=== PATIENT | female | born 1940 | race Caucasian/White ===

== ENCOUNTER 2024-09-12 12:44 | Outpatient (CLI) | payer MEDICARE, SELFPAY ==
--- NOTE | ~2024-09-12 | MR_ITS ---
MRI of the lumbar spine Clinical History: Spinal stenosis Technique: Axial T2-weighted images, and sagittal T1-weighted, T2-weighted, and T2 fat-sat images wer e acquired. Findings: There is posterior and interbody fusion from L5 to S1, bilaterally and transpedicular screw s present. There is L5 laminectomy. No acute fracture seen. There are probable minimal grade 1 retrol istheses, of L2 over L3 and L4 over L5. No suspicious bone marrow signal abnormality seen. At L1-L2, there is mild degenerative disc narrowing with minimal disc bulge and moderate facet arthro jim. No central canal stenosis. There is moderate to advanced bilateral neural foraminal narrowing, right worse than left. At L2-L3, there is severe degenerative disc narrowing. There is disc bulge and severe facet arthropat hy, which result in severe spinal canal stenosis/thecal sac compression. There is severe right neural foraminal narrowing, and moderate left neural foraminal narrowing. At L3-L4, there is moderate degenerative disc narrowing. Diffuse disc bulge and severe facet arthropa thy result in severe spinal canal stenosis/thecal sac compression. There is superimposed 8 mm right s ynovial cyst, which also contributes to spinal canal stenosis at this level. There is severe bilatera l neural foraminal compromise. At L4-L5, there is severe degenerative disc narrowing. There is diffuse disc bulge with advanced face t arthropathy. No claudia central canal stenosis. There is severe bilateral neural foraminal narrowing, left worse than right. At L5-S1, there is no significant disc bulge or herniation. No spinal canal stenosis, likely related to prior posterior decompression. There is probable moderate bilateral neural foraminal compromise. Paravertebral soft tissues are unremarkable. Impression: Severe degenerative spondylosis, especially at L2-L3 and L3-L4, as detailed above. Moderate degenerative spondylosis to the remaining lumbar levels. Postoperative change at L5-S1, as above. Reviewed, dictated and finalized at location M. NE CONTENT COORDINATOR Impression: Severe degenerative spondylosis, especially at L2-L3 and L3-L4, as detailed abo ve. Moderate degenerative spondylosis to the remaining lumbar levels. Postoperative change at L5-S1, as above.
== END 2024-09-12 12:45 | disposition home or self-care (01) ==
LOC: GOSHIMG 12:45
PROVIDERS: PCP Orthopaedic Surgery; Visit Provider Orthopaedic Surgery
DX: M47.816 Spondylosis without myelopathy or radiculopathy, lumbar region (principal); Z98.890 Other specified postprocedural states
CPT/HCPCS: 72148

== ENCOUNTER 2025-04-12 21:19 | Emergency (ER) | payer MEDICARE, SELFPAY ==
--- NOTE | ~2025-04-12 | XR_ITS ---
XR chest 1V portable Ordering provider: Ulises Mcmahon MD History: 85 years Female with . chest pain . Comparison: None. FINDINGS: MEDIASTINUM: The cardiac silhouette is not enlarged. Calcified azygos lymph node. LUNGS: No effusions or pneumothorax. Prominent bronchovascular markings with infiltrate seen in the right lower lobe OTHER: No free air under the diaphragm. IMPRESSION: Right basilar atelectasis versus pneumonia. Follow-up and clinical correlation advised. Reviewed, dictated and finalized at location A.
[2025-04-12 21:27] VITALS: PULSE 77
--- NOTE | 2025-04-12 21:27 | ECG_ITS ---
Test Date: 2025-04-12 21:41:03 Measurements Intervals Wilson Rate: 75 P: 39 MS: 199 QRS: -17 QRSD: 90 T: 113 QT: 397 QTc: 445 Interpretive Statements SINUS RHYTHM LEFT VENTRICULAR HYPERTROPHY AND ST-T CHANGE [VOLTAGE CRITERIA PLUS ST/T ABNORMALITY] No previous ECG available for comparison Electronically Signed On 04-13-2025 11:48:48 CDT by Edward Anthony M.D.
[2025-04-12 21:28] VITALS: BP 147/90; PULSE 76; RESP 19; TEMP 36.4; O2SAT 95
[2025-04-12 21:35] VITALS: O2SAT 95
[2025-04-12 21:43] LABS: Hematocrit 42.2 % (37.0-47.0); Hemoglobin 14.2 g/dL (12.0-15.0); Immature Granulocyte Percent A 0.1 % (0-0.5); Lymphocytes Absolute Auto 2.78 K/mm3 (0.9-3.2); Mean Corpuscular HGB Conc 33.6 g/dl (32-36); Mean Corpuscular Hemoglobin 31.4 pg (26-34); Mean Corpuscular Volume 93.4 fl (80-100); Nucleated Red Blood Cells Absolute Auto 0.000 K/mm3 (0.0-0.012); Nucleated Red Blood Cells Perc 0.0 % (0.0-0.2); Platelet Count Result 227 k/mm3 (150-375); Red Blood Count 4.52 M/mm3 (4.2-5.4); White Blood Count 7.7 K/mm3 (4.5-10.0)
--- NOTE | 2025-04-12 21:47 | ED_ITS ---
HPI - Chest Pain General Chief Complaint: Chest Pain Stated Complaint: chest pain History of Present Illness HPI narrative: Patient is an 85-year-old female who presents emergency department this evening complaining of chest pain. States that are round 8:00 p.m. she started to feel some pressure on her chest. Denies any sharp stabbing chest pain. States that she felt a little short of breath during this episode. Denies any history of cardiovascular disease. States the chest pain does radiate into her neck. EMS did report that the patient upon arrival was found to be in AFib, however, she is currently in sinus rhythm while on the monitor. She was administered sublingual nitroglycerin prior to arrival. EMS reports that her heart rate was ranging between 80-140 but did normalize to 70s after the nitroglycerin. Patient is alert and oriented to person, place, time and situation. Denies any recent illness, fevers or chills. Denies any nausea vomiting or abdominal pain. No additional symptoms or concerns at this time. Related Data Home Medications ?Medication ?Instructions ?Recorded ?Confirmed ?Last Taken ?Type amitriptyline 25 mg tablet 25 mg PO QHS 10/10/21 12/19/24 Unknown History aspirin 81 mg tablet,delayed 81 mg PO DAILY 10/10/21 12/19/24 Unknown History release (Adult Low Dose Aspirin) atenolol 100 mg tablet 100 mg PO DAILY 10/10/21 12/19/24 Unknown History rosuvastatin 20 mg tablet 20 mg PO DAILY 10/10/21 12/19/24 Unknown History sumatriptan succinate 50 mg tablet 50 mg PO ONCE 10/10/21 12/19/24 Unknown History celecoxib 200 mg capsule 200 mg PO DAILY 10/24/24 12/19/24 Unknown History Allergies Allergy/AdvReac Type Severity Reaction Status Date / Time adhesive Allergy Unknown unknown Verified 12/19/24 10:58 doxycycline Allergy Unknown unknown Verified 12/19/24 10:58 levofloxacin (From Levaquin) Allergy Unknown unknown Verified 12/19/24 10:58 Review of Systems 2 Review of Systems: All systems are reviewed and are negative unless stated otherwise in the HPI. PMFSH Past Medical History Medical History High triglycerides Hypertension Surgical History Surgical History History of partial thyroidectomy History of back surgery x2 History of hysterectomy History of neck surgery History of right hip replacement 04/2018 Family History Family History Mother Hypertension Cerebrovascular accident Father ALS (amyotrophic lateral sclerosis) Social History Social History Smoking status: Former smoker Alcohol intake: never Substance use: never Substance use type: does not use Do You Feel Safe in your Home?: Yes Lack of Transportation: No Lack of Food: Never True Current Housing: I Have Housing Concerned About Future Housing: No Difficulty Paying Gas/Electric Bills: No Difficulty Paying for Meds: No Currently Unemployed: No Education: High School Diploma/GED Difficulty w/ Childcare or Family Care: No Living arrangements: with family Occupation/Education: retired Exam 2 Narrative: General: Alert, awake, afebrile, in no acute distress. HEENT: PERRL, no rhinorrhea, no post nasal drip, oropharynx clear. Neck: Trachea midline, no JVD, no lymphadenopathy. Cardiovascular: Regular rate and rhythm, no murmurs, rubs or gallops, no peripheral edema. Respiratory: Clear to auscultation bilaterally, no tachypnea, no wheezing, no rhonchi, no rubs, no respiratory distress. Abdomen: Soft, nontender, nondistended, no rebound, no guarding, no peritoneal signs. Musculoskeletal: No joint swelling or deformity, normal muscle tone. Skin: No rashes or petechia, no signs of infection. Psychiatric: Alert and oriented, normal behavior and judgment for situation. Neurological: Alert and oriented to person, place, and time. Follows all commands. No focal deficits, speech is clear and fluent. Course Vital Signs Vital signs: Vital Signs Pulse Rate 77 04/12/25 21:27 Temperature 97.6 F 04/12/25 21:28 Pulse Rate 74 04/12/25 22:55 Respiratory Rate 18 04/12/25 22:55 Blood Pressure 136/75 04/12/25 22:55 Pulse Oximetry 94 04/12/25 22:55 Oxygen Delivery Room Air 04/12/25 21:35 MDM - Chest Pain MDM Narrative Medical decision making narrative: The patient was evaluated by myself in the emergency department. History is obtained from patient who is an independent historian and physical exam was performed. External medical records were reviewed at this time. IV was established and pertinent tests were ordered. EKG was obtained which revealed sinus rhythm rate 75 beats per minute, no evidence of arrhythmia or acute ischemia. EKG was independently interpreted by me and is currently pending official cardiology read. Laboratory results obtained revealing no acute process. Two sets of troponins were obtained and both noted to be negative. I did recommend obtaining a 6 hour troponin giving the patient's chest pain started less than 6 hours ago, however, patient refused stating that she feels better and would like to be discharged. Imaging studies obtained included CXR which was independently interpreted by me revealing no acute cardiopulmonary process, which is pending final radiology interpretation. Differential diagnosis considerations include acute coronary syndrome, infectious process such as pneumonia, acute viral syndrome. Comorbidities impacting this visit include history of hypertension. I have evaluated and discussed social determinants of health with the patient that could potentially impact subsequent diagnosis and treatment plans. On repeat assessment of the patient, reevaluation revealed that the patient is doing well and is in no acute distress. Patient symptoms have improved since she arrived to our emergency department. Repeat vital signs were all reviewed and noted to be stable. Differential diagnosis and treatment plan were discussed with the patient at bedside. Patient agrees with discussion and after shared medical decision making agrees with discharge. All questions were answered to the patient's satisfaction. Patient will follow up with cardiology in 3-5 days. Patient was provided with strict return precautions and instructed to return to the emergency department if any new or worsening symptoms develop. The patient was discharged in stable condition. Lab Data 04/12/25 21:38 04/12/25 21:38 Labs: Lab Results 04/12/25 04/12/25 04/13/25 Range/Units 21:38 21:38 01:21 WBC 7.7 (4.5-10.0) K/mm3 RBC 4.52 (4.2-5.4) M/mm3 Hgb 14.2 (12.0-15.0) g/dL Hct 42.2 (37.0-47.0) % MCV 93.4 (80-100) fl MCH 31.4 (26-34) pg MCHC 33.6 (32-36) g/dl RDW 12.8 (11.5-14.5) % Plt Count 227 (150-375) k/mm3 MPV 9.6 (7.4-10.4) fl Immature Gran % (Auto) 0.1 (0-0.5) % Neut % (Auto) 46.6 (45.5-73.1) % Lymph % (Auto) 36.2 (18.3-44.2) % [place] % (Auto) 11.6 H (2.6-8.5) % Eos % (Auto) 4.7 H (0-4.4) % Baso % (Auto) 0.8 (0.2-1.2) % Lymph # (Auto) 2.78 (0.9-3.2) K/mm3 [place] # (Auto) 0.9 H (0.1-0.6) K/mm3 Eos # (Auto) 0.4 H (0-0.3) K/mm3 Baso # (Auto) 0.1 (0.0-0.1) K/mm3 Abs Immat Gran (auto) 0.01 (0.00-0.031) K/mm3 Absolute Neuts (auto) 3.6 (1.3-6.7) K/mm3 Absolute Nucleated RBC 0.000 (0.0-0.012) K/mm3 Nucleated RBC % 0.0 (0.0-0.2) % PT 13.7 (11.1-14.7) Seconds INR 1.1 APTT Cancelled 28.5 Sodium 137 (137-145) mmol/L Potassium 3.5 (3.4-5.0) mmol/L Chloride 105 (98-107) mmol/L Carbon Dioxide 20 L (22-30) mmol/L Anion Gap 12 (4-12) mmol/L BUN 17 (7-17) mg/dL Creatinine 0.72 (0.7-1.0) mg/dL Estim Creat Clear Calc 44 ml/min Estimated GFR > 60 (59 - ) Glucose 149 H (65-110) mg/dL Calcium 8.8 (8.4-10.2) mg/dL Magnesium 1.9 (1.6-2.3) mg/dL Total Bilirubin 0.3 (0.2-1.3) mg/dL AST 46 H (14-36) U/L ALT 44 H (6-35) U/L Alkaline Phosphatase 42 (38-126) U/L Troponin I < 0.012 < 0.012 (0.000-0.034) ng/mL Total Protein 7.3 (6.3-8.2) g/dL Albumin 4.1 (3.5-5.1) g/dL Lipase 89 (23-300) U/L Discharge Plan Discharge Clinical Impression: Chest pain Patient Disposition: Left Against Medical Advice Condition: Stable Instructions: Chest Pain (ED) Additional Instructions: Please follow-up with the family doctor within the next 3-5 days. Return to the emergency department if any new or worsening symptoms develop. You also provided with a Cardiology referral and a 2nd fall set up a follow-up appointment. Patient Language: Maldivian Prescriptions: No Action rosuvastatin 20 mg tablet 20 mg PO DAILY aspirin [Adult Low Dose Aspirin] 81 mg tablet,delayed release (DR/EC) 81 mg PO DAILY amitriptyline 25 mg tablet 25 mg PO QHS atenolol 100 mg tablet 100 mg PO DAILY sumatriptan succinate 50 mg tablet 50 mg PO ONCE celecoxib 200 mg capsule 200 mg PO DAILY Follow-up/Referrals: Xochitl Chapa DO [Physician] - 3 Days Monika Michael APRN [Primary Care Provider] - Time of Disposition: 03:36
--- OUTSIDE RECORDS SUMMARY | 2025-04-12 21:52 | XMS_ITS | Clinical Summary ---
Author Organization [facility] Address [address] [place] [address] Care Team Providers Care Volunteer Recruiter Name Role Phone Jose Maria Delgado MD Primary Care Provider Source Comments [facility],non-owned Affiliates and Associated Physician Practices is amultiple site organization consisting of ambulatory clinics and hospital sitesin [place], [place], [place] and [place]. This disclosure is being madepursuant to the Care Everywhere program and may not contain all information available regarding this patient. Last updated 18.[facility] Allergies Active Allergy Reactions Criticality Noted Date Comments Adhesive Sensitivity Rash Low 06/13/2010 Red rash Levofloxacin Nausea and/or Vomiting 10/17/2015 Medications * Be aware that medications may not be up to date on this document. Alwaysverify current medications with the patient. simvastatin (ZOCOR) 80 MG tablet Take 80 mg by mouth at bedtime. Active sumatriptan (IMITREX) 50 MG tablet Take 50 mg by mouth as needed. 0 Active Specialty Vitamins Products (ICAPS LUTEIN-ZEAXANTH IN PO) Take 1 Tab by mouth daily. 0 Active calcium-vitamin D (CALTRATE PLUS D) 600-200 MG-UNIT tablet Take 1 Tab by mouth 2 times daily. 0 Active vitamin E (TOCOPHERYL) 400 UNIT capsule Take 400 Units by mouth 2 times daily. 0 Active methocarbamol (ROBAXIN) 750 MG tablet Take 1 Tab by mouth every 8 hours. 30 Tab 1 0 Active Additional Information Patient not taking.Reported on 10/17/2015 methylPREDNISol one (MEDROL DOSEPAK) 4 MG tablet Take by mouth as directed. 1 Packet 0 0 Active Additional Information Patient not taking.Reported on 10/17/2015 hydrocodone-arlyn taminophen (NORCO) 5-325 MG tablet Take 1-2 Tabs by mouth every 4 hours as needed for Pain. 40 Tab 1 0 Active Additional Information Patient not taking.Reported on 10/17/2015 aspirin (ASPIRIN) 81 MG tablet Take 81 mg by mouth once daily Active atenolol (TENORMIN) 100 MG tablet Take 100 mg by mouth once daily Active piroxicam (FELDENE) 10 MG capsule Take 1 Cap by mouth once daily 30 Cap 5 6 Active amitriptyline (ELAVIL) 25 MG tablet Take 1 Tab by mouth at bedtime 30 Tab 5 6 Active Active Problems Problem Noted Date Diagnosed Date Status post lumbar spine operation 08/14/2010 Open wound of back 07/01/2010 Overview (07/05/2015): Spondylolisthesis 06/20/2010 Resolved Problems Problem Noted Date Diagnosed Date Resolved Date 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 06/20/2010 Family History Medical History Relation Name Comments Other Father als Stroke Mother Relation Name Status Comments Father Mother Social History Tobacco Use Types Packs/Day Years Used Date Smoking Tobacco: Never Smokeless Tobacco: Never Alcohol Use Standard Drinks/Week Comments No 0 (1 standard drink = 0.6 oz pur e alcohol) Comments Unknown Sex and Gender Information Value Date Recorded Sex Assigned at Not on file Legal Sex Female 9:14 AM STONE ENGRAVER Gender Identity Not on file Sexual Orientation Not on file Occupation Industry Job Start Date Job End Date RETIRED Not on file Not on file Not on file Last Filed Vital Signs Vital Sign Reading Time Taken Comments Blood Pressure 99/59 06/21/2010 9:12 AM CDT Pulse 88 06/21/2010 9:12 AM CDT Temperature 36.6 C (97.9 F) 06/21/2010 9:12 AM CDT Respiratory Rate 18 06/21/2010 9:12 AM CDT Oxygen Saturation 96% 06/21/2010 9:12 AM CDT Inhaled Oxygen Concentration - - Weight 68 kg (150 lb) 10/17/2015 9:57 AM STONE ENGRAVER Height 162.6 cm (5' 4) 10/17/2015 9:57 AM STONE ENGRAVER Body Mass Index 25.75 10/17/2015 9:57 AM STONE ENGRAVER Plan of Treatment Health Maintenance Due Date Last Done Comments BONE DENSITY TESTING 1940 DTAP/TDAP/TD VACCINES (1 - Tdap) 1961 PNEUMOCOCCAL VACCINE 50+ (1 of 1 - PCV) 01/25/1992 ZOSTER VACCINE (1 of 2) 01/25/1992 Respiratory Syncytial Virus (RSV) Vaccine Pt: or over 60 yrs (1 - 1-dose 75+ series) 2017 COVID-19 VACCINE ( - 2023-2 5 season) 2024 DEPRESSION SCREENING 10/05/2024 INFLUENZA VACCINE (Season Ended) 2025 HEPATITIS B VACCINE Aged Out No longe r eligible based on patient's age to complete this topic HIB VACCINE Aged Out No longer eligi ble based on patient's age to complete this topic HPV VACCINE Aged Out No longer eligi ble based on patient's age to complete this topic MENINGOCOCCAL (Group B) VACC INE SHARED DECISION-MAKING Aged Out No longer eligibl e based on patient's age to complete this topic MENINGOCOCCAL GROUPS A/C/Y/W VACCINE Aged Out No longer eligible b ased on patient's age to complete this topic Insurance MEDICARE [facility] Advance Directives * Full Code (Latest Code Status on File) Date Activated Date Inactivated Comments 06/20/2010 5:55 PM 06/22/2010 12:41 AM Care Teams Volunteer Recruiter Relationship Specialty Start Date End Date Jose Maria Delgado MD PCP - General Internal Medicine 08/15/15
--- OUTSIDE RECORDS SUMMARY | 2025-04-12 21:52 | XMS_ITS | Clinical Summary ---
Author Organization [facility] Address [address] [place] [id number] Care Team Providers Care Chip Machine Operator Name Role Phone Jose Maria Delgado MD Primary Care Provider [phone] Ashley Day NP Unavailable Allergies Active Allergy Reactions Criticality Noted Date Comments Adhesive Rash Medium 10/15/2020 Doxycycline Nausea only Low 10/15/2020 Levofloxacin Nausea And Vomiting,Vomiting Low 10/17 Medications amitriptyline (ELAVIL) 25 mg tablet Take 25 mg by mouth daily 0 Active atenoloL (TENORMIN) 100 mg tablet TK 1 T PO BID 0 Active SUMAtriptan (IMITREX) 50 mg tablet sumatriptan 50 mg tablet TK 1 T PO AOS OF HEADACHE. MAY REPEAT IN 2 H PRN 0 Active rosuvastatin (CRESTOR) 20 mg tablet rosuvastatin 20 mg tablet TAKE 1 TABLET BY MOUTH EVERY DAY Active meclizine (ANTIVERT) 25 mg tablet meclizine 25 mg tablet TAKE 1 TABLET BY MOUTH THREE TIMES DAILY FOR 10 DAYS Active lidocaine (LIDODERM) 5 % lidocaine 5 % topical patch Active ergocalciferol (VITAMIN D) 50,000 unit capsule TAKE 1 CAPSULE BY MOUTH WEEKLY 1 Active aspirin 81 mg enteric coated tablet aspirin 81 mg tablet,delayed release Take 1 tablet every day by oral route. 0 Active losartan (COZAAR) 25 mg tablet losartan 25 mg tablet TAKE 1 TABLET BY MOUTH EVERY DAY Active Active Problems Problem Noted Date Diagnosed Date Hypertension 10/17/2020 GERD (gastroesophageal reflux disease) Migraine 10/17/2020 Vertigo 10/17/2020 Hearing loss of left ear 10/17/2020 Impaired glucose tolerance 10/17/2020 Vitamin D deficiency 10/17/2020 Cervical spondylosis with myelopathy 10/16/2020 Overview (10/16/2020): Added automatically from request for surgery [id number] Immunizations Immunization Administration Dates Next Due Influenza, Quadrivalent, Hig h Dose, Preservative Free, Intrr 07/10/2020 Influenza, Trivalent, High D ose, Split, Preservative Free, Intramuscular 07/01/2018,06/23/2017,07/22/2016 Influenza, Trivalent, IM (MDV) 07/19/2019 Influenza, Unspecified 07/10/2020 [employer] (J&J) SARS-CoV-2 Vaccination 12/13/2020 Pneumococcal Conjugate PCV 13 09/25/2016 Pneumococcal Polysaccharide PPV23 10/05/2011 ZOSTER LIVE 10/05/2003 Surgical History Surgery Date Site/Laterality Comments HYSTERECTOMY BACK SURGERY SPINAL FUSION CARPAL TUNNEL RELEASE THYROIDECTOMY 10/05/2006 - 10/04/2007 CATARACT EXTRACTION, BILATERAL 1999 AND 2008 HIP SURGERY 04/04/2018 - 05/04/2018 Medical History Medical History Date Comments Arthritis Migraines Peripheral neuropathy Neuropathy in diabetes (HCC) Delayed emergence from general anesthesia Family History Medical History Relation Name Comments Arthritis Mother Hypertension Mother Stroke Mother Arthritis Sister Cancer Sister Anesthesia problems Neg Hx Relation Name Status Comments Mother Sister Social History Tobacco Use Types Packs/Day Years Used Date Smoking Tobacco: Former Smokeless Tobacco: Never Alcohol Use Standard Drinks/Week Comments Yes 0 (1 standard drink = 0.6 oz pur e alcohol) Comments No Sex and Gender Information Value Date Recorded Sex Assigned at Not on file Legal Sex Female 7:54 AM HOME COMPANION Gender Identity Not on file Sexual Orientation Not on file Obstetrics History Last Filed Vital Signs Vital Sign Reading Time Taken Comments Blood Pressure 111/85 10/18/2020 9:47 AM HOME COMPANION Pulse 73 10/18/2020 9:47 AM HOME COMPANION Temperature 36.6 C (97.9 F) 10/18/2020 3:27 AM HOME COMPANION Respiratory Rate 18 10/18/2020 3:27 AM HOME COMPANION Oxygen Saturation 92% 10/18/2020 9:47 AM HOME COMPANION Inhaled Oxygen Concentration - - Weight 67.6 kg (149 lb) 04/16/2021 10:59 AM CDT Height 162.6 cm (5' 4) 04/16/2021 10:59 AM CDT Body Mass Index 25.58 04/16/2021 10:59 AM CDT Plan of Treatment Health Maintenance Due Date Last Done Comments Depression Screening 1940 Osteoporosis Screening-Bone Density Scan 1942 DTaP/Tdap/Td Vaccine (1 - Tdap) 1953 Hepatitis B Screening 01/25/1960 Zoster Vaccine (2 of 3) 11/30/2003 10/05/2003 Well Visit 65+ 2007 Fall Risk Assessment 10/18/2021 10/18/2020 Covid-19 Vaccine (2 2023-2 5 season) 2024 12/13/2020 Influenza Vaccine (Season Ended) 2025 07/10/2020, 07/10/2020, 07/19/2019, Additional history exists Pneumococcal vaccine 65+ Completed 09/25/2016, 10/2011 Medical Devices Implanted Type Area Oliving Machine Operator Device Identifier Shelf Expiration Date Model / Serial / Lot Spinal Graft Tech [id number] [place] 1.5x1.5cm Flex Graft Bone Demineralized Bone Matrix - [id number] - [id number] Implanted:Qty: 1 on 10/17/2020 by Jose Maria Vines MD at [facility] N/A: Spine Cervical [employer] 04/30/2023 [id number] / [id number] / Musculoskeletal Transplant [id number] Frozen Spine 7d Lordotic Trapezoid Spacer Allograft - [id number] - [id number] Implanted:Qty: 1 on 10/17/2020 by Jose Maria Vines MD at [facility] N/A: Spine Cervical Musculoskeletal Transplant 04/05/2025 [id number] / [id number] / [employer] [id number] Maxan 9mm Cervical Spine Plate Bone - [id number] Implanted:Qty: 1 on 10/17/2020 by Jose Maria Vines MD at [facility] N/A: Spine Cervical [employer] [id number] / / [employer] [id number] 4mm 16mm Fix Screw Bone - [id number] Implanted:Qty: 2 on 10/17/2020 by Jose Maria Vines MD at [facility] N/A: Spine Cervical [employer] [id number] / / [employer] [id number] Maxan 4.5mm 14mm Fix Angle Spine Screw Bone - [id number] Implanted:Qty: 2 on 10/17/2020 by Jose Maria Vines MD at [facility] N/A: Spine Cervical [employer] [id number] / / Insurance MEDICARE [facility] MEDICARE [place] [address] MEDICARE CIG MEDICARE SUPPLEMENT INSURANCE MEDICARE MEDICARE Advance Directives For more information, please contact: [phone] * Full Code (Latest Code Status on File) Date Activated Date Inactivated Comments 10/17/2020 10:46 AM 10/18/2020 6:15 PM * Full Code Date Activated Date Inactivated Comments 10/16/2020 1:21 PM 10/17/2020 10:46 AM Care Teams Chip Machine Operator Relationship Specialty Start Date End Date Jose Maria Delgado MD PCP - General Internal Medicine 10/11/20 Ashley Day NP Nurse Practitioner Orthopedic Surgery 10/18/20
--- OUTSIDE RECORDS SUMMARY | 2025-04-12 21:52 | XMS_ITS | Data Portability ---
Author Organization [facility] [employer], Main Office Address [address] [place] [address] Care Team Providers Care Sneller Hand Name Role Phone LUIS ANGEL DELGADO Primary Care Provider [phone] LUIS ANGEL DELGADO Referring Provider Assessment Encounter Date Assessment Date Assessment LastModified by Organization Details LastModified Time 02/13/2023 02/13/2023 EKG shows sinus arrhythmia nonspecific ST changes ENT Complete echo 2 week culture blood work Chest x-ray Wellness completed [email or web address] Not available 03/01/2023 14:26:31 07/02/2023 07/02/2023 Will continue current therapy follow-up with me in 4 months her breathing has been stable for at least 6 months she says if he gets worse she will let us know [email or web address] Not available 07/12/2023 21:06:25 08/06/2023 08/06/2023 Impression: Patient has impingement tendinitis rotator cuff right shoulder. She may have partial-thickn ess or small full-thickness rotator cuff tear but does not exhibit weakness on exam today. She has been trying ibuprofen 600 mg 3 times a day but that did not seem to help. She would like another cortisone shot today is the last 1 gave her great relief for about 10 months. I reviewed with her that multiple cortisone shots can have a softening affect on the tendon and can predispose to tearing. She accepts this and would like to proceed with cortisone shot. Risk of infection discussed. After ChloraPrep prep, 20 mg of Kenalog and 4 cc of 0.5% ropivacaine injected into the subacromial space of the right shoulder from a posterior approach she tolerated this well. I will see her back as needed. [email or web address] Not available 08/30/2023 15:25:09 10/28/2023 10/28/2023 Tizanidine to use p.r.n. we will give her about 30 of those she will use them sparingly will continue current therapy she will follow-up with me in 4 months [email or web address] Not available 11/03/2023 21:35:54 Plan of Treatment Reminders Order Date Submit Date Provider Last Modified By Organization Details Last Modified Time Details Appointments None recorded. Lab CBC w/ auto diff 2022 023 [facility] (Lab), [address] [place], [address], 3 19:41:47 CMP, serum or plasma 2022 023 [facility] (Lab), [address] [place], [address], 3 20:03:23 TSH, serum or plasma 2022 023 [facility] (Lab), [address] [place], [address], 3 20:41:52 T4, free, serum 2022 023 [facility] (Lab), [address] [place], [address], 3 20:29:09 T3, free, serum or plasma 2022 023 [facility] (Lab), [address] [place], [address], 3 20:29:12 lipid panel, serum 2022 023 [facility] (Lab), [address] [place], [address], 3 20:03:17 Referral ENT surgery referral 2022 023 jose Gary MD, [address], [place], [address], 3 15:55:52 Procedures magaly maneuver (PROC) 2022 023 [facility], [address], [place], [address], 3 10:30:50 Surgeries None recorded. Imaging XR, shoulder 2022 023 [email or web address] [facility], [address], [place], [address], 3 10:47:02 US, echocardiog brijesh 2022 023 [facility] ([facility] Sched[facility]), [address], [place], [address], 3 14:58:26 cardiac telemetry - 2wk telemetry 2022 023 [facility], [address], [address], [place], [address], 3 10:33:51 electrocard iogram 2022 023 [email or web address] [facility] [address], [address], [place], [address], 3 16:11:12 XR, chest 2022 023 [email or web address] Not available 3 09:07:55 Medication Orders None recorded. Patient TargetsNo targets recorded. Patient Instructions Encounter Date Encounter Id Patient Instructions Last Modified By Organization Details Last Modified Time 02/13/2023 [id number] dementia rating scale-2* [email or web address] Not available 02/13/2023 16:11:12 depression screening* [email or web address] Not available 02/13/2023 16:11:12 alcohol misuse* Not available 02/13/2023 16:11:12 multi-dimensiona l health assessment questionnaire* [email or web address] Not available 02/13/2023 16:11:12 Personalized [facility] Plan and Screening Recommendations Advance Directives - Do you have one? No Patient declined information. Advance Directives - Do we have your advance directive on file in your health record? Primary Prevention/Interven tion (prevents or decreases the chance of common diseases from occurring) Smoking Risk: Non Smoker I have no recommendations. Alcohol Misuse Screening: Negative I have no recommendations. Weight: Appropriate Physical activity: Appropriate physical activity Nutrition: Average Refer to attached handout Heart-Healthy Diet: After Your Visit Fall Risk (screened today): High Refer to attached handout Preventing Falls: After your Visit Vaccines Pneumococcal: No further needed Influenza: Your next one in the fall of this year Chronic Disease Risks Stroke: Intermediate Risk Continue current treatment plan Heart Attack: Intermediate Risk Continue current treatment plan Clogging of the Arteries: Intermediate Risk Continue current treatment plan Diabetes: Low Risk I have no recommendations Secondary Prevention/Interven tion (detects treatable diseases before they may cause symptoms, disability, or ) Breast Cancer Screening with mammogram: No screening necessary Cervical/Uterine/Ov shaan Cancer Screening: No screening necessary Osteoporosis Screening: No screening necessary Date Screening Last Performed: 12/16/21 Colon Cancer Screening: Cologuard (DNA stool test) No screening necessary Date Screening Last Performed: Cologuard negative 12/17/21 Eye Disease Screening: Yearly visits Dementia Risk: Low I have no recommendations Depression Screening: Negative I have no recommendations. Not available 02/13/2023 12:08:20 Reason for Referral ENT Surgery Referral for Abhilash figueroa Referring Physician: Luis Angel Delgado, Internal Medicine, Encounter Date: 02/13/2023 Results Created Date Observation Date Name Description Value Unit Range Abnormal Flag Note LastModifiedBy Organization Detail LastModifiedTime 02/14/20 23 02/13/2023 CBC/C OMPLE TE BLD COUNT W/DIF F white blood cells 7.4 x10'3 /uL 4.2-10 .8 Not Available [facility] (Lab) [address] [place], [address], 02/13/2023 19:41:47 02/14/20 23 02/13/2023 CBC/C OMPLE TE BLD COUNT W/DIF F red blood cells 4.52 x10'6 /uL 3.80-5 .20 Not Available [facility] (Lab) [address] [place], [address], 02/13/2023 19:41:47 02/14/20 23 02/13/2023 CBC/C OMPLE TE BLD COUNT W/DIF F hemoglobin 14.4 g/dL 12.0-1 5.6 Not Available [facility] (Lab) [address] [place], [address], 02/13/2023 19:41:47 02/14/20 23 02/13/2023 CBC/C OMPLE TE BLD COUNT W/DIF F hematocrit 43.1 % 35.7-4 5.7 Not Available [facility] (Lab) [address] [place], [address], 02/13/2023 19:41:47 02/14/20 23 02/13/2023 CBC/C OMPLE TE BLD COUNT W/DIF F mean red cell volume 95.4 fL 82.0-9 9.0 Not Available [facility] (Lab) [address] [place], [address], 02/13/2023 19:41:47 02/14/20 23 02/13/2023 CBC/C OMPLE TE BLD COUNT W/DIF F mean red cell hemoglobin 31.9 pg 27.0-3 3.0 Not Available [facility] (Lab) [address] [place], [address], 02/13/2023 19:41:47 02/14/20 23 02/13/2023 CBC/C OMPLE TE BLD COUNT W/DIF F mean RBC HGB concentratio n 33.4 g/dL 31.0-3 6.0 Not Available [facility] (Lab) [address] [place], [address], 02/13/2023 19:41:47 02/14/20 23 02/13/2023 CBC/C OMPLE TE BLD COUNT W/DIF F red cell distribution width 13.0 % 11.8-1 5.5 Not Available [facility] (Lab) [address] [place], [address], 02/13/2023 19:41:47 02/14/20 23 02/13/2023 CBC/C OMPLE TE BLD COUNT W/DIF F platelets 261 x10'3 /uL 150-40 0 Not Available [facility] (Lab) [address] [place], [address], 02/13/2023 19:41:47 02/14/20 23 02/13/2023 CBC/C OMPLE TE BLD COUNT W/DIF F mean platelet volume 10.3 fL 9.0-12 .4 Not Available [facility] (Lab) [address] [place], [address], 02/13/2023 19:41:47 02/14/20 23 02/13/2023 CBC/C OMPLE TE BLD COUNT W/DIF F neutrophils 46.0 % 39.0-7 2.0 Not Available [facility] (Lab) [address] [place], [address], 02/13/2023 19:41:47 02/14/2002/13/2023 CBC/C OMPLE TE BLD COUNT W/DIF F lymphocytes 36.2 % 16.0-4 7.0 Not Available [facility] (Lab) [address] [place], [address], 02/13/2023 19:41:47 02/14/20 23 02/13/2023 CBC/C OMPLE TE BLD COUNT W/DIF F monocytes 12.8 % 5.0-12 .0 high Not Available [facility] (Lab) [address] [place], [address], 02/13/2023 19:41:47 02/14/20 23 02/13/2023 CBC/C OMPLE TE BLD COUNT W/DIF F eosinophils 4.0 % 1.0-7. 0 Not Available [facility] (Lab) [address] [place], [address], 02/13/2023 19:41:47 02/14/20 23 02/13/2023 CBC/C OMPLE TE BLD COUNT W/DIF F basophils 0.7 % 0.0-2. 0 Not Available [facility] (Lab) [address] [place], [address], 02/13/2023 19:41:47 02/14/2002/13/2023 CBC/C OMPLE TE BLD COUNT W/DIF F immature granulocytes 0.3 % 0.00-0 .50 Not Available [facility] (Lab) [address] [place], [address], 02/13/2023 19:41:47 02/14/20 23 02/13/2023 CBC/C OMPLE TE BLD COUNT W/DIF F neutrophils, absolute count 3.43 x10'3 /uL 1.5-8. 0 Not Available [facility] (Lab) [address] [place], [address], 02/13/2023 19:41:47 02/14/20 23 02/13/2023 CBC/C OMPLE TE BLD COUNT W/DIF F lymphocytes, absolute count 2.69 x10'3 /uL 1.07-3 .43 Not Available [facility] (Lab) [address] [place], [address], 02/13/2023 19:41:47 02/14/20 23 02/13/2023 CBC/C OMPLE TE BLD COUNT W/DIF F monocytes, absolute count 0.95 x10'3 /uL 0.29-0 .99 Not Available [facility] (Lab) [address] [place], [address], 02/13/2023 19:41:47 02/14/20 23 02/13/2023 CBC/C OMPLE TE BLD COUNT W/DIF F eosinophils, absolute count 0.30 x10'3 /uL 0.02-0 .53 Not Available [facility] (Lab) [address] [place], [address], 02/13/2023 19:41:47 02/14/20 23 02/13/2023 CBC/C OMPLE TE BLD COUNT W/DIF F basophils, absolute count 0.05 x10'3 /uL 0.01-0 .08 Not Available [facility] (Lab) [address] [place], [address], 02/13/2023 19:41:47 02/14/20 23 02/13/2023 CBC/C OMPLE TE BLD COUNT W/DIF F immature granulocytes ,absolute 0.02 x10'3 /uL 0.00-0 .05 Not Available [facility] (Lab) [address] [place], [address], 02/13/2023 19:41:47 02/14/20 23 02/13/2023 CBC/C OMPLE TE BLD COUNT W/DIF F nucleated red blood cells 0.0 % -0 Not Available [facility] (Lab) [address] [place], [address], 02/13/2023 19:41:47 02/14/20 23 02/13/2023 CBC/C OMPLE TE BLD COUNT W/DIF F NRBC# 0.00 x10'3 /uL Not Available [facility] (Lab) [address] [place], [address], 02/13/2023 19:41:47 02/14/20 23 02/13/2023 LIPID PANEL cholesterol 165 mg/dL 140-19 9 NIH JUAN CARLOS NSUS RECOM MENDA TION FOR YENI STERO L: ADULT CHILD LOW RISK: <200 <170 BORDE RLINE : <200- 239 ----- HIGH RISK: >240 >200 Not Available [facility] (Lab) [address] [place], [address], 02/13/2023 20:16:17 02/14/2002/13/2023 LIPID PANEL triglyceride s 292 mg/dL 0-150 high NIH JUAN CARLOS NSUS REPOR T RECOM MENDA TION FOR TRIGL YCERI ELISA: ADULT CHILD LOW RISK: <150 ----- BODER LINE: 150-1 99 ----- HIGH RISK: >200 ----- Not Available [facility] (Lab) [address] [place], [address], 02/13/2023 20:16:17 02/14/2002/13/2023 LIPID PANEL HDL cholesterol 50 mg/dL 40- Not Available [facility] (Lab) [address] [place], [address], 02/13/2023 20:16:17 02/14/2002/13/2023 LIPID PANEL LDL cholesterol, calculated 57 mg/dL 0-130 NIH JUAN CARLOS NSUS REPOR T RECOM MENDA TIONS FOR LDL: ADULT CHILD LOW RISK <130 <110 (OPTI MAL LDL) <100 ----- BORDE RLINE : 130-1 59 ----- HIGH RISK: >160 >130 A TRIGL YCERI DE RESUL T >400 INVAL IDATE S THE CALCU LATIO N FOR LDL FRACT IONAT ION - THE LDL RESUL T WILL NOT BE REPOR SMITH. Not Available [facility] (Lab) [address] [place], [address], 02/13/2023 20:16:17 02/14/2002/13/2023 COMPR EHENS YAZMIN METAB OLIC PANEL sodium 141 mmol/ L 137-14 5 Not Available [facility] (Lab) [address] [place], [address], 02/13/2023 20:03:23 02/14/2002/13/2023 COMPR EHENS YAZMIN METAB OLIC PANEL potassium 4.4 mmol/ L 3.5-5. 1 Not Available [facility] (Lab) [address] [place], [address], 02/13/2023 20:03:23 02/14/20 23 02/13/2023 COMPR EHENS YAZMIN METAB OLIC PANEL chloride 104 mmol/ L 98-107 Not Available [facility] (Lab) [address] [place], [address], 02/13/2023 20:03:23 02/14/20 23 02/13/2023 COMPR EHENS YAZMIN METAB OLIC PANEL carbon dioxide 30 mmol/ L 22-30 Not Available [facility] (Lab) [address] [place], [address], 02/13/2023 20:03:23 02/14/20 23 02/13/2023 COMPR EHENS YAZMIN METAB OLIC PANEL anion gap 11.4 mmol/ L 14-22 low Not Available [facility] (Lab) [address] [place], [address], 02/13/2023 20:03:23 02/14/20 23 02/13/2023 COMPR EHENS YAZMIN METAB OLIC PANEL glucose 78 mg/dL 70-99 Not Available [facility] (Lab) [address] [place], [address], 02/13/2023 20:03:23 02/14/20 23 02/13/2023 COMPR EHENS YAZMIN METAB OLIC PANEL BUN 22 mg/dL 8-19 high Not Available [facility] (Lab) [address] [place], [address], 02/13/2023 20:03:23 02/14/20 23 02/13/2023 COMPR EHENS YAZMIN METAB OLIC PANEL creatinine 0.96 mg/dL 0.66-1 .25 Not Available [facility] (Lab) [address] [place], [address], 02/13/2023 20:03:23 02/14/20 23 02/13/2023 COMPR EHENS YAZMIN METAB OLIC PANEL GFR 56 Refer ence Range : [place] ge GFR Healt hy Adult : >60 mL/mi n/1.7 3 m2 Chron ic Kidne y Disea se: 15-60 mL/mi n/1.7 3 m2 Kidne y Failu re: <15/m L/min /1.73 m2 www.n iddk. [facility].g ov The MDRD study equat ion has not been valid ated in child brijesh <18 years of age; pregn ant women ; the elder ly >85 years of age; or in some racia l or ethni c subgr oups, such as Hislizabeth nics. Outsi de the valid ated joe eters , estim ated GFR is less accur ate, requi ring clini lo judgm ent on a case- by-ca se basis . Clini lo inter preta tion for other races and ages must be made by the clini bella. The MDRD study equat ion has not been valid ated for the evalu ation of serum creat inine relat ed to nutri lois l statu s or medic ation usage . For perso ns <18 years of age, a pedia tric GFR calcu lator is avail able on the [facility] websi te: https ://alice horton.tamie saab.o rg/pr ofess ional s/kdo qi/gf r_cal culat or Not Available [facility] (Lab) [address] [place], [address], 02/13/2023 20:03:23 02/14/20 23 02/13/2023 COMPR EHENS YAZMIN METAB OLIC PANEL alkaline phosphatase 41 U/L 38-126 Not Available [facility] (Lab) [address] [place], [address], 02/13/2023 20:03:23 02/14/20 23 02/13/2023 COMPR EHENS YAZMIN METAB OLIC PANEL alanine aminotransfe rase 33 U/L 0-35 Not Available [facility] (Lab) [address] [place], [address], 02/13/2023 20:03:23 02/14/20 23 02/13/2023 COMPR EHENS YAZMIN METAB OLIC PANEL aspartate aminotransfe rase 38 U/L 15-37 high Not Available [facility] (Lab) [address] [place], [address], 02/13/2023 20:03:23 02/14/20 23 02/13/2023 COMPR EHENS YAZMIN METAB OLIC PANEL bilirubin, total 0.50 mg/dL 0.20-1 .30 Not Available [facility] (Lab) [address] [place], [address], 02/13/2023 20:03:23 02/14/20 23 02/13/2023 COMPR EHENS YAZMIN METAB OLIC PANEL calcium 10.3 mg/dL 8.4-10 .2 high Not Available [facility] (Lab) [address] [place], [address], 02/13/2023 20:03:23 02/14/20 23 02/13/2023 COMPR EHENS YAZMIN METAB OLIC PANEL total protein 7.4 g/dL 6.3-8. 2 Not Available [facility] (Lab) [address] [place], [address], 02/13/2023 20:03:23 02/14/20 23 02/13/2023 COMPR EHENS YAZMIN METAB OLIC PANEL albumin 4.2 g/dL 3.0-4. 4 Not Available [facility] (Lab) [address] [place], [address], 02/13/2023 20:03:23 02/14/20 23 02/13/2023 COMPR EHENS YAZMIN METAB OLIC PANEL globulin 3.2 g/dL 2.6-4. 2 Not Available [facility] (Lab) [address] [place], [address], 02/13/2023 20:03:23 02/14/20 23 02/13/2023 COMPR EHENS YAZMIN METAB OLIC PANEL A/G ratio 1.3 ratio 1.0-2. 0 Not Available [facility] (Lab) [address] [place], [address], 02/13/2023 20:03:23 02/14/20 23 02/13/2023 T4 FREE free T4 1.08 NG/dL 0.78-2 .19 Not Available [facility] (Lab) [address] [place], [address], 02/13/2023 20:29:09 02/14/20 23 02/13/2023 T3 FREE free T3 3.1 pg/mL 2.77-5 .27 Not Available [facility] (Lab) [address] [place], [address], 02/13/2023 20:29:12 02/14/20 23 02/13/2023 TSH thyroid-stim ulating hormone 3.770 uIU/m L 0.465- 4.680 Not Available [facility] (Lab) [address] [place], [address], 02/13/2023 20:41:52 02/14/20 23 elect rocar diogr am No observ ation record ed. [email or web address] [facility] [address] [facility] [address], [place], [address], 02/13/2023 12:37:29 02/14/20 23 XR, chest [facility] [address] [place] [address] [phone] Patien t Name: MACO ACOSTA Access ion #: [id number] Sex: F : 1939 7 Locati on: MO2 Attend ing Physic lb: LISHA DELGADO Orderi ng Physic lb: LISHA DELGADO Exam Date: 12:51 PM Exam Name: XR CHEST 2V Admitt ing Diagno sis(es ): RADIOL OGY REPORT - FINAL EXAM: XR CHEST 2V HISTOR Y: dyspne a 83-yea r-old female with shortn ess of breath . COMPAR SHELBI: None availa ble. TECHNI QUE: 2 views of the chest were perfor med. FINDIN GS: No pneumo thorax , pulmon lizett edema, pleura l effusi ons, or consol idativ e infilt rates. There are large calcif ied lymph nodes in the right suprah ilar region . The heart is not enlarg ed. No fractu res are identi fied about the bony thorax . There is modera te thorac ic degene rative disc diseas e. There are postop erativ e change s of the cervic al spine and right anteri or neck, not fully imaged here. Page 1 of 2 [facility] t Name: MACO ACOSTA Access ion #: [id number] Sex: F : 1939 7 Exam Date: 12:51 PM Exam Name: XR CHEST 2V Admitt ing Diagno sis(es ): IMPRES GABRIEL: No acute intrat horaci c proces s. Create d and electr onical ly signed by: Pérez hernandez MD Signed Date: 1:00 PM (CT) Dictat ed by: Pérez hernandez MD DD: 1:00 PM (CT) DT: 1:00 PM (CT) Page 2 of 2 [facility] (Imaging) [address] [place], [address], 08/12/2023 09:07:55 02/17/20 23 02/13/2023 elect rocar diogr am No observ ation record ed. BARCODE [facility] [address], [place], [address], 02/16/2023 10:25:11 02/26/20 23 02/25/2023 , echo ardio gram No observ ation record ed. [email or web address] [facility] [address] [place], [address], 03/16/2023 12:35:47 03/09/20 23 02/25/2023 cardi ac telem etry No observ ation record ed. [email or web address] [facility] [address], [place], [address], 07/03/2023 09:21:10 04/16/20 23 02/13/2023 elect joanna sternaicha am No observ ation record ed. BARCODE [facility] [address], [place], [address], 04/16/2023 13:15:16 04/17/20 23 magaly maneu abhilash (PROC ) No observ ation record ed. [email or web address] [facility] [address], [place], [address], 04/17/2023 14:51:36 08/06/20 23 XR, shoul carolyn No observ ation record ed. [email or web address] [facility] [address] [facility], [place], [address], 08/30/2023 15:23:38 Result Notes Documentation Provider Name and Address Organization Details Recorded Time Xr, Chest : [facility] [address] [place] [address] Patient Name: MACO ACOSTA Sparkle Sex: F : 1940 Location: OR2 Attending Physician: LUIS ANGEL DELGADO Ordering Physician: LUIS ANGEL DELGADO Exam Date: 02/13/2023 12:51 PM Exam Name: XR CHEST 2V Admitting Diagnosis(es): RADIOLOGY REPORT - FINAL EXAM: XR CHEST 2V HISTORY: dyspnea 83-year-old female with shortness of breath. COMPARISON: None available. TECHNIQUE: 2 views of the chest were performed. FINDINGS: No pneumothorax, pulmonary edema, pleural effusions, or consolidative infiltrates. There are large calcified lymph nodes in the right suprahilar region. The heart is not enlarged. No fractures are identified about the bony thorax. There is moderate thoracic degenerative disc disease. There are postoperative changes of the cervical spine and right anterior neck, not fully imaged here. Page 1 of 2 [facility] Patient Name: MACO ACOSTA Sex: F : 1940 Exam Date: 02/13/2023 12:51 PM Exam Name: XR CHEST 2V Admitting Diagnosis(es): IMPRESSION: No acute intrathoracic process. Created and electronically signed by: Pérez Shields MD Signed Date: 02/13/2023 1:00 PM (CT) Dictated by: Pérez Shields MD (CT) (CT) Page 2 of 2 EMRE Seay [facility] [employer] [facility] 08/12/2023 09:07:55 Problems Name Problem SNOMED Code Status Onset Date Resolution Date Notes Provider Name and Address Organization Details Recorded Time Dysfunctio n of bilateral eustachian tubes 1706416338407 100 Active 2022 Not Available [facility] 3 00:11:43 Hyperchole sterolemia 44139230 Active Not Available [facility] 3 00:11:43 Acquired trigger finger 6755379 Active Not Available [employer] 3 00:11:43 Pain of left shoulder joint 2455797314790 9109 Active 2021 Not Available [employer] 3 00:11:43 Pain of right shoulder joint 1879523197510 9100 Active 2021 Not Available [facility] 3 00:11:43 Backache 265499981 Active Not Available [facility] 3 00:11:43 Radiothera py follow-up 904749013 Active Not Available [facility] 3 00:11:43 Localized, primary osteoarthr itis of the hand 158704131 Active Not Available [facility] 3 00:11:43 Localized, primary osteoarthr itis of the pelvic region and thigh 053557821 Active Not Available [facility] 3 00:11:43 Abdominal pain 71599085 Active Not Available [facility] 3 00:11:43 Radial styloid tenosynovi tis 98480529 Active Not Available [facility] 3 00:11:43 Gastroesop hageal reflux disease without esophagiti s 267293475 Active 2021 Not Available [facility] 3 00:11:43 Pure hyperchole sterolemia 805954491 Active Not Available [facility] 3 00:11:43 Adult health examinatio n Active 2021 Not Available [facility] 3 00:11:43 Vaginal discharge 689603851 Active Not Available [facility] 3 00:11:43 Screening for malignant neoplasm of colon Active 2021 Not Available [facility] 3 00:11:43 Low back pain 130435943 Active Not Available [facility] 3 00:11:43 Finding of fluid behind tympanic membrane 762739367 Active 2022 Not Available [facility] 3 00:11:43 Enthesopat hy of hip region 40685403 Active Not Available [facility] 3 00:11:43 Screening for disorder Active 2021 Not Available [facility] 3 00:11:43 Osteopenia 028542760 Active Not Available [facility] 3 00:11:43 Migraine 70609032 Active Not Available [facility] 3 00:11:43 Neuropathy 527392135 Active 2019 Not Available [facility] 3 00:11:43 Osteoarthr itis 684277061 Active Not Available [facility] 3 00:11:43 Dizziness 304017468 Active Not Available [facility] 3 00:11:43 Pain of shoulder region 39285937 Active 2021 Not Available [facility] 3 00:11:43 Foot pain 31825640 Active 2019 Not Available [facility] 3 00:11:43 Anxiety 64611337 Active 2017 Not Available [facility] 3 00:11:43 Pain of hip region 61376405 Active Not Available [facility] 3 00:11:43 Carpal tunnel syndrome 91471005 Active Not Available [facility] 3 00:11:43 Allergic rhinitis 19939943 Active 2022 Not Available [facility] 3 00:11:43 Derangemen t of knee 91134632 Active Not Available [facility] 3 00:11:43 Rhinitis 67222228 Active Not Available [facility] 3 00:11:43 Postmenopa usal state 12725249 Active 2021 Not Available [facility] 3 00:11:43 Degenerati on of interverte bral disc 39919116 Active Not Available [facility] 3 00:11:43 Fatigue 68291086 Active Not Available [facility] 3 00:11:43 Dyspnea 186188423 Active 2022 Not Available [facility] 3 00:11:43 Palpitatio ns 33850508 Active 2022 Not Available [facility] 3 00:11:43 Vertigo 799146121 Active 2022 Not Available [facility] 3 00:11:43 Benign paroxysmal positional vertigo 182942951 Active 2022 Not Available [facility] 3 00:11:43 Benign paroxysmal positional vertigo 378202755 Active 2022 Not Available [facility] 3 00:11:43 Dyspnea on exertion 52601615 Active 2022 Luis Angel Delgado MD [address] [place] [address] [place], [address] , [facility] [employer] [facility] 3 21:06:12 Acute urinary tract infection 776259279 Active 2022 Sheela Hurd vu, [facility] [employer] [facility] 3 14:48:53 Neck pain 37718367 Active 2023 Luis Angel Delgado MD [address] [place] [address] [address], [place], [address] , [facility] [employer] [facility] 4 12:30:43 Notes:02-12-2018--last eye ex am Jun 2017 Some problems listed in Document: #[id number] could not be added to this patient's chart. Please review this document and add these problems to the patient's chart manually as needed. Problem Notes None recorded. Procedures Surgical History Date Name Laterality Status Provider Name and Address Organization Details Recorded Time 02/14/20 23 Medicare Wellness CPT Code, subsequent completed Suki Cole RN [facility] [employer] [facility] 02/13/2023 11:58:59 10/16/19 21 osteotomy and discectomy of cervical spine by anterior approach completed Not Available [facility] 12/03/2022 02:43:11 05/25/20 18 Total hip arthroplasty completed Not Available [facility] 12/03/2022 02:43:11 02/24/20 18 Most Recent Bone Density completed Not Available [facility] 12/03/2022 02:43:02 02/23/20 18 Date of Last Colonoscopy completed Not Available [facility] 12/03/2022 02:43:02 10/31/19 17 Orthopedic Surgery completed Not Available [facility] 12/03/2022 02:43:11 11/01/19 16 Carpal tunnel surgery completed Not Available [facility] 12/03/2022 02:43:11 Orthopedic Surgery completed Not Available [facility] 12/03/2022 02:43:11 Thyroid Surgery completed Not Available [facility] 12/03/2022 02:43:11 Cataract Surgery completed Not Available [facility] 12/03/2022 02:43:11 Breast Biopsy completed Not Available [facility] 12/03/2022 02:43:11 Hysterectomy completed Not Available [facility] 12/03/2022 02:43:11 Imaging Results None recorded. Procedure Notes None recorded. Medical Equipment None Reported. Allergies Allergen ID Allergen Name Allergen Category Reaction Reaction Severity Criticality Documentation Date Start Date Code Code System Note Provider Name and Address Organization Details Recorded Time 5035 Levaquin medicatio n vomiting Not available Not available 12/03/2022 42242 2 RxNorm n/v Not Available [facility] 3 03:06:18 5036 doxycycli ne Not available nausea mild Not available 12/03/2022 3640 RxNorm Not Available [facility] 3 03:06:18 5037 adhesive tape environme nt,medica tion Not available Not available Not available 12/03/2022 33340 UNK Not Available [facility] 3 03:06:18 5038 adhesive environme nt,medica tion rash Not available Not available 12/03/2022 97671 UNK Not Available [facility] 3 03:06:18 Medications Name Sig Start Date Stop Date Status Note LastModified by Organization Details LastModified Time penicilli n V potassium 250 mg tablet TAKE 1 TABLET BY MOUTH FOUR TIMES DAILY UNTIL ALL TAKEN 07/19 completed Not Available Not Available Not Available amoxicill in 500 mg capsule 4 po 30 minutes before procedur e active Not Available Not Available No t Available buspirone 5 mg tablet Take 1 tablet twice a day by oral route. 10/28 completed Not Available Not Available Not Available atorvasta tin 80 mg tablet 08/08 completed Not Available Not Available Not Available prednison e 10 mg tablet 09/25 completed Not Available Not Available Not Available doxycycli ne hyclate 100 mg capsule 12/11 completed Not Available Not Available Not Available cefuroxim e axetil 250 mg tablet 02/12 completed Not Available Not Available Not Available clindamyc in HCl 300 mg capsule TAKE 1 CAPSULE BY MOUTH EVERY 8 HOURS 12/06 completed Not Available Not Available Not Available Pneumovax -23 25 mcg/0.5 mL injection solution active Not Available Not Available Not Available azithromy kasie 250 mg tablet 12/11 completed Not Available Not Available Not Available aspirin 325 mg tablet Take 1 tablet every day by oral route. 10/26 completed Not Available Not Available Not Available tizanidin e 4 mg tablet TAKE 1 TABLET BY MOUTH TWICE DAILY NEEDED active Not Available Not Available No t Available atenolol 100 mg tablet TAKE 1 TABLET BY MOUTH TWICE DAILY active Not Available Not Available No t Available tolterodi ne ER 4 mg capsule,e xtended release 24 hr TAKE 1 CAPSULE BY MOUTH EVERY DAY 02/13 completed Not Available Not Available Not Available hydrocodo ne 5 mg-acetam inophen 325 mg tablet TAKE ONE TABLET BY MOUTH TWICE DAILY 10/16 completed Not Available Not Available Not Available prednison e 20 mg tablet Take 2 tablets every day by oral route for 5 days. active Not Available Not Available No t Available clobetaso l 0.05 % topical cream APPLY TO HAND AND FOOT RASH TWICE DAILY 04/11 completed Not Available Not Available Not Available sumatript an 50 mg tablet active Not Available Not Available Not Available penicilli n V potassium 500 mg tablet TAKE 1 TABLET BY MOUTH FOUR TIMES DAILY UNTIL ALL TAKEN 12/06 completed Not Available Not Available Not Available meclizine 12.5 mg tablet Take 1 tablet 3 times a day by oral route as needed. active Not Available Not Available No t Available sulfameth oxazole 800 mg-trimet hoprim 160 mg tablet Take 1 tablet every 12 hours by oral route for 7 days. 02/06 completed Not Available Not Available Not Available hydrocodo ne 10 mg-acetam inophen 325 mg tablet 09/25 completed Not Available Not Available Not Available aspirin 81 mg tablet,de layed release Take 1 tablet every day by oral route. 2019 active Not Available Not Available Not Avai lable tramadol 50 mg tablet TAKE ONE TABLET BY MOUTH TWICE DAILY NEEDED 10/28 completed pharm only dispense d #14 07/27 Not Available Not Available Not Available amitripty line 50 mg tablet TAKE ONE TABLET BY MOUTH TWICE DAILY active Not Available Not Available No t Available Celebrex 200 mg capsule Take 1 capsule every day by oral route. 08/15 completed Not Available Not Available Not Available amitripty line 25 mg tablet TAKE 1 TABLET BY MOUTH EVERY DAY active Not Available Not Available No t Available Kenalog 10 mg/mL suspensio n for injection In office injectio n administ ered by the provider 07/02 completed [facility]: [phone] 4-20 Not Available Not Available Not Available meclizine 25 mg tablet TAKE 1 TABLET BY MOUTH THREE TIMES DAILY FOR 10 DAYS active Not Available Not Available No t Available pantopraz ole 40 mg tablet,de layed release TAKE 1 TABLET BY MOUTH EVERY DAY 02/13 completed Not Available Not Available Not Available halobetas ol propionat e 0.05 % topical ointment 02/12 completed Not Available Not Available Not Available lidocaine 5 % topical patch APPLY 1 PATCH BY TOPICAL ROUTE ONCE DAILY (MAY WEAR UP TO 12HOURS. ) 04/12 completed Not Available Not Available Not Available losartan 25 mg tablet TAKE 1 TABLET BY MOUTH EVERY DAY 02/13 completed Not Available Not Available Not Available metoprolo l tartrate 50 mg tablet Take 1 tablet twice a day by oral route. 10/16 completed Not Available Not Available Not Available ibuprofen 200 mg tablet Take 1 tablet every 6 hours by oral route. 12/14 completed Not Available Not Available Not Available diclofena c sodium 75 mg tablet,de layed release Take 1 tablet twice a day by oral route. active Not Available Not Available No t Available monteluka st 10 mg tablet Take 1 tablet every day by oral route. active Not Available Not Available No t Available piroxicam 10 mg capsule 02/06 completed Not Available Not Available Not Available halobetas ol propionat e 0.05 % topical cream 10/26 completed Not Available Not Available Not Available gabapenti n 100 mg capsule Take 1 capsule every day by oral route at bedtime. active Not Available Not Available No t Available ergocalci ferol (vitamin D2) 1,250 mcg (50,000 unit) capsule TAKE 1 CAPSULE BY MOUTH WEEKLY active Not Available Not Available No t Available azelastin e 137 mcg (0.1 %) nasal spray USE 1 SPRAY IN EACH NOSTRIL EVERY 12 HOURS 07/09 completed Not Available Not Available Not Available oxycodone -acetamin ophen 7.5 mg-325 mg tablet 02/06 completed Not Available Not Available Not Available methylpre dnisolone 4 mg tablets in a dose pack FOLLOW PACKAGE DIRECTIO NS 02/13 completed Not Available Not Available Not Available celecoxib 100 mg capsule 07/01 completed Not Available Not Available Not Available cefdinir 300 mg capsule Take 1 capsule every 12 hours by oral route. 02/13 completed Not Available Not Available Not Available fluticaso ne propionat e 50 mcg/actua tion nasal spray,destiny pension Inhale 2 sprays every day by intranas al route in the evening. 02/13 completed Not Available Not Available Not Available amoxicill in 875 mg-potass ium clavulana te 125 mg tablet 05/29 completed Not Available Not Available Not Available oxycodone 5 mg tablet active Not Available Not Available Not Available enoxapari n 40 mg/0.4 mL subcutane ous syringe 07/01 completed Not Available Not Available Not Available clobetaso l-emollie nt 0.05 % topical cream 02/06 completed Not Available Not Available Not Available rosuvasta tin 10 mg tablet TAKE 1 TABLET BY MOUTH EVERY DAY 02/16 completed Not Available Not Available Not Available rosuvasta tin 20 mg tablet TAKE 1 TABLET BY MOUTH EVERY DAY active Not Available Not Available No t Available rosuvasta tin 40 mg tablet TK 1 T PO QD active Not Available Not Available No t Available Prilosec OTC 20 mg tablet,de layed release Take by oral route. 07/08 completed Not Available Not Available Not Available nitrofura ntoin monohydra te/macroc rystals 100 mg capsule TAKE 1 CAPSULE BY MOUTH TWICE DAILY active Not Available Not Available No t Available Vytorin 10 mg-20 mg tablet TAKE ONE TABLET BY MOUTH ONCE DAILY 09/25 completed Not Available Not Available Not Available solifenac in 5 mg tablet TAKE 1 TABLET BY MOUTH EVERY DAY 07/09 completed Not Available Not Available Not Available Fish Oil 10/26 completed Not Available Not Available Not Available Triglycer reinaldo 11/02 completed Not Available Not Available Not Available Levaquin 11/02 completed Not Available Not Available Not Available Centrum 10/26 completed Not Available Not Available Not Available Calcium 500 10/26 completed Not Available Not Available Not Available lidocaine (PF) 10 mg/mL (1 %) injection solution In office injectio n administ ered by the provider 04/27 completed [facility]: [phone] 03-21 Not Available Not Available Not Available lidocaine (PF) 5 mg/mL (0.5 %) injection solution In office injectio n administ ered by the provider 07/09 completed Not Available Not Available Not Available ropivacai ne (PF) 5 mg/mL (0.5 %) injection solution In office injectio n administ ered by the provider 07/02 completed Not Available Not Available Not Available Myrbetriq 25 mg tablet,ex tended release Take 1 tablet every day by oral route. 2021 active Not Available Not Available Not Avai lable Fluvirin 7847-7394 45 mcg (15 mcg x 3)/0.5 mL intramusc ular suspensio n active Not Available Not Available Not Available Fluvirin 1519-8825 45 mcg (15 mcg x 3)/0.5 mL intramusc ular suspensio n active Not Available Not Available Not Available Fluzone High-Dose 2014- (PF) 180 mcg/0.5 mL intramusc ular syringe active Not Available Not Available Not Available Vascepa 0.5 gram capsule Take 2 capsules twice a day by oral route for 30 days. 02/16 completed Not Available Not Available Not Available Aspercrem e (lidocain e) 4 % topical patch 2020 active Not Available Not Available Not Avai lable Fluzone High-Dose 9887-4587 (PF) 180 mcg/0.5 mL intramusc ular syringe 10/16 completed Not Available Not Available Not Available Fluzone High-Dose (PF) 180 mcg/0.5 mL intramusc ular syringe Inject intramus cularly by the pharmaci st active Not Available Not Available No t Available Paxlovid 300 mg (150 mg x 2)-100 mg tablets in a dose pack TAKE 3 TABLETS BY MOUTH TWICE DAILY FOR 5 DAYS 07/02 completed Not Available Not Available Not Available Vitals Date Recorded Body height Body mass index (BMI) Body weight Body temperature Heart rate Oxygen saturation Oxygen saturation in Arterial blood by Pulse oximetry Systolic And Diastolic Provider Name and Address Organization Details Last Updated DateTime 4 157.48 cm 26.5 kg/m2 40956.8 9 g 97.4 [degF] 65 /min 95 % 95 % 128/72 mm[Hg] Raina barajas CMA [facility] [employer] [facility] 4 12:17:51 Date Recorded Body height Body mass index (BMI) Body weight Body temperature Heart rate Systolic And Diastolic Provider Name and Address Organization Details Last Updated DateTime 3 162.56 cm 25.4 kg/m2 18997.6 7 g 99.1 [degF] 64 /min 140/72 mm[Hg] Amrita Wang [facility] 3 11:45:16 Date Recorded Body height Body mass index (BMI) Body weight Body temperature Provider Name and Address Organization Details Last Updated DateTime 03/26/2023 162.56 cm 25.6 kg/m2 25531.7 g 97.8 [degF] Cassandra Lechuga RN [facility] [employer] [facility] 03/26/2023 12:34:19 Date Recorded Body height Body mass index (BMI) Body weight Body temperature Heart rate Systolic And Diastolic Provider Name and Address Organization Details Last Updated DateTime 3 162.56 cm 25.1 kg/m2 30575.4 9 g 97.4 [degF] 69 /min 140/80 mm[Hg] Amrita Wang Kari [facility] [employer] [facility] 3 12:01:52 Date Recorded Body height Body mass index (BMI) Body weight Provider Name and Address Organization Details Last Updated DateTime 08/06/2023 157.48 cm 26.5 kg/m2 20613.89 g Cheyanne Peralta [facility] 08/06/2023 15:01:11 Social History Question Answer Notes LastModified by Organization Details LastModified Time Tobacco Smoking Status Former Smoker quit age 45 Not Available [facility] 12/03/2022 02:29:04 Do You Have An Advance Directive? No [id number] Information not available 12/03/2022 Are You Blind Or Do You Have Difficulty Seeing? No [id number] Information not available 12/03/2022 What Is Your Level Of Caffeine Consumption? Moderate [id number] Information not available 12/03/2022 How Much Tobacco Do You Chew? None [id number] Information not available 12/03/2022 In The 14 Days Before Symptom Onset, Have You Had Close Contact With A Laboratory-conf irmed COVID-19 While That Case Was Ill? No MIGRATION.030 [id number] Information not available 12/03/2022 In The 14 Days Before Symptom Onset, Have You Had Close Contact With A Person Who Is Under Investigation For COVID-19 While That Person Was Ill? No MIGRATION.030 [id number] Information not available 12/03/2022 Are You Deaf Or Do You Have Serious Difficulty Hearing? Yes Hearing Aid Bi Laterial MIGRATION.030 [id number] Information not available 12/03/2022 What Type Of Diet Are You Following? REGULAR MIGRATION.030 [id number] Information not available 12/03/2022 Which Illicit Or Recreational Drugs Have You Used? None MIGRATION.030 [id number] Information not available 12/03/2022 What Is The Highest Grade Or Level Of School You Have Completed Or The Highest Degree You Have Received? [id number] MIGRATION.030 [id number] Information not available 12/03/2022 Have There Been Any Changes To Your Family Or Social Situation? No MIGRATION.030 [id number] Information not available 12/03/2022 What Is The Fluoride Status Of Your Home? Unknown MIGRATION.030 110763 Information not available 12/03/2022 When Did You Quit Smoking? 18+yearssincelastc igarette MIGRATION.030 [id number] Information not available 12/03/2022 Are There Any Guns Present In Your Home? No MIGRATION.030 [id number] Information not available 12/03/2022 Do You Use Insect Repellent Routinely? No MIGRATION.030 [id number] Information not available 12/03/2022 Where Do You Live? SingleLevelHouse With Basement Information not available 02/13/2023 Presence Of Domestic Violence No Information not available 02/13/2023 Guns Present In The Home? No Information not available 02/13/2023 Are You Able To Care For Yourself? Yes Information not available 02/13/2023 Are You Blind Or Do Yo Have Difficulty Seeing? No Information not available 02/13/2023 Are You Deaf Or Do You Have Serious Difficulty Hearing? Yes Information not available 02/13/2023 General Stress Level? Moderate Information not available 02/13/2023 Live Alone Of With Others? With Others Information not available 02/13/2023 Do You Have A Medical Power Of Stripper Latex? No MIGRATION.0301 [id number] Information not available 12/03/2022 What Was The Date Of Your Most Recent Tobacco Screening? 07/02/2023 [email or web address] Information not available 07/02/2023 Do You Have Any Pets? No MIGRATION.0301 [id number] Information not available 12/03/2022 What Is Your Relationship Status? MIGRATION.0301 [id number] Information not available 12/03/2022 Do You Use Your Seat Belt Or Car Seat Routinely? Yes MIGRATION.0301 [id number] Information not available 12/03/2022 Do You Have Smoke And Carbon Monoxide Detectors In Your Home? Yes MIGRATION.0301 [id number] Information not available 12/03/2022 Are You Passively Exposed To Smoke? No MIGRATION.0301 [id number] Information not available 12/03/2022 Are There Any Smokers In Your House? No MIGRATION.0301 [id number] Information not available 12/03/2022 How Much Tobacco Do You Smoke? No MIGRATION.0301 [id number] Information not available 12/03/2022 Do You Use Sunscreen Routinely? No MIGRATION.0301 191205 Information not available 12/03/2022 Has Tobacco Cessation Counseling Been Provided? No MIGRATION.0301 [id number] Information not available 12/03/2022 How Many Years Have You Smoked Tobacco? 20 MIGRATION.0301 200391 Information not available 12/03/2022 Have You Recently Traveled Abroad? No MIGRATION.0301 [id number] Information not available 12/03/2022 Do You Have Difficulty Walking Or Climbing Stairs? Yes MIGRATION.0301 [id number] Information not available 12/03/2022 Do You Have Any Dietary Restrictions? No Information not available 02/13/2023 Sex: Female Functional Status Question Answer Note LastModified by Organizat ion Details LastModified Time Do you use any illicit or recreational drugs? No MIGRATION.[id number] Information not available 12/03/2022 Do you or have you ever used any other forms of tobacco or nicotine? No MIGRATION.975821 0097 Information not available 12/03/2022 What is your level of alcohol consumption? None MIGRATION.102677 5746 Information not available 12/03/2022 Do you or have you ever used smokeless tobacco? Never used smokeless tobacco MIGRATION.254573 9394 Information not available 12/03/2022 Do you have transportation difficulties? No MIGRATION.364161 6536 Information not available 12/03/2022 Are you able to walk? YESWOREST Information not available 02/13/2023 Do you have difficulty doing errands alone? No Information not available 02/13/2023 Are you able to care for yourself? Yes MIGRATION.305246 7875 Information not available 12/03/2022 What is your occupation? retired MIGRATION.518270 1918 Information not available 12/03/2022 Do you have difficulty dressing or bathing? No MIGRATION.827395 7789 Information not available 12/03/2022 Do you or have you ever used e-cigarettes or vape? Never used electronic cigarettes MIGRATION.562561 7586 Information not available 12/03/2022 What is your exercise level? Occasional Information not available 02/13/2023 Mental Status Question Answer Note LastModified by Organizat ion Details LastModified Time Do you feel stressed (tense, restless, nervous, or anxious, or unable to sleep at night)? [id number] MIGRATION.[id number] 26 Information not available 12/03/2022 Do you have difficulty concentrating, remembering or making decisions? No MIGRATION.[id number] 26 Information not available 12/03/2022 Family History Relationship Description Onset Age of this Age Resolved Age Notes LastModified by Organization Details LastModified Time Mother Hypertensive disorder MIGRATION.256 [id number] Not available 12/03/2022 02:43:13 Mother Family history of stroke MIGRATION.189 [id number] Not available 12/03/2022 02:43:13 Father Amyotrophic lateral sclerosis MIGRATION.194 [id number] Not available 12/03/2022 02:43:13 Sister Malignant lymphoma 78 MIGRATION.820 [id number] Not available 12/03/2022 02:43:14 Notes:NO ENT Medical History Condition Response NERVE DISEASE Y BLINDNESS N RHEUMATIC FEVER N KIDNEY STONES N BLADDER PROBLEMS N MRSA N CARPAL TUNNEL SYNDROME N OTHER # 1 Y POLIO N LUNG DISEASE/DISORDER N HISTORY OF DRUG ABUSE N COPD N RADIATION / CHEMOTHERAPY N Other # 2 N SPORTS INJURY N ANKLE PAIN N BLOOD DISEASES N EAR OR HEARING PROBLEMS N MUMPS N SCHIZOPHRENIA N SHINGLES N SHOULDER PAIN N DEPRESSION (INCLUDING POST ) N BOWEL PROBLEMS N STROKE/TIA N KNEE PAIN N ULCERS N BENIGN PROSTATIC HYPERPLASIA N MEASLES N MYOCARDIAL INFARCTION N OBESITY N GERD/NAUSEA N ANEURYSM N URINARY/BLADDER/KIDNEY PROBLEMS N CORONARY ARTERY DISEASE (CAD) N ADDICTION CONCERNS N ENDOMETRIOSIS N Impotence N USE OF BLOOD THINNERS N SKIN PROBLEMS N EMPHYSEMA N GASTROINTESTINAL DISORDER N PERIPHERAL VASCULAR DISEASE N MUSCLE,JOINT OR BONE PROBLEMS N DVT N STOMACH ULCERS N GASTROINTESTINAL BLEEDING N BLOOD CLOTS N ASTHMA N CATARACTS N USE OF NSAIDS N CONCUSSION OR SPINAL TRAUMA N ERECTILE DYSFUNCTION N VARICOSITIES N GI PROBLEMS N Low Testosterone N NEUROPATHY N INFERTILITY N AIDS/HIV N FRACTURES N CHEMOTHERAPY / RADIATION N LIVER DISEASE N MALE HYPOGONADISM N ELBOW PAIN N HYPERTENSION Y Deficiency N TOURETTE'S N ANXIETY DISORDER N Metal allergy N BLOOD TRANSFUSION N ANEMIA/BLOOD DISORDER N CHRONIC EAR INFECTIONS N BIPOLAR DISORDER N BRONCHITIS N OSTEOARTHRITIS N TUBERCULOSIS N GLAUCOMA N FOOT PROBLEM N HEART VALVE DISORDERS N DIVERTICULITIS N CHICKENPOX N SLEEP APNEA N SOFT TISSUE INJURY N ALLERGIES/HAYFEVER N INFECTIOUS DISEASE N PROSTATE N HEART ARRHYTHMIA N INSOMNIA N RHEUMATOID ARTHRITIS N HIGH CHOLESTEROL / HYPERLIPIDEMIA N EYE PROBLEMS N HYPERTHYROIDISM N EDEMA N CHRONIC PAIN SYNDROME N HYPOTHYROIDISM N CAROTID BLOCKAGE N CONSTIPATION N BACK / NECK PROBLEMS Y HAVE YOU BEEN HOSPITALIZED OR SEEN IN [facility] IN THE PAST YEAR ? Y ATHEROSCLEROSIS N BURSITIS N BREAST PROBLEMS N HERNIATED DISC N DIALYSIS N ECZEMA N FIBROMYALGIA N OSTEOPOROSIS N ARTHRITIS Y NO SIGNIFICANT PAST MEDICAL HISTORY N PERIPHERAL NEUROPATHY N APPENDICITIS N DIABETES, TYPE N BAD TEETH N ENT N HEARTBURN / REFLUX N AUTISM SPECTRUM DISORDER (ASD) N HEPATITIS / LIVER DISEASE N GOUT N SLEEP DISORDER N ALZHEIMER'S DISEASE N Brain Problems N HERPES N DEMENTIA N HEADACHES/MIGRAINES N SEIZURES/EPILEPSY N VASCULAR DISEASE N PACEMAKER N Blood Disorder N HIP PAIN N DIZZINESS N HEAD TRAUMA OR INJURY N HEART DISEASE/HEART PROBLEMS N KIDNEY DISEASE N MULTIPLE SCLEROSIS N CARDIAC ARRHYTHMIA N CANCER: SPECIFY N ANESTHESIA COMPLICATIONS N ATRIAL FIBRILLATION N Gall Stones N PULMONARY EMBOLISM N AUTOIMMUNE DISEASE N Gynecological History Statement/Question Response Menses Monthly N Date of Last Pap Date of Last Mammogram 02/23/2018 Current Control Method Hysterectom y Date of Last Colonoscopy 02/22/2018 Most Recent Bone Density 02/23/2018 Obstetrics History GPAL:G 2 P 2 0 0 0 Type Value Full Term 2 Total 2 Immunizations Vaccine Type Date Status Note Provider Nam e and Address Organization Details Recorded Time influenza, unspecified formulation 2 completed Not Available [facility] 06/16/2023 04:21:25 COVID-19, mRNA, LNP-S, PF, 30 mcg/0.3 mL dose 2 completed Not Available [facility] 06/16/2023 04:21:25 COVID-19, mRNA, LNP-S, PF, 30 mcg/0.3 mL dose 2 completed Not Available [facility] 06/16/2023 04:21:25 COVID-19 vaccine, vector-nr, rS-Ad26, PF, 0.5 mL 1 completed Not Available [facility] 06/16/2023 04:21:25 Influenza, split virus, trivalent, preservative 9 completed Not Available [facility] 06/16/2023 04:21:26 Influenza, high-dose, trivalent, PF 8 completed Not Available [facility] 06/16/2023 04:21:25 Influenza, high-dose, trivalent, PF 7 completed Not Available [facility] 06/16/2023 04:21:25 Influenza, high-dose, trivalent, PF 6 completed Not Available [facility] 06/16/2023 04:21:26 COVID-19 vaccine, vector-nr, rS-ChAdOx1, PF, 0.5 mL 1 completed Not Available [facility] 06/16/2023 04:21:25 pneumococcal polysaccharide PPV23 2 completed Not Available [facility] 06/16/2023 04:21:25 zoster live 4 completed Not Available [facility] 06/16/2023 04:21:25 Influenza, high-dose, quadrivalent, PF 1 completed Not Available [facility] 06/16/2023 04:21:25 Influenza, high-dose, quadrivalent, PF 0 completed Not Available [facility] 06/16/2023 04:21:25 Pneumococcal conjugate PCV 13 6 completed Not Available [facility] 06/16/2023 04:21:25 Past Encounters Encounter ID Performer Location Encounter Start Date Encounter Closed Date Diagnosis/Indication Diagnosis SNOMED-CT Code Diagnosis ICD10 Code Diagnosis Note [id number] Luis Angel Delgado MD [facility] Internal Med [facility] [address] [place] [address] [address] 12/14/2020 00:00:00 12/14/2020 21:49:10 [id number] Luis Angel Delgado MD [facility] Internal Med [facility] [address] [place] [address] [address] 04/12/2021 00:00:00 04/13/2021 21:25:52 [id number] Daniel Mo MD [facility] [place] [address] [facility] [address] [place] [address] 07/19/2021 00:00:00 07/19/2021 13:00:41 [id number] Luis Angel Delgado MD [facility] Internal Med [facility] [address] [place], [place] [address] [address] 08/09/2021 00:00:00 08/18/2021 22:20:38 [id number] Luis Angel Delgado MD [facility] Internal Med [facility] [address] [place] [address] 12/06/2021 00:00:00 12/29/2021 16:56:16 [id number] Luis Angel Delgado MD [facility] Internal Med [facility] [address] [place] [address] 03/11/2022 00:00:00 03/11/2022 18:36:46 [id number] Daniel Mo MD [facility] [place] [address] [facility] [address] [place] [address] 03/26/2022 00:00:00 03/26/2022 15:28:00 [id number] Luis Angel Delgado MD [facility] Internal Med [facility] [address] [place] [address] 04/11/2022 00:00:00 05/05/2022 22:41:13 [id number] Daniel Mo MD [facility] [place] [address] [place] [address] 07/09/2022 00:00:00 07/10/2022 09:45:36 [id number] Luis Angel Delgado MD [facility] Internal Med [facility] [address] [address] 08/15/2022 00:00:00 08/16/2022 17:54:56 [id number] Daniel Mo MD [facility] [place] [address] [place] [address] 08/20/2022 00:00:00 08/20/2022 11:52:25 [id number] Jose Gary MD [facility] [place] [address] [place] [address] 11/18/2022 00:00:00 11/18/2022 12:42:03 [id number] Luis Angel Delgado MD [facility] Internal Med [facility] [address] [address] 02/13/2023 11:14:36 02/13/2023 12:32:05 Anxiety 89886242 F41.9 Adult [facility] th examination 159244778 Z00.00 Screening for disorder 256502167 Z13.9 Dyspnea 162484571 R06.00 Hypercholesterolemia 136 21871 E78.00 Palpitations 49750664 R0 0.2 Vertigo 409477915 R42 [id number] Jose Gary MD [facility] [place] [address] [place] [address] 03/26/2023 12:25:43 03/26/2023 12:46:16 Benign paroxysmal positional vertigo 997486917 H81.10 [id number] Luis Angel Delgado MD [facility] Internal Med [facility] [address] [address] 07/02/2023 11:29:29 07/02/2023 12:55:10 Gastroesophageal reflux disease without esophagitis 194081324 K21.9 Anxiety 17531200 F41.9 Benign par oxysmal positional vertigo 733825389 H81.10 Hypercholesterolemia 136 56110 E78.00 Migraine 54514376 G43.90 9 Dyspnea on exertion 6084 5006 R06.09 [id number] Daniel Mo MD [facility] [place] [address] [place] [address] 08/06/2023 14:15:56 08/31/2023 10:47:01 Pain of right shoulder joint [id number] 7202146 M25.216 [id number] Luis Angel Delgado MD [facility] [address] [facility] [place] [address] 10/28/2023 10:57:22 10/28/2023 12:23:41 Gastroesophageal reflux disease without esophagitis 482916393 K21.9 Anxiety 97616182 F41.9 Pure hypercholesterolemia 785576140 E78.00 Neuropathy 951791510 G62 .9 Migraine 62790364 G43.90 9 Neck pain 35628560 M54.2 Health Concerns Section Related Observation LastModified by Organization Detai ls LastModified Time None Recorded Concern Status LastModified by Organization Details LastModified Time None Recorded Advance Directives Directive N: Payers Insurance Date Sequence Insurance Name Policy Number Policy Lee Covered Member ID Lee Member ID Guarantor Name 03/07/2025 1 [place] Maco Villagran Dave [id number] Maco Villagran Dave 03/07/2025 2 [employer] SUPPLEMENTAL - [employer]URANCE (MEDICARE SUPPLEMENT) Maco Villagran Dave [id number] Maco Sparkle Dave Notes Date Note Type Note Provider Name and Address Organization Details Recorded Time 02/13/2023 text/html Some persistent vertigoOccasional dyspnea some arrest some notDyslipidemia trying to follow low-fat dietOccasional palpitation but no syncope or presyncopeAnxiety stableMigraine stable Luis Angel Delgado MD [address] [facility], [place], [address], [place] [facility] 03/01/2023 14:26:52 03/26/2023 text/html this patient has had positional vertigo for 8 years. She reports having had an MRI which was normal and a carotid Doppler which was also normal. She has not had any balance test Jose Gary MD [address], [place], [address], [employer] 03/26/2023 12:45:07 07/02/2023 text/html Some persistent vertigoOccasional dyspnea no chest pain saw cardiology who she said ordered a bunch of tests test none of which she wants to pursueDyslipidemia trying to follow low-fat dietOccasional palpitation but no syncope or presyncopeAnxiety stableMigraine stable Luis Angel Delgado MD [address], [place], [address], [employer] 07/12/2023 21:06:41 08/06/2023 text/html Patient returns. She has had recurrence of right shoulder symptoms. She was last seen August 2022 i. she had a cortisone shot for suspected chronic rotator cuff tear symptoms the right shoulder at that time. Just prior to that she had only gone to 3 visits of physical therapy for shoulder and she felt the therapy was making things worse. She had a cortisone shot in March, Earlier in 2021 as well. She did very well following the last injection until about 2 months ago and since then she has had recurrence of posterolateral right shoulder pain. She would like another cortisone shot today. She also had symptoms in her neck forearm at times primarily the pain is in the posterolateral shoulder with use. Daniel Mo MD [address], [place], [address], [employer] 08/30/2023 15:25:25 10/28/2023 text/html Some persistent vertigoOccasional dyspnea no chest pain saw cardiology who she said ordered a bunch of tests test none of which she wants to pursueDyslipidemia trying to follow low-fat dietOccasional palpitation but no syncope or presyncopeAnxiety stableMigraine Campbell has some back spasm from time to time with her neck Luis Angel Delgado MD [address], [place], [address], [employer] 11/03/2023 22:01:15 OBGyn Episode No OBEpisode recorded.
--- OUTSIDE RECORDS SUMMARY | 2025-04-12 21:52 | XMS_ITS | Referral Summary ---
Author Organization [facility] Address [address] [place] [address] Care Team Providers Care Cookie Padder Name Role Phone Jose Maria Delgado MD Primary Care Provider [phone] Ashley Dya NP Unavailable Allergies Active Allergy Reactions Criticality [...] (10/16/2020): Added automatically from request for surgery [id number] Immunizations Immunization Administration Dates Next Due Influenza, Quadrivalent, Hig h Dose, Preservative Free, Intrr 07/10/2020 Influenza, Trivalent, High D ose, Split, Preservative Free, Intramuscular 07/01/2018,06/23/2017,07/22/2016 Influenza, Trivalent, IM (MDV) 07/19/2019 Influenza, Unspecified 07/10/2020 [employer]romb[employer] (J&J) SARS-CoV-2 Vaccination 12/13/2020 Pneumococcal Conjugate PCV 13 09/25/2016 Pneumococcal Polysaccharide PPV23 10/05/2011 ZOSTER LIVE 10/05/2003 Social History Tobacco Use Types Packs/Day Years Used Date Smoking Tobacco: Former Smokeless Tobacco: Never Alcohol Use Standard Drinks/Week Comments Yes 0 (1 standard drink = 0.6 oz pur e alcohol) Comments No Sex and Gender Information Value Date Recorded Sex Assigned at Not on file 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 Gender Identity Not on file Sexual Orientation Not on file Last Filed Vital Signs Vital Sign Reading Time Taken Comments Blood Pressure 111/85 10/18/2020 9:47 AM JUNIOR ACCOUNTING CLERK Pulse 73 10/18/2020 9:47 AM JUNIOR ACCOUNTING CLERK Temperature 36.6 C (97.9 F) 10/18/2020 3:27 AM JUNIOR ACCOUNTING CLERK Respiratory Rate 18 10/18/2020 3:27 AM JUNIOR ACCOUNTING CLERK Oxygen Saturation 92% 10/18/2020 9:47 AM JUNIOR ACCOUNTING CLERK Inhaled Oxygen Concentration - - Weight 67.6 kg (149 lb) 04/16/2021 10:59 AM CDT Height 162.6 cm (5' 4) 04/16/2021 10:59 AM CDT Body Mass Index 25.58 04/16/2021 10:59 AM CDT Plan of Treatment Not on file Medical Devices Implanted Type Area Awake Overnight Counselor Device Identifier Shelf Expiration Date Model / Serial / Lot Spinal Graft Tech [id number] Gay 1.5x1.5cm Flex Graft Bone Demineralized Bone Matrix - [id number] - [id number] Implanted:Qty: 1 on 10/17/2020 by Jose Maria Vines MD at [facility] N/A: Spine Cervical [employer] 04/30/2023 [id number] / [id number] / Musculoskeletal Transplant [id number] Frozen Spine 7d Lordotic Trapezoid Spacer Allograft - [id number] - [id number] Implanted:Qty: 1 on 10/17/2020 by Jose Maria Vines MD at [facility] N/A: Spine Cervical Musculoskeletal Transplant 04/05/2025 [id number] / [id number] / [employer] [id number] Maxan 9mm Cervical Spine Plate Bone - [id number] Implanted:Qty: 1 on 10/17/2020 by Jose Maria Vines MD at [facility] N/A: Spine Cervical [employer] [id number] / / [employer] [id number] 4mm 16mm Fix Screw Bone - [id number] Implanted:Qty: 2 on 10/17/2020 by Jose Maria Vines MD at [facility] N/A: Spine Cervical [employer] [id number] / / [employer] [id number] Maxan 4.5mm 14mm Fix Angle Spine Screw Bone - [id number] Implanted:Qty: 2 on 10/17/2020 by Jose Maria Vines MD at [facility] N/A: Spine Cervical [employer] [id number] 4 / / Insurance MEDICARE [facility] MEDICARE SUPPLEMENT INSURANCE MEDICARE [facility] MEDICARE SUPPLE[place] [address] MEDICARE Advance Directives For more information, please contact: [phone] * Full Code (Latest Code Status on File) Date Activated Date Inactivated Comments 10/17/2020 10:46 AM 10/18/2020 6:15 PM * Full Code Date Activated Date Inactivated Comments 10/16/2020 1:21 PM 10/17/2020 10:46 AM Care Teams Cookie Padder Relationship Specialty Start Date End Date Jose Maria Delgado MD PCP - General Internal Medicine 10/11/20 Ashley Day NP Nurse Practitioner Orthopedic Surgery 10/18/20
--- OUTSIDE RECORDS SUMMARY | 2025-04-12 21:53 | XMS_ITS | Continuity of Care Document ---
Author Organization [facility] Address [address] [place] [address] Phone Care Team Providers Care Solar Pool Heating Installer Name Role Phone Pete Bridges Unavailable Unavailable [...] Providers Copied on Encounter Office/outpat ient Visit, [facility], [address] [place] [address] [address], [place], [place], [id number], [place] tel:[phone] [facility] No Information 9-201 0 Yuliana Pete. [address] [facility] [address], [place], [address], [place]. tel:[phone] Office/outpat ient Visit, [facility], [address], [place], [place], [id number], [place] tel:[phone] [facility] No Information Brayden-2 0-200 9 Krishnasamy Pete. [address] [facility] [address], [place], [address], [place]. tel:[phone] Office/outpat ient Visit, [facility], [address], [place], [place], [id number], [place] tel:[phone] [facility] No Information Dec-1 6-200 8 Krishnasamy Pete. [address], [place], [address], [place]. tel:[phone] [facility], [address], [place], [place], [id number], [place] tel:[phone] [facility] No Information Sep-2 3-200 8 Krishnasamy Pete. [address] [facility] [address], [place], [place], [facility], [place]. tel:[phone] [facility], [address], [place], [place], [id number], [place] tel:[phone] [facility] No Information Sep-0 2-200 8 Krishnasamy Pete. [address] [facility] [address], [address], [place]. tel:[phone] [facility], [address], [place], [place], [id number], [place] tel:[phone] [facility] No Information Aug-1 1-200 8 Krishnasamy Pete. [address] [facility] [address], [address], [place]. tel:[phone] [facility], [address], [place], [place], [id number], [place] tel:[phone] [facility] No Information Aug-0 1-200 8 Krishnasamy Pete. [address], [place], [address], [place]. tel:[phone] [facility], [address], [place], [place], [id number], [place] tel:[phone] [facility] No Information 1200 8 Krishnasamy Pete. [address] [place] [address] [address], [place], [facility], [place]. tel:[phone] [facility], [address], [place], [place], [id number], [place] tel:[phone] [facility] No Information 200 8 Krishnasamy Pete. [address] [place] [address], [facility], [place]. tel:[phone] Referring Provider: Pete gooden, [address] [place] [address], [facility]. tel:[phone] [facility], [address] [facility] [address], [place], [place], [id number], [place] tel:[phone] [facility] No Information 7 Chaymandie Moncada. [address] [facility], [address], [place], [place], [id number], [place]. tel:[phone] Family History Family Member Type Diagnosis Age At Onset No Information Payers Payer name Insurance type Covered alliance party ID Authoriza tion(s) [place] [id number] [place] [id number] Social History Type Description Quantity Date Captured [...]
--- OUTSIDE RECORDS SUMMARY | 2025-04-12 21:53 | XMS_ITS | Data Portability ---
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 Phone LUIS ANGEL DELGADO Primary Care Provider Unavailabl e Assessment Encounter Date Assessment Date Assessment LastModified by Organization Details LastModified Time 01/06/2024 01/06/2024 EKG machine nonfunction cardiology referral for palpitations blood work for hyperlipidemia continue medications for medical problems all questions have been answered management of her problems lipid discussed as well follow-up with me in 4 months obtain old records [email or web address] Not available 02/04/2024 08:41:06 05/03/2024 05/03/2024 discussed problems and assessment and plan they have been stable we will continue current medical management all questions answered she will see me back in 4 months [email or web address] Not available 05/05/2024 22:55:04 08/30/2024 08/30/2024 We will continue current therapy high healthy lifestyle care instructions blood work order diagnosis discussed all questions answered follow up 4 months [email or web address] Not available 09/03/2024 21:10:22 01/18/2025 01/18/2025 Continue current therapy healthy lifestyle care instructions. Also vestibular therapy overall doing fine her back seems to be in a stable place follow up with me in 4 months Not available 01/22/2025 13:27:24 02/02/2025 02/02/2025 Keflex for her cellulitis for her periorbital contusion that should resolve as well as the abrasion should as well she will keep her regular appointment with me if she gets worse she will let me know if other issues arise she will let me know by phone next week with an update if she gets worse and has concerning symptoms over the weekend she can go back to the ER. Records from hospital reviewed [email or web address] Not available 02/03/2025 22:05:32 Plan of Treatment Reminders Order Date Submit Date Provider Last Modified By Organization Details Last Modified Time Details Appointments ANY 15 2024 10:30A M Luis Angel Delgado MD Not available Not available Not available Lab CBC w/ auto diff 2024 025 [facility], [address], [place], [address], 01/19/2025 09:10:16 CMP, serum or plasma 2024 025 [facility], [address], [place], [address], 01/19/2025 09:10:14 lipid panel, serum 2024 025 [facility], [address], [place], [address], 01/19/2025 09:10:13 lipid panel, serum 2023 024 [facility], [address], [place], [address], 08/31/2024 08:31:10 CBC w/ auto diff 2023 024 [facility], [address], [place], [address], 08/31/2024 08:31:13 CMP, serum or plasma 2023 024 [facility], [address], [place], [address], 08/31/2024 08:31:11 CBC w/ auto diff 2023 024 [facility], [address], [place], [address], 01/28/2024 08:29:40 TSH, ultra-sen sitive, serum 2023 024 [facility], [address], [place], [address], 01/28/2024 08:29:39 unlisted lab - T4, free 2023 024 [facility], [address], [place], [address], 01/28/2024 08:29:38 T3, free, serum or plasma 2023 024 [facility], [address], [place], [address], 01/28/2024 08:29:41 lipid panel, serum 2023 024 [facility], [address], [place], [address], 01/28/2024 08:29:37 CMP, serum or plasma 2023 024 [facility], [address], [place], [address], 01/28/2024 08:29:39 Referral vestibula r therapy referral 2024 025 [facility], [address], [place], [address], 02/13/2025 22:10:17 cardiolog ist referral 2023 024 [facility], [address], [address], [place], [address], 02/28/2025 14:03:53 Procedures None recorded. Surgeries None recorded. Imaging None recorded. Medication Orders cephalexi n 500 mg tablet 2024 025 [email or web address] [id number], [address], [place], [place], [id number], 02/02/2025 13:49:22 halobetas ol propionat e 0.05 % topical cream 2024 025 [email or web address] [facility] #[id number], [address], [place], [place], [id number], 01/18/2025 16:10:41 Patient TargetsNo targets recorded. 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 Referring Physician: Luis Angel Delgado, Internal Medicine, Encounter Date: 01/06/2024 Vestibular Therapy Referral for Vertigo Referring Physician: Luis Angel Delgado, Internal Medicine, Encounter Date: 01/18/2025 Results Created Date Observation Date Name Description Value Unit Range Abnormal Flag Note LastModifiedBy Organization Detail LastModifiedTime 01/27/2001/28/2024 LIPID PANEL cholesterol, total 156 mg/dL 100-19 9 Not Available [facility] ([facility]) [address] [facility], [place], [address], 01/28/2024 08:29:37 01/27/20 24 01/28/2024 LIPID PANEL triglyceride s 380 mg/dL 0-149 above high normal Not Available [facility] ([facility]) [address] [facility], [place], [address], 01/28/2024 08:29:37 01/27/20 24 01/28/2024 LIPID PANEL HDL cholesterol 43 mg/dL >39 Not Available [facility] ([facility]) [address] [place], [address], 01/28/2024 08:29:37 01/27/20 24 01/28/2024 LIPID PANEL VLDL cholesterol lo 58 mg/dL 5-40 above high normal Not Available [facility] ([facility]) [address] [place], [address], 01/28/2024 08:29:37 01/27/20 24 01/28/2024 LIPID PANEL LDL chol calc ([facility]) 55 mg/dL 0-99 Not Available [facility] ([facility]) [address] [place], [address], 01/28/2024 08:29:37 01/27/20 24 01/28/2024 T4, FREE T4,free(dire ct) 0.98 NG/dL 0.82-1 .77 Not Available [facility] ([facility]) [address] [place], [address], 01/28/2024 08:29:38 01/27/20 24 01/28/2024 COMP. METAB OLIC PANEL (14) glucose 74 mg/dL 70-99 Not Available [facility] ([facility]) [address] [place], [address], 01/28/2024 08:29:39 01/27/20 24 01/28/2024 COMP. METAB OLIC PANEL (14) BUN 16 mg/dL 8-27 Not Available [facility] ([facility]) [address] [place], [address], 01/28/2024 08:29:39 01/27/20 24 01/28/2024 COMP. METAB OLIC PANEL (14) creatinine 0.68 mg/dL 0.57-1 .00 Not Available [facility] ([facility]) [address] [place], [address], 01/28/2024 08:29:39 01/27/20 24 01/28/2024 COMP. METAB OLIC PANEL (14) eGFR 87 mL/mi n/1.7 3 >59 Not Available [facility] ([facility]) [address], [place], [address], 01/28/2024 08:29:39 01/27/20 24 01/28/2024 COMP. METAB OLIC PANEL (14) BUN/creatini ne ratio 24 12-28 Not Available [facility] ([facility]) [address] [facility], [place], [address], 01/28/2024 08:29:39 01/27/20 24 01/28/2024 COMP. METAB OLIC PANEL (14) sodium 140 mmol/ L 134-14 4 Not Available [facility] ([facility]) [address] [facility], [place], [address], 01/28/2024 08:29:39 01/27/20 24 01/28/2024 COMP. METAB OLIC PANEL (14) potassium 4.4 mmol/ L 3.5-5. 2 Not Available [facility] ([facility]) [address] [facility], [place], [address], 01/28/2024 08:29:39 01/27/20 24 01/28/2024 COMP. METAB OLIC PANEL (14) chloride 104 mmol/ L 96-106 Not Available [facility] ([facility]) [address] [facility], [place], [address], 01/28/2024 08:29:39 01/27/20 24 01/28/2024 COMP. METAB OLIC PANEL (14) carbon dioxide, total 23 mmol/ L 20-29 Not Available [facility] ([facility]) [address] [facility], [place], [address], 01/28/2024 08:29:39 01/27/20 24 01/28/2024 COMP. METAB OLIC PANEL (14) calcium 9.1 mg/dL 8.7-10 .3 Not Available [facility] ([facility]) [address] [facility], [place], [address], 01/28/2024 08:29:39 01/27/20 24 01/28/2024 COMP. METAB OLIC PANEL (14) protein, total 6.6 g/dL 6.0-8. 5 Not Available [facility] ([facility]) [address] [facility], [place], [address], 01/28/2024 08:29:39 01/27/20 24 01/28/2024 COMP. METAB OLIC PANEL (14) albumin 4.1 g/dL 3.7-4. 7 Not Available [facility] ([facility]) [address] [facility], [place], [address], 01/28/2024 08:29:39 01/27/20 24 01/28/2024 COMP. METAB OLIC PANEL (14) globulin, total 2.5 g/dL 1.5-4. 5 Not Available [facility] ([facility]) [address] [facility], [place], [address], 01/28/2024 08:29:39 01/27/20 24 01/28/2024 COMP. METAB OLIC PANEL (14) A/G ratio 1.6 1.2-2. 2 Not Available [facility] ([facility]) [address] [facility], [place], [address], 01/28/2024 08:29:39 01/27/20 24 01/28/2024 COMP. METAB OLIC PANEL (14) bilirubin, total 0.3 mg/dL 0.0-1. 2 Not Available [facility] ([facility]) [address] [facility], [place], [address], 01/28/2024 08:29:39 01/27/20 24 01/28/2024 COMP. METAB OLIC PANEL (14) alkaline phosphatase 49 IU/L 44-121 Not Available [facility] ([facility]) [address] [place], [address], 01/28/2024 08:29:39 01/27/20 24 01/28/2024 COMP. METAB OLIC PANEL (14) AST (SGOT) 29 IU/L 0-40 Not Available [facility] ([facility]) [address] [place], [address], 01/28/2024 08:29:39 01/27/20 24 01/28/2024 COMP. METAB OLIC PANEL (14) ALT (SGPT) 31 IU/L 0-32 Not Available [facility] ([facility]) [address] [facility], [place], [address], 01/28/2024 08:29:39 01/27/20 24 01/28/2024 TSH TSH 3.310 uIU/m L 0.450- 4.500 Not Available [facility] ([facility]) [address] [place], [address], 01/28/2024 08:29:39 01/27/20 24 01/28/2024 CBC WITH DIFFE RENTI AL/PL ATELE T WBC 7.8 x10e3 /uL 3.4-10 .8 Not Available [facility] ([facility]) [address] [place], [address], 01/28/2024 08:29:40 01/27/20 24 01/28/2024 CBC WITH DIFFE RENTI AL/PL ATELE T RBC 4.41 x10e6 /uL 3.77-5 .28 Not Available [facility] ([facility]) [address] [place], [address], 01/28/2024 08:29:40 01/27/20 24 01/28/2024 CBC WITH DIFFE RENTI AL/PL ATELE T hemoglobin 13.9 g/dL 11.1-1 5.9 Not Available [facility] ([facility]) [address] [facility], [place], [address], 01/28/2024 08:29:40 01/27/20 24 01/28/2024 CBC WITH DIFFE RENTI AL/PL ATELE T hematocrit 41.9 % 34.0-4 6.6 Not Available [facility] ([facility]) [address] [facility], [place], [address], 01/28/2024 08:29:40 01/27/2001/28/2024 CBC WITH DIFFE RENTI AL/PL ATELE T MCV 95 fL 79-97 Not Available [facility] ([facility]) [address] [facility], [place], [address], 01/28/2024 08:29:40 01/27/2001/28/2024 CBC WITH DIFFE RENTI AL/PL ATELE T MCH 31.5 pg 26.6-3 3.0 Not Available [facility] ([facility]) [address] [facility], [place], [address], 01/28/2024 08:29:40 01/27/2001/28/2024 CBC WITH DIFFE RENTI AL/PL ATELE T MCHC 33.2 g/dL 31.5-3 5.7 Not Available [facility] ([facility]) [address] [facility], [place], [address], 01/28/2024 08:29:40 01/27/2001/28/2024 CBC WITH DIFFE RENTI AL/PL ATELE T RDW 13.0 % 11.7-1 5.4 Not Available [facility] ([facility]) [address] [place], [address], 01/28/2024 08:29:40 01/27/20 24 01/28/2024 CBC WITH DIFFE RENTI AL/PL ATELE T platelets 244 x10e3 /uL 150-45 0 Not Available [facility] ([facility]) [address] [facility], [place], [address], 01/28/2024 08:29:40 01/27/20 24 01/28/2024 CBC WITH DIFFE RENTI AL/PL ATELE T neutrophils 47 % notest ab. Not Available [facility] ([facility]) [address] [facility], [place], [address], 01/28/2024 08:29:40 01/27/20 24 01/28/2024 CBC WITH DIFFE RENTI AL/PL ATELE T lymphs 34 % notest ab. Not Available [facility] ([facility]) [address] [facility], [place], [address], 01/28/2024 08:29:40 01/27/20 24 01/28/2024 CBC WITH DIFFE RENTI AL/PL ATELE T monocytes 13 % notest ab. Not Available [facility] ([facility]) [address] [facility], [place], [address], 01/28/2024 08:29:40 01/27/20 24 01/28/2024 CBC WITH DIFFE RENTI AL/PL ATELE T eos 5 % notest ab. Not Available [facility] ([facility]) [address] [facility], [place], [address], 01/28/2024 08:29:40 01/27/20 24 01/28/2024 CBC WITH DIFFE RENTI AL/PL ATELE T basos 1 % notest ab. Not Available [facility] ([facility]) [address] [facility], [place], [address], 01/28/2024 08:29:40 01/27/20 24 01/28/2024 CBC WITH DIFFE RENTI AL/PL ATELE T neutrophils (absolute) 3.7 x10e3 /uL 1.4-7. 0 Not Available [facility] ([facility]) [address] [facility], [place], [address], 01/28/2024 08:29:40 01/27/20 24 01/28/2024 CBC WITH DIFFE RENTI AL/PL ATELE T lymphs (absolute) 2.7 x10e3 /uL 0.7-3. 1 Not Available [facility] ([facility]) [address] [facility], [place], [address], 01/28/2024 08:29:40 01/27/20 24 01/28/2024 CBC WITH DIFFE RENTI AL/PL ATELE T monocytes(ab solute) 1.0 x10e3 /uL 0.1-0. 9 above high normal Not Available [facility] ([facility]) [address] [facility], [place], [address], 01/28/2024 08:29:40 01/27/20 24 01/28/2024 CBC WITH DIFFE RENTI AL/PL ATELE T eos (absolute) 0.4 x10e3 /uL 0.0-0. 4 Not Available [facility] ([facility]) [address] [facility], [place], [address], 01/28/2024 08:29:40 01/27/20 24 01/28/2024 CBC WITH DIFFE RENTI AL/PL ATELE T baso (absolute) 0.1 x10e3 /uL 0.0-0. 2 Not Available [facility] ([facility]) [address] [facility], [place], [address], 01/28/2024 08:29:40 01/27/20 24 01/28/2024 CBC WITH DIFFE RENTI AL/PL ATELE T immature granulocytes 0 % notest ab. Not Available [facility] ([facility]) [address] [facility], [place], [address], 01/28/2024 08:29:40 01/27/20 24 01/28/2024 CBC WITH DIFFE RENTI AL/PL ATELE T immature grans (abs) 0.0 x10e3 /uL 0.0-0. 1 Not Available [facility] ([facility]) [address] [facility] [place], [address], 01/28/2024 08:29:40 01/27/2001/28/2024 TRIIO DOTHY CHENG E (T3), FREE triiodothyro nine (T3), free 2.6 pg/mL 2.0-4. 4 Not Available [facility] ([facility]) [address] [place], [address], 01/28/2024 08:29:41 08/30/2008/31/2024 LIPID PANEL cholesterol, total 169 mg/dL 100-19 9 Not Available [facility] ([facility]) [address] [place], [address], 08/31/2024 08:31:10 08/30/2008/31/2024 LIPID PANEL triglyceride s 317 mg/dL 0-149 above high normal Not Available [facility] ([facility]) [address] [place], [address], 08/31/2024 08:31:10 08/30/2008/31/2024 LIPID PANEL HDL cholesterol 47 mg/dL >39 Not Available [facility] ([facility]) [address] [place], [address], 08/31/2024 08:31:10 08/30/2008/31/2024 LIPID PANEL VLDL cholesterol lo 50 mg/dL 5-40 above high normal Not Available [facility] ([facility]) [address] [place], [address], 08/31/2024 08:31:10 08/30/2008/31/2024 LIPID PANEL LDL chol calc ([facility]) 72 mg/dL 0-99 Not Available [facility] ([facility]) [address] [place], [address], 08/31/2024 08:31:10 08/30/20 24 08/31/2024 COMP. METAB OLIC PANEL (14) glucose 94 mg/dL 70-99 Not Available [facility] ([facility]) [address] [place], [address], 08/31/2024 08:31:11 08/30/20 24 08/31/2024 COMP. METAB OLIC PANEL (14) BUN 17 mg/dL 8-27 Not Available [facility] ([facility]) [address] [place], [address], 08/31/2024 08:31:11 08/30/20 24 08/31/2024 COMP. METAB OLIC PANEL (14) creatinine 0.65 mg/dL 0.57-1 .00 Not Available [facility] ([facility]) [address] [place], [address], 08/31/2024 08:31:11 08/30/20 24 08/31/2024 COMP. METAB OLIC PANEL (14) eGFR 88 mL/mi n/1.7 3 >59 Not Available [facility] ([facility]) [address] [place], [address], 08/31/2024 08:31:11 08/30/20 24 08/31/2024 COMP. METAB OLIC PANEL (14) BUN/creatini ne ratio 26 12-28 Not Available [facility] ([facility]) [address] [place], [address], 08/31/2024 08:31:11 08/30/20 24 08/31/2024 COMP. METAB OLIC PANEL (14) sodium 138 mmol/ L 134-14 4 Not Available [facility] ([facility]) [address] [place], [address], 08/31/2024 08:31:11 08/30/20 24 08/31/2024 COMP. METAB OLIC PANEL (14) potassium 4.7 mmol/ L 3.5-5. 2 Not Available [facility] ([facility]) [address] [place], [address], 08/31/2024 08:31:11 08/30/20 24 08/31/2024 COMP. METAB OLIC PANEL (14) chloride 102 mmol/ L 96-106 Not Available [facility] ([facility]) [address] [place], [address], 08/31/2024 08:31:11 08/30/20 24 08/31/2024 COMP. METAB OLIC PANEL (14) carbon dioxide, total 24 mmol/ L 20-29 Not Available [facility] ([facility]) [address] [place], [address], 08/31/2024 08:31:11 08/30/20 24 08/31/2024 COMP. METAB OLIC PANEL (14) calcium 9.5 mg/dL 8.7-10 .3 Not Available [facility] ([facility]) [address] [place], [address], 08/31/2024 08:31:11 08/30/20 24 08/31/2024 COMP. METAB OLIC PANEL (14) protein, total 7.1 g/dL 6.0-8. 5 Not Available [facility] ([facility]) [address] [place], [address], 08/31/2024 08:31:11 08/30/20 24 08/31/2024 COMP. METAB OLIC PANEL (14) albumin 4.1 g/dL 3.7-4. 7 Not Available [facility] ([facility]) [address] [place], [address], 08/31/2024 08:31:11 08/30/20 24 08/31/2024 COMP. METAB OLIC PANEL (14) globulin, total 3.0 g/dL 1.5-4. 5 Not Available [facility] ([facility]) [address] [facility] [place], [address], 08/31/2024 08:31:11 08/30/20 24 08/31/2024 COMP. METAB OLIC PANEL (14) bilirubin, total <0.2 mg/dL 0.0-1. 2 Not Available [facility] ([facility]) [address] [facility], [place], [address], 08/31/2024 08:31:11 08/30/20 24 08/31/2024 COMP. METAB OLIC PANEL (14) alkaline phosphatase 54 IU/L 44-121 Not Available [facility] ([facility]) [address] [facility], [place], [address], 08/31/2024 08:31:11 08/30/20 24 08/31/2024 COMP. METAB OLIC PANEL (14) AST (SGOT) 25 IU/L 0-40 Not Available [facility] ([facility]) [address] [facility], [place], [address], 08/31/2024 08:31:11 08/30/20 24 08/31/2024 COMP. METAB OLIC PANEL (14) ALT (SGPT) 28 IU/L 0-32 Not Available [facility] ([facility]) [address] [facility], [place], [address], 08/31/2024 08:31:11 08/30/20 24 08/31/2024 CBC WITH DIFFE RENTI AL/PL ATELE T WBC 8.4 x10e3 /uL 3.4-10 .8 Eff ectiv e Decem kirby 2023 profi le [id number] 5 WBC will be made* * non-o rdera ble as a stand -ronni e order code. Not Available [facility] ([facility]) [address] [place], [address], 08/31/2024 08:31:12 08/30/20 24 08/31/2024 CBC WITH DIFFE RENTI AL/PL ATELE T RBC 4.52 x10e6 /uL 3.77-5 .28 Not Available [facility] ([facility]) [address] [facility], [place], [address], 08/31/2024 08:31:12 08/30/20 24 08/31/2024 CBC WITH DIFFE RENTI AL/PL ATELE T hemoglobin 14.7 g/dL 11.1-1 5.9 Not Available [facility] ([facility]) [address] [facility], [place], [address], 08/31/2024 08:31:12 08/30/20 24 08/31/2024 CBC WITH DIFFE RENTI AL/PL ATELE T hematocrit 43.4 % 34.0-4 6.6 Not Available [facility] ([facility]) [address] [facility], [place], [address], 08/31/2024 08:31:12 08/30/20 24 08/31/2024 CBC WITH DIFFE RENTI AL/PL ATELE T MCV 96 fL 79-97 Not Available [facility] ([facility]) [address] [place], [address], 08/31/2024 08:31:12 08/30/20 24 08/31/2024 CBC WITH DIFFE RENTI AL/PL ATELE T MCH 32.5 pg 26.6-3 3.0 Not Available [facility] ([facility]) [address] [facility], [place], [address], 08/31/2024 08:31:12 08/30/20 24 08/31/2024 CBC WITH DIFFE RENTI AL/PL ATELE T MCHC 33.9 g/dL 31.5-3 5.7 Not Available [facility] ([facility]) [address] [place], [address], 08/31/2024 08:31:12 08/30/20 24 08/31/2024 CBC WITH DIFFE RENTI AL/PL ATELE T RDW 12.7 % 11.7-1 5.4 Not Available [facility] ([facility]) [address] [facility], [place], [address], 08/31/2024 08:31:12 08/30/20 24 08/31/2024 CBC WITH DIFFE RENTI AL/PL ATELE T platelets 274 x10e3 /uL 150-45 0 Not Available [facility] ([facility]) [address] [facility], [place], [address], 08/31/2024 08:31:12 08/30/20 24 08/31/2024 CBC WITH DIFFE RENTI AL/PL ATELE T neutrophils 48 % notest ab. Not Available [facility] ([facility]) [address] [facility], [place], [address], 08/31/2024 08:31:12 08/30/20 24 08/31/2024 CBC WITH DIFFE RENTI AL/PL ATELE T lymphs 33 % notest ab. Not Available [facility] ([facility]) [address] [facility], [place], [address], 08/31/2024 08:31:12 08/30/20 24 08/31/2024 CBC WITH DIFFE RENTI AL/PL ATELE T monocytes 13 % notest ab. Not Available [facility] ([facility]) [address] [facility], [place], [address], 08/31/2024 08:31:12 08/30/20 24 08/31/2024 CBC WITH DIFFE RENTI AL/PL ATELE T eos 5 % notest ab. Not Available [facility] ([facility]) [address] [place], [address], 08/31/2024 08:31:12 08/30/20 24 08/31/2024 CBC WITH DIFFE RENTI AL/PL ATELE T basos 1 % notest ab. Not Available [facility] ([facility]) [address] [place], [address], 08/31/2024 08:31:12 08/30/20 24 08/31/2024 CBC WITH DIFFE RENTI AL/PL ATELE T neutrophils (absolute) 4.1 x10e3 /uL 1.4-7. 0 Not Available [facility] ([facility]) [address] [facility], [place], [address], 08/31/2024 08:31:12 08/30/20 24 08/31/2024 CBC WITH DIFFE RENTI AL/PL ATELE T lymphs (absolute) 2.7 x10e3 /uL 0.7-3. 1 Not Available [facility] ([facility]) [address] [facility], [place], [address], 08/31/2024 08:31:12 08/30/20 24 08/31/2024 CBC WITH DIFFE RENTI AL/PL ATELE T monocytes(ab solute) 1.1 x10e3 /uL 0.1-0. 9 above high normal Not Available [facility] ([facility]) [address] [facility], [place], [address], 08/31/2024 08:31:12 08/30/20 24 08/31/2024 CBC WITH DIFFE RENTI AL/PL ATELE T eos (absolute) 0.4 x10e3 /uL 0.0-0. 4 Not Available [facility] ([facility]) [address] [facility], [place], [address], 08/31/2024 08:31:12 08/30/20 24 08/31/2024 CBC WITH DIFFE RENTI AL/PL ATELE T baso (absolute) 0.1 x10e3 /uL 0.0-0. 2 Not Available [facility] ([facility]) [address] [facility], [place], [address], 08/31/2024 08:31:12 08/30/20 24 08/31/2024 CBC WITH DIFFE RENTI AL/PL ATELE T immature granulocytes 0 % notest ab. Not Available [facility] ([facility]) [address] [facility], [place], [address], 08/31/2024 08:31:12 08/30/20 24 08/31/2024 CBC WITH DIFFE RENTI AL/PL ATELE T immature grans (abs) 0.0 x10e3 /uL 0.0-0. 1 Not Available [facility] ([facility]) [address] [facility], [place], [address], 08/31/2024 08:31:12 01/19/20 25 01/19/2025 LIPID PANEL cholesterol, total 157 mg/dL 100-19 9 Not Available [facility] ([facility]) [address] [facility], [place], [address], 01/19/2025 09:10:13 01/19/20 25 01/19/2025 LIPID PANEL triglyceride s 295 mg/dL 0-149 above high normal Not Available [facility] ([facility]) [address] [place], [address], 01/19/2025 09:10:13 01/19/20 25 01/19/2025 LIPID PANEL HDL cholesterol 45 mg/dL >39 Not Available [facility] ([facility]) [address] [place], [address], 01/19/2025 09:10:13 01/19/20 25 01/19/2025 LIPID PANEL VLDL cholesterol lo 47 mg/dL 5-40 above high normal Not Available [facility] ([facility]) [address] [place], [address], 01/19/2025 09:10:13 01/19/20 25 01/19/2025 LIPID PANEL LDL chol calc ([facility]) 65 mg/dL 0-99 Not Available [facility] ([facility]) [address] [place], [address], 01/19/2025 09:10:13 01/19/20 25 01/19/2025 COMP. METAB OLIC PANEL (14) glucose 79 mg/dL 70-99 Not Available [facility] ([facility]) [address] [place], [address], 01/19/2025 09:10:14 01/19/20 25 01/19/2025 COMP. METAB OLIC PANEL (14) BUN 17 mg/dL 8-27 Not Available [facility] ([facility]) [address] [place], [address], 01/19/2025 09:10:14 01/19/20 25 01/19/2025 COMP. METAB OLIC PANEL (14) creatinine 0.70 mg/dL 0.57-1 .00 Not Available [facility] ([facility]) [address] [place], [address], 01/19/2025 09:10:14 01/19/20 25 01/19/2025 COMP. METAB OLIC PANEL (14) eGFR 86 mL/mi n/1.7 3 >59 Not Available [facility] ([facility]) [address] [place], [address], 01/19/2025 09:10:14 01/19/20 25 01/19/2025 COMP. METAB OLIC PANEL (14) BUN/creatini ne ratio 24 12-28 Not Available [facility] ([facility]) [address] [place], [address], 01/19/2025 09:10:14 01/19/20 25 01/19/2025 COMP. METAB OLIC PANEL (14) sodium 139 mmol/ L 134-14 4 Not Available [facility] ([facility]) [address] [place], [address], 01/19/2025 09:10:14 01/19/20 25 01/19/2025 COMP. METAB OLIC PANEL (14) potassium 4.8 mmol/ L 3.5-5. 2 Not Available [facility] ([facility]) [address] [place], [address], 01/19/2025 09:10:14 01/19/20 25 01/19/2025 COMP. METAB OLIC PANEL (14) chloride 102 mmol/ L 96-106 Not Available [facility] ([facility]) [address] [place], [address], 01/19/2025 09:10:14 01/19/20 25 01/19/2025 COMP. METAB OLIC PANEL (14) carbon dioxide, total 23 mmol/ L 20-29 Not Available [facility] ([facility]) [address] [place], [address], 01/19/2025 09:10:14 01/19/20 25 01/19/2025 COMP. METAB OLIC PANEL (14) calcium 9.8 mg/dL 8.7-10 .3 Not Available [facility] ([facility]) [address] [place], [address], 01/19/2025 09:10:14 01/19/20 25 01/19/2025 COMP. METAB OLIC PANEL (14) protein, total 7.1 g/dL 6.0-8. 5 Not Available [facility] ([facility]) [address] [place], [address], 01/19/2025 09:10:14 01/19/20 25 01/19/2025 COMP. METAB OLIC PANEL (14) albumin 4.3 g/dL 3.7-4. 7 Not Available [facility] ([facility]) [address] [facility] [place], [address], 01/19/2025 09:10:14 01/19/20 25 01/19/2025 COMP. METAB OLIC PANEL (14) globulin, total 2.8 g/dL 1.5-4. 5 Not Available [facility] ([facility]) [address] [place], [address], 01/19/2025 09:10:14 01/19/20 25 01/19/2025 COMP. METAB OLIC PANEL (14) bilirubin, total 0.3 mg/dL 0.0-1. 2 Not Available [facility] ([facility]) [address] [place], [address], 01/19/2025 09:10:14 01/19/20 25 01/19/2025 COMP. METAB OLIC PANEL (14) alkaline phosphatase 46 IU/L 44-121 Not Available [facility] ([facility]) [address] [place], [address], 01/19/2025 09:10:14 01/19/20 25 01/19/2025 COMP. METAB OLIC PANEL (14) AST (SGOT) 31 IU/L 0-40 Not Available [facility] ([facility]) [address] [facility], [place], [address], 01/19/2025 09:10:14 01/19/20 25 01/19/2025 COMP. METAB OLIC PANEL (14) ALT (SGPT) 35 IU/L 0-32 above high normal Not Available [facility] ([facility]) [address] [place], [address], 01/19/2025 09:10:14 01/19/20 25 01/19/2025 CBC WITH DIFFE RENTI AL/PL ATELE T WBC 8.0 x10e3 /uL 3.4-10 .8 Not Available [facility] ([facility]) [address] [place], [address], 01/19/2025 09:10:16 01/19/20 25 01/19/2025 CBC WITH DIFFE RENTI AL/PL ATELE T RBC 4.45 x10e6 /uL 3.77-5 .28 Not Available [facility] ([facility]) [address] [place], [address], 01/19/2025 09:10:16 01/19/2001/19/2025 CBC WITH DIFFE RENTI AL/PL ATELE T hemoglobin 14.3 g/dL 11.1-1 5.9 Not Available [facility] ([facility]) [address] [place], [address], 01/19/2025 09:10:16 01/19/2001/19/2025 CBC WITH DIFFE RENTI AL/PL ATELE T hematocrit 43.7 % 34.0-4 6.6 Not Available [facility] ([facility]) [address] [place], [address], 01/19/2025 09:10:16 01/19/20 25 01/19/2025 CBC WITH DIFFE RENTI AL/PL ATELE T MCV 98 fL 79-97 above high normal Not Available [facility] ([facility]) [address] [place], [address], 01/19/2025 09:10:16 01/19/2001/19/2025 CBC WITH DIFFE RENTI AL/PL ATELE T MCH 32.1 pg 26.6-3 3.0 Not Available [facility] ([facility]) [address] [place], [address], 01/19/2025 09:10:16 01/19/2001/19/2025 CBC WITH DIFFE RENTI AL/PL ATELE T MCHC 32.7 g/dL 31.5-3 5.7 Not Available [facility] ([facility]) [address] [place], [address], 01/19/2025 09:10:16 01/19/20 25 01/19/2025 CBC WITH DIFFE RENTI AL/PL ATELE T RDW 13.0 % 11.7-1 5.4 Not Available [facility] ([facility]) [address] [place], [address], 01/19/2025 09:10:16 01/19/20 25 01/19/2025 CBC WITH DIFFE RENTI AL/PL ATELE T platelets 265 x10e3 /uL 150-45 0 Not Available [facility] ([facility]) [address] [facility], [place], [address], 01/19/2025 09:10:16 01/19/20 25 01/19/2025 CBC WITH DIFFE RENTI AL/PL ATELE T neutrophils 46 % notest ab. Not Available [facility] ([facility]) [address] [facility], [place], [address], 01/19/2025 09:10:16 01/19/20 25 01/19/2025 CBC WITH DIFFE RENTI AL/PL ATELE T lymphs 33 % notest ab. Not Available [facility] ([facility]) [address] [facility], [place], [address], 01/19/2025 09:10:16 01/19/20 25 01/19/2025 CBC WITH DIFFE RENTI AL/PL ATELE T monocytes 15 % notest ab. Not Available [facility] ([facility]) [address] [facility], [place], [address], 01/19/2025 09:10:16 01/19/20 25 01/19/2025 CBC WITH DIFFE RENTI AL/PL ATELE T eos 5 % notest ab. Not Available [facility] ([facility]) [address] [facility], [place], [address], 01/19/2025 09:10:16 01/19/20 25 01/19/2025 CBC WITH DIFFE RENTI AL/PL ATELE T basos 1 % notest ab. Not Available [facility] ([facility]) [address] [facility], [place], [address], 01/19/2025 09:10:16 01/19/20 25 01/19/2025 CBC WITH DIFFE RENTI AL/PL ATELE T neutrophils (absolute) 3.7 x10e3 /uL 1.4-7. 0 Not Available [facility] ([facility]) [address] [place], [address], 01/19/2025 09:10:16 01/19/20 25 01/19/2025 CBC WITH DIFFE RENTI AL/PL ATELE T lymphs (absolute) 2.6 x10e3 /uL 0.7-3. 1 Not Available [facility] ([facility]) [address] [place], [address], 01/19/2025 09:10:16 01/19/20 25 01/19/2025 CBC WITH DIFFE RENTI AL/PL ATELE T monocytes(ab solute) 1.2 x10e3 /uL 0.1-0. 9 above high normal Not Available [facility] ([facility]) [address] [place], [address], 01/19/2025 09:10:16 01/19/20 25 01/19/2025 CBC WITH DIFFE RENTI AL/PL ATELE T eos (absolute) 0.4 x10e3 /uL 0.0-0. 4 Not Available [facility] ([facility]) [address] [place], [address], 01/19/2025 09:10:16 01/19/20 25 01/19/2025 CBC WITH DIFFE RENTI AL/PL ATELE T baso (absolute) 0.1 x10e3 /uL 0.0-0. 2 Not Available [facility] ([facility]) [address] [place], [address], 01/19/2025 09:10:16 01/19/20 25 01/19/2025 CBC WITH DIFFE RENTI AL/PL ATELE T immature granulocytes 0 % notest ab. Not Available [facility] ([facility]) [address] [place], [address], 01/19/2025 09:10:16 01/19/20 25 01/19/2025 CBC WITH DIFFE RENTI AL/PL ATELE T immature morgan (abs) 0.0 x10e3 /uL 0.0-0. 1 Not Available [facility] ([facility]) [address] [facility], [place], [address], 01/19/2025 09:10:16 01/29/20 25 01/28/2025 CT, head, w/o contr ast No observ ation record ed. [address] [place], [address], 02/01/2025 23:37:10 01/29/20 25 01/28/2025 XR, hand No observ ation record ed. [address] [place], [address], 02/01/2025 23:37:10 01/29/20 25 01/28/2025 XR, wrist , 2 view No observ ation record ed. [address] [place], [address], 02/01/2025 23:37:10 02/15/20 25 01/28/2025 emerg ency dept. visit * No observ ation record ed. [address] [place], [address], 02/16/2025 23:11:49 Result Notes None recorded. Problems Name Problem SNOMED Code Status Onset Date Resolution Date Notes Provider Name and Address Organization Details Recorded Time Hyperlipidemi a 02831542 Active 2023 Luis Angel Delgado MD Attn: Accounting ,[address] [facility], [place], [address] , [facility] 22:54:14 Chronic headache disorder 173272548 Active 2023 Luis Angel Delgado MD Attn: Accounting ,[address] [facility], [place], [address] , [facility] - [facility] 4 22:54:16 Chronic low back pain 211161027 Active 2023 Luis Angel Delgado MD Attn: Accounting ,[address] [facility], [place], [address] , [facility] - [facility] 4 22:54:17 Essential hypertension 82535292 Active 2024 Julia Charles RN null, [place] - [facility] 5 11:12:29 Problem Notes None recorded. Procedures Surgical History Date Name Laterality Status Provider Name and Address Organization Details Recorded Time Back Surgery completed Kenneth Abreu MA [facility] 01/06/2024 15:58:59 Eye Surgery completed Kenneth Arbeu MA [facility] 01/06/2024 15:59:07 Joint Replacement completed Kenneth Abreu MA [facility] 01/06/2024 15:59:14 Total hysterectomy completed Kenneth Abreu MA [facility] 01/06/2024 15:59:28 Imaging Results None recorded. Procedure Notes None recorded. Medical Equipment None Reported. Allergies No known drug allergies Medications Name Sig Start Date Stop Date Status Note LastModified by Organization Details LastModified Time Prescription - Prior Authorizatio n Request active Not Available Not Available No t Available celecoxib 200 mg capsule TAKE 1 CAPSULE BY MOUTH EVERY DAY 2024 active Not Available Not Available Not Avai lable tizanidine 4 mg tablet TAKE 1 TABLET BY MOUTH TWICE DAILY NEEDED FOR BACK SPASM 2024 active Not Available Not Available Not Avai lable atenolol 100 mg tablet TAKE 1 TABLET BY MOUTH TWICE DAILY 2024 active Not Available Not Available Not Avai lable hydrocodone 5 mg-acetamino phen 325 mg tablet TAKE 1 TABLET BY MOUTH TWICE DAILY NEEDED active Not Available Not Available No t Available sumatriptan 50 mg tablet TAKE 1 TABLET BY MOUTH AT ONSET OF HEADACHE . MAY REPEAT IN 2 HOURS NEEDED 2024 active Not Available Not Available Not Avai lable amlodipine 5 mg tablet TAKE 1 TABLET BY MOUTH EVERY DAY active Not Available Not Available No t Available amitriptylin e 25 mg tablet TAKE 1 TABLET BY MOUTH EVERY DAY active Not Available Not Available No t Available cephalexin 500 mg tablet TAKE 1 TABLET BY MOUTH THREE TIMES DAILY FOR 5 DAYS active Not Available Not Available No t Available halobetasol propionate 0.05 % topical cream Apply to area daily 2024 active Not Available Not Available Not Avai lable rosuvastatin 20 mg tablet TAKE 1 TABLET BY MOUTH EVERY DAY 2024 active Not Available Not Available Not Avai lable nitrofuranto in monohydrate/ macrocrystal s 100 mg capsule TAKE 1 CAPSULE BY MOUTH TWICE DAILY 01/05 completed Not Available Not Available Not Available aspirin 81 mg capsule Take 1 capsule every day by oral route. active Not Available Not Available No t Available Paxlovid 300 mg (150 mg x 2)-100 mg tablets in a dose pack TAKE 3 TABLETS BY MOUTH TWICE DAILY FOR 5 DAYS 01/05 completed Not Available Not Available Not Available Vitals Date Recorded Body weight Body mass index (BMI) Body height Oxygen saturation Oxygen saturation in Arterial blood by Pulse oximetry Heart rate Systolic And Diastolic Provider Name and Address Organization Details Last Updated DateTime 4 40155.4 9 g 25.9 kg/m2 160.02 cm 96 % 96 % 60 /min 154/92 mm[Hg] Kenneth Abreu MA [facility] 4 16:04:46 Date Recorded Body height Body mass index (BMI) Body weight Heart rate Oxygen saturation Oxygen saturation in Arterial blood by Pulse oximetry Systolic And Diastolic Provider Name and Address Organization Details Last Updated DateTime 5 160.02 cm 27.4 kg/m2 98917.6 6 g 61 /min 97 % 97 % 120/64 mm[Hg] Lynsey Burgess MA [facility] 5 12:16:48 Date Recorded Body height Body mass index (BMI) Body weight Heart rate Oxygen saturation Oxygen saturation in Arterial blood by Pulse oximetry Systolic And Diastolic Provider Name and Address Organization Details Last Updated DateTime 5 160.02 cm 26 kg/m2 42231 g 84 /min 98 % 98 % 138/70 mm[Hg] Lynsey Burgess MA [facility] 5 11:31:44 Date Recorded Body height Body mass index (BMI) Body weight Heart rate Oxygen saturation Oxygen saturation in Arterial blood by Pulse oximetry Systolic And Diastolic Provider Name and Address Organization Details Last Updated DateTime 4 160.02 cm 26 kg/m2 95679.0 8 g 62 /min 97 % 97 % 138/70 mm[Hg] Lynsey Burgess [place] - [facility] 4 15:35:02 Date Recorded Body height Body mass index (BMI) Body weight Heart rate Oxygen saturation Oxygen saturation in Arterial blood by Pulse oximetry Systolic And Diastolic Provider Name and Address Organization Details Last Updated DateTime 4 160.02 cm 26.5 kg/m2 79178.1 4 g 87 /min 96 % 96 % 128/64 mm[Hg] Lynsey Burgess [place] - [facility] 4 12:05:19 Social History Question Answer Notes LastModified by [employer] Details LastModified Time Tobacco Smoking Status Never Smoker Kenneth Abreu MA [facility] 01/06/2024 15:58:04 Do You Have An Advance Directive? No Information not available 01/06/2024 Are You Blind Or Do You Have Difficulty Seeing? No Information not available 01/06/2024 What Is Your Level Of Caffeine Consumption? Moderate Information not available 01/06/2024 Are You Deaf Or Do You Have Serious Difficulty Hearing? Yes Information not available 01/06/2024 What Type Of Diet Are You Following? REGULAR Information not available 01/06/2024 What Was The Date Of Your Most Recent Tobacco Screening? 02/02/2025 [email or web address] Information not available 02/02/2025 What Is Your Relationship Status? Information not available 01/06/2024 Do You Have Smoke And Carbon Monoxide Detectors In Your Home? Yes Information not available 01/06/2024 Do You Use Sunscreen Routinely? Yes Information not available 01/06/2024 Has Tobacco Cessation Counseling Been Provided? No Information not available 01/06/2024 Sex: Female Functional Status Question Answer Note LastModified by [employer] Details LastModified Time Do you use any illicit or recreational drugs? No Information not available 01/06/2024 Do you or have you ever used any other forms of tobacco or nicotine? No Information not available 01/06/2024 What is your level of alcohol consumption? None Information not available 01/06/2024 Are you able to care for yourself? Yes Information n ot available 01/06/2024 What is your exercise level? Occasional Information not available 01/06/2024 Mental Status None recorded. Family History Relationship Description Onset Age of this Age Resolved Age Notes LastModified by Organization Details LastModified Time Mother Cerebrovascu lar accident [email or web address] Not available 0 01/06/2024 15:57:35 Mother Hypertensive disorder [email or web address] Not available 12/2023 15:57:44 Medical History No medical history recorded. Gynecological HistoryNo gynecological history recorded. Obstetrics History GPAL:G 0 P 0 0 0 0 Immunizations Vaccine Type Date Status Note Provider Nam e and Address Organization Details Recorded Time Influenza, high-dose, quadrivalent, PF 2 completed Lynsey Burgess, [place] null, [place] - [facility] 01/18/2025 12:17:10 Influenza, high-dose, quadrivalent, PF 3 completed Lynsey Jenifer, [place] [facility] 01/18/2025 12:17:10 Influenza, high-dose, quadrivalent, PF 1 completed Lynsey Burgess, [place] [facility] 01/18/2025 12:17:10 Influenza, high-dose, quadrivalent, PF 0 completed Lynsey Burg[place] [facility] 01/18/2025 12:17:10 COVID-19, mRNA, LNP-S, PF, 30 mcg/0.3 mL dose 1 completed Lynseyelmer Burgess, [place], [place] [facility] 01/18/2025 12:17:10 COVID-19 vaccine, vector-nr, rS-Ad26, PF, 0.5 mL 1 completed Lynsey Burgess, [place] [facility] 01/18/2025 12:17:10 COVID-19, mRNA, LNP-S, PF, 30 mcg/0.3 mL dose, diana-sucrose 2 completed Lynsey Jenifer, [place] [facility] 01/18/2025 12:17:10 COVID-19, mRNA, LNP-S, bivalent, PF, 30 mcg/0.3 mL dose 2 completed Lynsey Jenifer, [place] [facility] 01/18/2025 12:17:10 COVID-19, mRNA, LNP-S, PF, diana-sucrose, 30 mcg/0.3 mL 4 completed Lynsey Jenifer, [place], [place] [facility] 01/18/2025 12:17:10 COVID-19, mRNA, LNP-S, PF, diana-sucrose, 30 mcg/0.3 mL 3 completed Lynsey Jenifer, [place] [facility] 01/18/2025 12:17:10 pneumococcal polysaccharide PPV23 2 completed Lynsey Jenifer, [place] [facility] 01/18/2025 12:17:10 influenza, unspecified formulation 2 completed Lynsey Jenifer, [place] [facility] 01/18/2025 12:17:10 Pneumococcal conjugate PCV 13 6 completed Lynsey Jenifer, [place] [facility] 01/18/2025 12:17:10 zoster live 4 completed Lynsey Jenifer, [place] [facility] 01/18/2025 12:17:11 Influenza, high-dose, trivalent, PF 7 completed Lynsey Jenifer, [place] [facility] 01/18/2025 12:17:11 Influenza, high-dose, trivalent, PF 8 completed Lynsey Jenifer, [place] [facility] 01/18/2025 12:17:11 Influenza, high-dose, trivalent, PF 6 completed Lynsey Jen[place], [place] [facility] 01/18/2025 12:17:11 Influenza, split virus, trivalent, preservative 9 completed Lynsey Jenifer, [place] [facility] 01/18/2025 12:17:11 COVID-19, mRNA, LNP-S, PF, diana-sucrose, 30 mcg/0.3 mL 4 completed Lynsey [place] [facility] 01/18/2025 12:17:23 Influenza, high-dose, trivalent, PF 4 completed Lynsey Burg[place] [facility] 01/18/2025 12:17:23 Tdap 5 completed Luis Angel Delgado MD Attn: Accounting,[address] [facility], [place], [address], [place] [facility] 01/22/2025 13:26:17 Past Encounters Encounter ID Performer Location Encounter Start Date Encounter Closed Date Diagnosis/Indication Diagnosis SNOMED-CT Code Diagnosis ICD10 Code Diagnosis Note [id number] Luis Angel Delgado MD [facility] [address] [place] [address] 01/06/2024 15:23:15 01/06/2024 16:48:01 Hyperlipidemia 73977352 E78.5 Long-term drug therapy 816913361 Z79.899 Palpitations 70732257 R0 0.2 Chronic he adache disorder 529811967 G44.89 Chronic back pain 503435 002 G89.29 [id number] [facility] [address] [place] [address] 0 05/03/2024 15:00:52 05/03/2024 16:20:38 Overweight 466033880 E66.3 Hyperlipidemia 53796440 E78.5 Chronic he adache disorder 823365494 G44.89 Chronic low back pain 27 5988730 M54.50 [id number] Luis Angel Delgado MD [facility] (Adult Med) [address] [place] [address] 08/30/2024 11:47:31 08/30/2024 12:51:48 Overweight 842397237 E66.3 Essential hypertension 16090137 I10 Hyperlipidemia 22849118 E78.5 Chronic low back pain 27 8795975 M54.50 Chronic he adache disorder 749871645 G44.89 [id number] MD [facility] (Adult Med) [address] [place] [address] 01/18/2025 11:50:45 01/18/2025 12:45:42 Body mass index 25-29 - overweight 347810839 Z68.27 Overweight 410053344 E66 .3 Administra tion of diphtheria, pertussis, and tetanus vaccine 407267575 Z23 Chronic dermatitis 88746 007 L30.9 Hyperlipidemia 50652361 E78.5 Long-term drug therapy 795208100 Z79.899 Vertigo 527707433 R42 Chronic he adache disorder 222401082 G44.89 Chronic low back pain 27 7681542 M54.50 [id number] Luis Angel Delgado MD [facility] [address] [place] [address] 02/02/2025 11:16:22 02/02/2025 12:33:53 Overweight in adulthood with body mass index of 25 or more but less than 30 301131176 E66.3 Z68.26 Overweight 970352058 E66 .3 Cellulitis of hand 06980 005 L03.119 Right johnnie ocular contusion 9101249991 0712271 S05.11XA Abrasion o f skin of left hand 4069366880 5897916 S60.512A Health Concerns Section Related Observation LastModified by Organization Detai ls LastModified Time None Recorded Concern Status LastModified by Organization Details LastModified Time None Recorded Advance Directives Directive N: Payers Insurance Date Sequence Insurance Name Policy Number Policy Lee Covered Member ID Lee Member ID Guarantor Name 02/02/2025 [place] [facility] Juanis Acosta [id number] Juanis Acosta 02/02/2025 1 [place] Juanis Acosta [id number] Juanis Acosta 02/02/2025 2 [employer] SU[employer]AL - [employer] (MEDICARE SUPPLEMENT) Juanis Acosta [id number] Juanis Acosta Notes Date Note Type Note Provider Name and Address Organization Details Recorded Time 01/06/2024 text/html 84-year-old with history of dyslipidemia chronic headaches and chronic back pain comes in for evaluation of her medical problems dyslipidemia and headaches appear to be stable no symptoms referable to the head or back pains been doing about the same and she has been having some nonspecific palpitations with no other symptoms Luis Angel Delgado MD Attn: Accounting,[address] [facility], [place], [address], [facility] 02/04/2024 08:48:34 05/03/2024 text/html 84-year-old with history of dyslipidemia chronic headaches and chronic back pain comes in for evaluation of her medical problems dyslipidemia and headaches appear to be stable no symptoms referable to the head or back pains been doing about the same. has had very rough road in and out of the hospital and that has been bothering her Luis Angel Delgado MD Attn: Accounting, [address] [facility], [place], [address], [facility] - [facility] 05/05/2024 22:55:21 08/30/2024 text/html blood pressure 128/64 asymptomatic. Headaches have been somewhat stable dyslipidemia taking her rosuvastatin try to watch her diet. Back pain maybe a little bit worse lots of stress lost her in the interval history. Luis Angel Delgado MD Attn: Accounting, [address] [facility], [place], [address], [facility] - [facility] 09/03/2024 21:10:48 01/18/2025 text/html 84-year-old with history of dyslipidemia chronic headaches and chronic back pain comes in for evaluation of her medical problems dyslipidemia and headaches appear to be stable no symptoms referable to the head or back pains been doing about the same. 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, [place], [address], [facility] 02/03/2025 22:05:52 OBGyn Episode No OBEpisode recorded.
[2025-04-12 21:55] LABS: Alanine Aminotransferase 44 U/L (6-35); Albumin Level 4.1 g/dL (3.5-5.1); Alkaline Phosphatase 42 U/L (38-126); Anion Gap 12 mmol/L (4-12); Aspartate Amino Transferase 46 U/L (14-36); Bilirubin,Total 0.3 mg/dL (0.2-1.3); Blood Urea Nitrogen 17 mg/dL (7-17); Calcium 8.8 mg/dL (8.4-10.2); Carbon Dioxide 20 mmol/L (22-30); Chloride 105 mmol/L (98-107); Estimated CRCL calculation 44 ml/min; Estimated Glomerular Filt Rate > 60; Glucose 149 mg/dL (65-110); Lipase 89 U/L (23-300); Magnesium 1.9 mg/dL (1.6-2.3); Potassium 3.5 mmol/L (3.4-5.0); Sodium 137 mmol/L (137-145); Total Protein 7.3 g/dL (6.3-8.2)
[2025-04-12 21:57] LABS: INR 1.1; Prothrombin Time 13.7 Seconds (11.1-14.7)
[2025-04-12 21:58] LABS: Partial Thromboplastin Time 28.5 Seconds (22.3-36.8)
[2025-04-12 22:06] LABS: Troponin I < 0.012 ng/mL (0.000-0.034)
[2025-04-12 22:55] VITALS: BP 136/75; PULSE 74; RESP 18; O2SAT 94
[2025-04-13 01:47] LABS: Troponin I < 0.012 ng/mL (0.000-0.034)
== END 2025-04-13 03:35 | disposition left against medical advice (07) ==
PROVIDERS: Emergency Provider Emergency Medicine; PCP Nurse Practitioner Adult Health
DX: R07.9 Chest pain, unspecified (principal); E78.5 Hyperlipidemia, unspecified; I10 Essential (primary) hypertension
CPT/HCPCS: 36415; 71045; 80053; 83690; 83735; 84484; 85025; 85610; 85730; 93005; 99284

== ENCOUNTER 2025-05-30 09:10 | Outpatient (CLI) | payer MEDICARE, SELFPAY ==
--- OUTSIDE RECORDS SUMMARY | 2010-05-13 09:15 | XMS_ITS | Continuity of Care Document ---
Author Organization [facility] Address [address] [facility] [address] [place] [address] Phone Care Team Providers Care Stain Dipper Name Role Phone Pete Bridges Unavailable Unavailable Procedures Procedure Date Office/outpatient Visit, Est Office/outpatient Visit, Est No Script Office/outpatient Visit, Est Post-op Follow-up Visit Post-op Follow-up Visit Post-op Follow-up Visit Post-op Follow-up Visit Remove Cataract, Insert Lens Eye Exam & Treatment Echo Exam Of Eye-Professional 8 Eye Exam & Treatment Refraction Advance Directives Directive Yes / No Effective Date File Name No Information Encounters Encounter Description Practice Location Reason(s) For Visit Diagnoses Date Provider Providers Copied on Encounter Office/outpat ient Visit, [facility], [address] [place] [address] [address], [place], [place], [address], [place] tel:[phone] SEC [facility] No Information 9-201 0 Yuliana Pete. [address] [facility] [address], [place], [address], [place]. tel:[phone] Office/outpat ient Visit, [facility], [address], [place], [place], [address], [place] tel:[phone] [facility] No Information Brayden-2 0-200 9 Krishnasamy Pete. [address] [facility] [address], [place], [address], [place]. tel:[phone] Office/outpat ient Visit, Est [facility], [address], [place], [place], [address], [place] tel:[phone] SEC [facility] No Information Dec-1 6-200 8 Krishnasamy Pete. [address], [place], [address], [place]. tel:[phone] [facility], [address], [place], [place], [address], [place] tel:[phone] [facility] No Information Sep-2 3-200 8 Krishnasamy Pete. [address] [facility], [place], [place], [place], [place]. tel:[phone] [facility], [address], [place], [place], [address], [place] tel:[phone] [facility] No Information Sep-0 2-200 8 Krishnasamy Pete. [address] [facility] [address], [place], [address], [place]. tel:[phone] [facility], [address], [place], [place], [address], [place] tel:[phone] [facility] No Information Aug-1 1-200 8 Krishnasamy Pete. [address] [facility] [address], [place], [address], [place]. tel:[phone] [facility], [address], [place], [place], [address], [place] tel:[phone] [facility] No Information Aug-0 1-200 8 Krishnasamy Pete. [address], [place], [address], [place]. tel:[phone] [facility], [address], [place], [place], [address], [place] tel:[phone] [facility] No Information 1200 8 Krishnasamy Pete. [address] [place] [address] [address], [place], [place], [place]. tel:[phone] [facility], [address], [place], [place], [address], [place] tel:[phone] [facility] No Information 200 8 Krishnasamy Pete. [address] [place] [address], [place], [place]. tel:[phone] Referring Provider: Pete gooden, [address] [place] [address], [place]. tel:[phone] [facility], [address] [facility] [address], [place], [place], [address], [place] tel:[phone] [facility] No Information 7 Chaymandie Moncada. [address] [facility], [address], [place], [place], [address], [place]. tel:[phone] Family History Family Member Type Diagnosis Age At Onset No Information Payers Payer name Insurance type Covered alliance party ID Authoriza tion(s) [place] [id number] [place] [id number] Social History Type Description Quantity Date Captured Comments Sex Female Smoking Status No Information Chief Complaint And Reason For Visit No Information Reason For Referral Reason For Referral No Information History Of Present Illness Encounter Date Complaint History Of Prese nt Illness No Information Functional Status Date Functional Assessmen t No Information Instructions Date Instruction Additional Infor mation No Information Assessments Type Assessment Date No Information Patient Care Teams Name Effective Dates (start - stop) Status Members No Information
--- NOTE | ~2025-05-30 | NM_ITS ---
EXAMINATION: NM trupti stress w perfusion DATE: 05/30/2025 10:56 INDICATION: Chest pain TECHNIQUE: Rest images were obtained following intravenous administration of 10.5 mCi Tc99m tetrofosmin (Myoview). The patient was infused intravenously with Lexiscan (Regadenoson). Then, 34.4 mCi Tc99m tetrofosmin (Myoview) was administered intravenously, and stress images were obtained. Data was leeann nstructed into short axis and horizontal and vertical long axis SPECT images. Gated SPECT images were also obtained. COMPARISON: None. FINDINGS: There is no definite reversible or fixed perfusion abnormality to suggest ischemia or infarction. There is normal left ventricular chamber size, wall motion and ejection fraction. Left ventricular ejection fraction measures >70%. IMPRESSION: 1. Normal myocardial perfusion at rest and during stress. 2. Left ventricular ejection fraction measuring >70%. Reviewed, dictated and finalized at location A.
--- NOTE | 2025-05-30 09:29 | EST_ITS ---
Patient Info Name: Juanis Acosta Age: 85 years : 1940 Gender: Female Ht: 63 in Wt: 150 lbs BSA: 1.76 m2 HR: 61 bpm BP: 202 / 92 mmHg Exam Date: 05/30/2025 9:29 AM Patient Status: O Admit Date: 05/30/2025 Exam Type: CA stress trupti w NM A regadenoson stress test was performed. Staff Referring Physician: Daniel Bravo DO Attending Provider: Daniel Bravo DO Exercise Technologist: Erendira Meier Exercise Physician: Daniel Bravo DO Summary 1. 1. Negative lexiscan stress test for ischemic ST changes by ECG criteria. 2. 2. Baseline hypertension. 3. 3. Nuclear scan to follow and will be reported separately. Please correlate with it. 4. 4. Patient informed of the above results. Protocol: Lexiscan Stress ECG Details Stage: REST Duration (min): 3 min : 16 sec HR (bpm): 61 SBP (mmHg): 202 DBP (mmHg): 92 Stage: REST Duration (min): 5 min : 37 sec HR (bpm): 61 SBP (mmHg): 202 DBP (mmHg): 92 Stage: STAGE 1 Duration (min): 1 min : 0 sec HR (bpm): 71 SBP (mmHg): 191 DBP (mmHg): 79 Stage: RECOVERY Duration (min): 1 min : 0 sec HR (bpm): 73 SBP (mmHg): 191 DBP (mmHg): 79 Stage: RECOVERY Duration (min): 2 min : 0 sec HR (bpm): 72 SBP (mmHg): 191 DBP (mmHg): 79 Stage: RECOVERY Duration (min): 3 min : 0 sec HR (bpm): 72 SBP (mmHg): 191 DBP (mmHg): 79 Stage: RECOVERY Duration (min): 4 min : 0 sec HR (bpm): 73 SBP (mmHg): 159 DBP (mmHg): 80 Stage: RECOVERY Duration (min): 5 min : 0 sec HR (bpm): 67 SBP (mmHg): 156 DBP (mmHg): 79 Stage: RECOVERY Duration (min): 5 min : 9 sec HR (bpm): 65 SBP (mmHg): 156 DBP (mmHg): 79 Rest HR: 61 bpm Peak HR: 74 bpm Rest Sys BP: 202 mmHg Peak Sys BP: 191 mmHg Max Pred HR: 137 bpm % Max Pred HR: 54 % Target HR: 116 bpm Max RPP: 14,134 bpm*mmHg Termination Reason: Completed protocol Cardiac Symptoms: Shortness of breath, Stomach discomfort Total Time: 1 min : 0 sec Rest Berry BP: 92 mmHg Peak Berry BP: 79 mmHg Total Dose: 0.4 mg Resting ECG Sinus rhythm. Stress ECG No ST changes. Arrhythmias None. Report Signatures
--- OUTSIDE RECORDS SUMMARY | 2025-05-30 09:29 | XMS_ITS | Clinical Summary ---
Author Organization [facility] Address [address] [place] [id number] Care Team Providers Care Base Wad Operator Adjuster Name Role Phone Jose Maria Delgado MD Primary Care Provider [phone] Ashley Day NP Unavailable Allergies Active Allergy [...] (10/16/2020): Added automatically from request for surgery [id number] Immunizations Immunization Administration Dates Next Due Influenza, Quadrivalent, Hig h Dose, Preservative Free, Intrr 07/10/2020 Influenza, Trivalent, High D ose, Split, Preservative Free, Intramuscular 07/01/2018,06/23/2017,07/22/2016 Influenza, Trivalent, IM (MDV) 07/19/2019 Influenza, Unspecified 07/10/2020 Nexant (J&J) SARS-CoV-2 Vaccination 12/13/2020 Pneumococcal Conjugate PCV 13 09/25/2016 Pneumococcal Polysaccharide PPV23 10/05/2011 ZOSTER LIVE 10/05/2003 Surgical History Surgery Date Site/Laterality Comments HYSTERECTOMY BACK SURGERY SPINAL FUSION CARPAL TUNNEL RELEASE THYROIDECTOMY 10/05/2006 - 10/04/2007 CATARACT EXTRACTION, BILATERAL 1999 AND 2008 HIP SURGERY 04/04/2018 - 05/04/2018 Medical History Medical History Date Comments Arthritis Migraines Peripheral neuropathy Neuropathy in diabetes Delayed emergence from general anesthesia Family History [...] on file Legal Sex 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 Gender Identity Not on file Sexual Orientation Not on file Obstetrics History Last Filed Vital Signs Vital Sign Reading Time Taken Comments Blood Pressure 111/85 10/18/2020 9:47 AM SHEET MANAGER Pulse 73 10/18/2020 9:47 AM SHEET MANAGER Temperature 36.6 C (97.9 F) 10/18/2020 3:27 AM SHEET MANAGER Respiratory Rate 18 10/18/2020 3:27 AM SHEET MANAGER Oxygen Saturation 92% 10/18/2020 9:47 AM SHEET MANAGER Inhaled Oxygen Concentration - - Weight 67.6 [...] Risk Assessment 10/18/2021 10/18/2020 Covid-19 Vaccine (2 - 2023-2 5 season) 2024 12/13/2020 Influenza Vaccine (#1) 2025 , 07/10/2020, 07/19/2019, Additional history exists Pneumococcal vaccine 65+ Completed 09/25/2016, 10/2011 Medical Devices Implanted Type Area Cigar Tobacco Rehandler Device Identifier Shelf Expiration Date Model / Serial / Lot Spinal Graft Tech [id number] Gay 1.5x1.5cm Flex Graft Bone Demineralized Bone Matrix - [id number] - [id number] Implanted:Qty: 1 on 10/17/2020 by Jose Maria Vines MD at [facility] N/A: Spine Cervical [employer] 04/30/2023 [id number] / [id number] / Musculoskeletal Transplant [id number] Frozen Spine 7d Lordotic Trapezoid Spacer Allograft - [id number] - [id number] Implanted:Qty: 1 on 10/17/2020 by Jose Maria Vines MD at [facility] N/A: Spine Cervical Musculoskeletal Transplant 04/05/2025 [id number] / [id number] / [employer] [id number] Maxan 9mm Cervical Spine Plate Bone - [id number] Implanted:Qty: 1 on 10/17/2020 by Jose Maria Vines MD at [facility] N/A: Spine Cervical [employer] [id number] / / [employer] [id number] 4mm 16mm Fix Screw Bone - [id number] Implanted:Qty: 2 on 10/17/2020 by Jose Maria Vines MD at [facility] N/A: Spine Cervical [employer] [id number] / / [employer] [id number] Maxan 4.5mm 14mm Fix Angle Spine Screw Bone - [id number] Implanted:Qty: 2 on 10/17/2020 by Jose Maria Vines MD at [facility] N/A: Spine Cervical [employer] [id number] / / Insurance MEDICARE [facility] MEDICARE SUPPLEMENT INSURANCE MEDICARE [employer] MEDICARE SUPPLEMENT INSURANCE MEDICARE MEDICARE Advance Directives For more information, please contact: [phone] * Full Code (Latest Code Status on File) Date Activated Date Inactivated Comments 10/17/2020 10:46 AM 10/18/2020 6:15 PM * Full Code Date Activated Date Inactivated Comments 10/16/2020 1:21 PM 10/17/2020 10:46 AM Care Teams Base Wad Operator Adjuster Relationship Specialty Start Date End Date Jose Maria Delgado MD PCP - General Internal Medicine 10/11/20 Ashley Day NP Nurse Practitioner Orthopedic Surgery 10/18/20
--- OUTSIDE RECORDS SUMMARY | 2025-05-30 09:29 | XMS_ITS | Clinical Summary ---
Author Organization [facility] Address [address] [place] [address] Care Team Providers Care Sausage Grinder Name Role Phone Jose Maria Delgado MD Primary Care Provider [phone] Source Comments [facility],non-owned Affiliates and Associated Physician Practices is amultiple site organization consisting of ambulatory clinics and hospital sitesin [place], [place], [place] and [place]. This disclosure is being madepursuant to the Care Everywhere program and may not contain all information available regarding this patient. 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
== END 2025-05-30 09:11 | disposition home or self-care (01) ==
PROVIDERS: PCP Nurse Practitioner Adult Health; Visit Provider Internal Medicine Cardiovascular Disease
DX: R07.9 Chest pain, unspecified (principal)
CPT/HCPCS: 78452; 93017; A9502; J2785

== ENCOUNTER 2025-07-07 12:12 | Outpatient (CLI) | payer MEDICARE, SELFPAY ==
[2025-07-07 13:26] LABS: Alanine Aminotransferase 41 U/L (6-35); Albumin Level 4.4 g/dL (3.5-5.1); Alkaline Phosphatase 47 U/L (38-126); Anion Gap 9 mmol/L (4-12); Aspartate Amino Transferase 47 U/L (14-36); Bilirubin,Total 0.4 mg/dL (0.2-1.3); Blood Urea Nitrogen 20 mg/dL (7-17); Calcium 9.2 mg/dL (8.4-10.2); Carbon Dioxide 27 mmol/L (22-30); Chloride 103 mmol/L (98-107); Cholesterol 157 mg/dL (0-200); Estimated Glomerular Filt Rate > 60; Glucose 93 mg/dL (65-110); HDL Direct 50 mg/dL; Potassium 5.1 mmol/L (3.4-5.0); Sodium 139 mmol/L (137-145); Total Protein 7.7 g/dL (6.3-8.2); Triglycerides 260 mg/dL (<150)
[2025-07-07 13:55] LABS: Hepatitis B Surface Antigen Negative (Negative)
[2025-07-07 14:01] LABS: HAV RESULT Negative (Negative); Hepatitis B Core IgM Result Negative (Negative)
[2025-07-07 14:02] LABS: Thyroid Stimulating Hormone 2.180 uIU/mL (0.465-4.680)
[2025-07-07 14:21] LABS: Vitamin B12 593.0 pg/mL (239-931)
== END 2025-07-07 12:13 | disposition home or self-care (01) ==
PROVIDERS: PCP Family Medicine; Visit Provider Family Medicine
DX: E78.5 Hyperlipidemia, unspecified (principal); I10 Essential (primary) hypertension; E89.0 Postprocedural hypothyroidism; R74.01 Elevation of levels of liver transaminase levels
CPT/HCPCS: 36415; 80053; 80061; 80074; 82607; 84443

== ENCOUNTER 2025-07-21 08:46 | Outpatient (CLI) | payer MEDICARE, SELFPAY ==
--- OUTSIDE RECORDS SUMMARY | 2010-05-13 09:15 | XMS_ITS | Continuity of Care Document ---
Author Organization [facility] Address [address] [facility] [address] [place] [address] Phone Care Team Providers Care Financial Compliance Officer Name Role Phone Pete Bridges Unavailable Unavailable [...] Providers Copied on Encounter Office/outpat ient Visit, [facility], [address] [place] [address] [address], [place], [place], [address], [place] tel:[phone] SEC [facility] No Information 9-201 0 Yuliana Pete. [address] [facility] [address], [place], [address], [place]. tel:[phone] Office/outpat ient Visit, [facility], [address], [place], [place], [address], [place] tel:[phone] SEC [facility] No Information Brayden-2 0-200 9 Krishnasamy Pete. [address] [facility] 102, [place], [address], [place]. tel:[phone] Office/outpat ient Visit, Est [facility], [address], [place], [place], [address], [place] tel:[phone] SEC [facility] No Information Dec-1 6-200 8 Krishnasamy Pete. [address], [place], [address], [place]. tel:[phone] [facility], [address], [place], [place], [address], [place] tel:[phone] [facility] No Information Sep-2 3-200 8 Krishnasamy Pete. [address] [facility] [address], [place], [place], [facility], [place]. tel:[phone] [facility], [address], [place], [place], [address], [place] tel:[phone] [facility] No Information Sep-0 2-200 8 Krishnasamy Pete. [address] [facility] [address], [address], [place]. tel:[phone] [facility], [address], [place], [place], [address], [place] tel:[phone] SEC [facility] No Information Aug-1 1-200 8 Krishnasamy Pete. [address] [facility] [address], [place], [address], [place]. tel:[phone] [facility], [address], [place], [place], [address], [place] tel:[phone] SEC [facility] No Information Aug-0 1-200 8 Krishnasamy Pete. [address], [place], [address], [place]. tel:[phone] [facility], [address], [place], [place], [address], [place] tel:[phone] [facility] No Information 1200 8 Krishnasamy Pete. [address] [place] [address], [place], [facility], [place]. tel:[phone] [facility], [address], [place], [place], [address], [place] tel:[phone] SEC [facility] No Information 200 8 Krishnasamy Pete. [address] [place] [address], [facility], [place]. tel:[phone] Referring Provider: Pete gooden, [address] [place] [address], [facility]. tel:[phone] [facility] Eye [facility], [address] [facility] [place] [address], [place], [place], [address], [place] tel:[phone] SEC [facility] No Information 7 Chaymandie Moncada. [address] [facility], [address], [place], [place], [address], [place]. tel:[phone] Family History Family Member Type Diagnosis Age At Onset No Information Payers Payer name Insurance type Covered green party ID Authoriza tion(s) [place] [id number] [place] [id number] Social History Type Description Quantity Date Captured [...]
--- NOTE | ~2025-07-21 | US_ITS ---
ULTRASOUND ABDOMEN LIMITED (RIGHT UPPER QUADRANT) Clinical History: R74.8 - Abnormal levels of other serum enzymes Comparison: None Technique: Right upper quadrant sonography Findings: Liver: Enlarged. Echogenic. No intrahepatic biliary ductal dilatation. Normal hepatopedal flow main portal vein. Common Duct: 6 mm. Gallbladder: No stones. No wall thickening. No pericholecystic fluid. Pancreas: Unremarkable. IMPRESSION: 1. Hepatomegaly, with steatosis and/or hepatocellular disease. Reviewed, dictated and finalized at location R.
--- OUTSIDE RECORDS SUMMARY | 2025-07-21 08:57 | XMS_ITS | Clinical Summary ---
Author Organization [facility] Address [address] [place] [address] Care Team Providers Care Decay Control Operator Name Role Phone Jose Maria Delgado MD Primary Care Provider [phone] Source Comments [facility],non-owned Affiliates and Associated Physician Practices is amultiple site organization consisting of ambulatory clinics and hospital sitesin [place], [place], [place] and [place]. This disclosure is being madepursuant to the Care Everywhere program and may not contain all information available regarding this patient. 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 Plan of Treatment Health Maintenance Due Date Last Done Comments BONE DENSITY TESTING 1940 DTAP/TDAP/TD VACCINES (1 - Tdap) 1961 PNEUMOCOCCAL VACCINE 50+ (1 of 1 - PCV) 01/25/1992 ZOSTER VACCINE (1 of 2) 01/25/1992 Respiratory Syncytial Virus (RSV) Vaccine Pt: or over 60 yrs (1 - 1-dose 75+ series) 2017 DEPRESSION SCREENING 10/05/2024 COVID-19 VACCINE (1 - 2023-2 5 season) 2025 INFLUENZA VACCINE (#1) 2025 HEPATITIS B VACCINE [...] age to complete this topic Insurance MEDICARE [facility] [place] [id number] Advance Directives * Full Code (Latest Code Status on File) Date Activated Date Inactivated Comments 06/20/2010 5:55 PM 06/22/2010 12:41 AM Care Teams Decay Control Operator Relationship Specialty Start Date End Date Jose Maria Delgado MD PCP - General Internal Medicine 08/15/15
--- OUTSIDE RECORDS SUMMARY | 2025-07-21 08:57 | XMS_ITS | Data Portability ---
Author Organization [facility] Aniika, Main Office Address [address] [place] [address] Care Team Providers Care Banquet Manager Name Role Phone LUIS ANGEL DELGADO Primary Care Provider LUIS ANGEL DELGADO Referring Provider Assessment Encounter Date Assessment Date Assessment LastModified by Organization Details LastModified Time 02/13/2023 02/13/2023 EKG shows sinus arrhythmia nonspecific ST changes ENT Complete echo 2 week culture blood work Chest x-ray Wellness completed [email or web address] Not available 03/01/2023 14:26:31 07/02/2023 07/02/2023 Will continue current therapy follow-up with me in 4 months her breathing has been stable for at least 6 months she says if he gets worse she will let us know [email or web address] Not available 07/12/2023 21:06:25 08/06/2023 08/06/2023 Impression: [...] will follow-up with me in 4 months [email or web address] Not available 11/03/2023 21:35:54 Plan of Treatment Reminders Order Date Submit Date Provider Last Modified By Organization Details Last Modified Time Details Appointments None recorded. Lab CBC w/ auto diff 2022 023 [facility] (Lab), [address] [place], [address], 3 19:41:47 CMP, serum or plasma 2022 023 [facility] (Lab), [address] [place], [address], 3 20:03:23 TSH, serum or plasma 2022 023 [facility] (Lab), [address] [place], [address], 3 20:41:52 T4, free, serum 2022 023 [facility] (Lab), [address] [place], [address], 3 20:29:09 T3, free, serum or plasma 2022 023 [facility] (Lab), [address] [place], [address], 3 20:29:12 lipid panel, serum 2022 023 [facility] (Lab), [address] [place], [address], 3 20:03:17 Referral ENT surgery referral 2022 023 jose Gary MD, [address], [place], [address], 3 15:55:52 Procedures magaly maneuver (PROC) 2022 023 [facility], [address], [place], [address], 3 10:30:50 Surgeries None recorded. Imaging XR, shoulder 2022 023 [email or web address] [facility], [address] [facility], [address], [place], [address], 3 10:47:02 US, echocardiog brijesh 2022 023 [facility] ([facility] Sched[facility]), [address], [place], [address], 3 14:58:26 cardiac telemetry - 2wk telemetry 2022 023 [facility], [address] [facility], [address], [place], [address], 3 10:33:51 electrocard iogram 2022 023 [email or web address] [facility] [address], [address], [place], [address], 3 16:11:12 XR, chest 2022 023 [email or web address] Not available 3 09:07:55 Medication Orders None recorded. Patient TargetsNo targets recorded. Patient Instructions Encounter Date Encounter Id Patient Instructions Last Modified By Organization Details Last Modified Time 02/13/2023 [id number] dementia rating scale-2* [email or web address] Not available 02/13/2023 16:11:12 depression screening* [email or web address] Not available 02/13/2023 16:11:12 alcohol misuse* [email or web address] Not available 02/13/2023 16:11:12 multi-dimensiona l health assessment questionnaire* [email or web address] Not available 02/13/2023 16:11:12 Personalized [facility] Plan and Screening Recommendations Advance Directives - [...] for Referral ENT Surgery Referral for Abhilash carolina Referring Physician: Luis Angel Delgado, Internal Medicine, Encounter Date: 02/13/2023 Results Created Date Observation Date Name Description Value Unit Range Abnormal Flag Note LastModifiedBy Organization Detail LastModifiedTime 02/14/20 23 02/13/2023 CBC/C OMPLE TE BLD COUNT W/DIF F white blood cells 7.4 x10'3 /uL 4.2-10 .8 Not Available [facility] (Lab) [address] [place], [address], 02/13/2023 19:41:47 02/14/20 23 02/13/2023 CBC/C OMPLE TE BLD COUNT W/DIF F red blood cells 4.52 x10'6 /uL 3.80-5 .20 Not Available [facility] (Lab) [address] [place], [address], 02/13/2023 19:41:47 02/14/20 23 02/13/2023 CBC/C OMPLE TE BLD COUNT W/DIF F hemoglobin 14.4 g/dL 12.0-1 5.6 Not Available [facility] (Lab) [address] [place], [address], 02/13/2023 19:41:47 02/14/20 23 02/13/2023 CBC/C OMPLE TE BLD COUNT W/DIF F hematocrit 43.1 % 35.7-4 5.7 Not Available [facility] (Lab) [address] [place], [address], 02/13/2023 19:41:47 02/14/20 23 02/13/2023 CBC/C OMPLE TE BLD COUNT W/DIF F mean red cell volume 95.4 fL 82.0-9 9.0 Not Available [facility] (Lab) [address] [place], [address], 02/13/2023 19:41:47 02/14/20 23 02/13/2023 CBC/C OMPLE TE BLD COUNT W/DIF F mean red cell hemoglobin 31.9 pg 27.0-3 3.0 Not Available [facility] (Lab) [address] [place], [address], 02/13/2023 19:41:47 02/14/20 23 02/13/2023 CBC/C OMPLE TE BLD COUNT W/DIF F mean RBC HGB concentratio n 33.4 g/dL 31.0-3 6.0 Not Available [facility] (Lab) [address] [place], [address], 02/13/2023 19:41:47 02/14/20 23 02/13/2023 CBC/C OMPLE TE BLD COUNT W/DIF F red cell distribution width 13.0 % 11.8-1 5.5 Not Available [facility] (Lab) [address] [place], [address], 02/13/2023 19:41:47 02/14/20 23 02/13/2023 CBC/C OMPLE TE BLD COUNT W/DIF F platelets 261 x10'3 /uL 150-40 0 Not Available [facility] (Lab) [address] [place], [address], 02/13/2023 19:41:47 02/14/2002/13/2023 CBC/C OMPLE TE BLD COUNT W/DIF F mean platelet volume 10.3 fL 9.0-12 .4 Not Available [facility] (Lab) [address] [place], [address], 02/13/2023 19:41:47 02/14/20 23 02/13/2023 CBC/C OMPLE TE BLD COUNT W/DIF F neutrophils 46.0 % 39.0-7 2.0 Not Available [facility] (Lab) [address] [place], [address], 02/13/2023 19:41:47 02/14/20 23 02/13/2023 CBC/C OMPLE TE BLD COUNT W/DIF F lymphocytes 36.2 % 16.0-4 7.0 Not Available [facility] (Lab) [address] [place], [address], 02/13/2023 19:41:47 02/14/2002/13/2023 CBC/C OMPLE TE BLD COUNT W/DIF F monocytes 12.8 % 5.0-12 .0 high Not Available [facility] (Lab) [address] [place], [address], 02/13/2023 19:41:47 02/14/20 23 02/13/2023 CBC/C OMPLE TE BLD COUNT W/DIF F eosinophils 4.0 % 1.0-7. 0 Not Available [facility] (Lab) [address] [place], [address], 02/13/2023 19:41:47 02/14/20 23 02/13/2023 CBC/C OMPLE TE BLD COUNT W/DIF F basophils 0.7 % 0.0-2. 0 Not Available [facility] (Lab) [address] [place], [address], 02/13/2023 19:41:47 02/14/20 23 02/13/2023 CBC/C OMPLE TE BLD COUNT W/DIF F immature granulocytes 0.3 % 0.00-0 .50 Not Available [facility] (Lab) [address] [place], [address], 02/13/2023 19:41:47 02/14/20 23 02/13/2023 CBC/C OMPLE TE BLD COUNT W/DIF F neutrophils, absolute count 3.43 x10'3 /uL 1.5-8. 0 Not Available [facility] (Lab) [address] [place], [address], 02/13/2023 19:41:47 02/14/20 23 02/13/2023 CBC/C OMPLE TE BLD COUNT W/DIF F lymphocytes, absolute count 2.69 x10'3 /uL 1.07-3 .43 Not Available [facility] (Lab) [address] [place], [address], 02/13/2023 19:41:47 02/14/20 23 02/13/2023 CBC/C OMPLE TE BLD COUNT W/DIF F monocytes, absolute count 0.95 x10'3 /uL 0.29-0 .99 Not Available [facility] (Lab) [address] [place], [address], 02/13/2023 19:41:47 02/14/20 23 02/13/2023 CBC/C OMPLE TE BLD COUNT W/DIF F eosinophils, absolute count 0.30 x10'3 /uL 0.02-0 .53 Not Available [facility] (Lab) [address] [place], [address], 02/13/2023 19:41:47 02/14/20 23 02/13/2023 CBC/C OMPLE TE BLD COUNT W/DIF F basophils, absolute count 0.05 x10'3 /uL 0.01-0 .08 Not Available [facility] (Lab) [address] [place], [address], 02/13/2023 19:41:47 02/14/20 23 02/13/2023 CBC/C OMPLE TE BLD COUNT W/DIF F immature granulocytes ,absolute 0.02 x10'3 /uL 0.00-0 .05 Not Available [facility] (Lab) [address] [place], [address], 02/13/2023 19:41:47 02/14/20 23 02/13/2023 CBC/C OMPLE TE BLD COUNT W/DIF F nucleated red blood cells 0.0 % -0 Not Available [facility] (Lab) [address] [place], [address], 02/13/2023 19:41:47 02/14/20 23 02/13/2023 CBC/C OMPLE TE BLD COUNT W/DIF F NRBC# 0.00 x10'3 /uL Not Available [facility] (Lab) [address] [place], [address], 02/13/2023 19:41:47 02/14/20 23 02/13/2023 LIPID PANEL cholesterol 165 mg/dL 140-19 9 NIH JUAN CARLOS NSUS RECOM MENDA TION FOR YENI STERO L: ADULT CHILD LOW RISK: <200 <170 BORDE LING : <200- 239 ----- HIGH RISK: >240 >200 Not Available [facility] (Lab) [address] [place], [address], 02/13/2023 20:16:17 02/14/2002/13/2023 LIPID PANEL triglyceride s 292 mg/dL 0-150 high NIH JUAN CARLOS NSUS REPOR T RECOM MENDA TION FOR TRIGL YCERI ELISA: ADULT CHILD LOW RISK: <150 ----- BODER LINE: 150-1 99 ----- HIGH RISK: >200 ----- Not Available [facility] (Lab) [address] [place], [address], 02/13/2023 20:16:17 02/14/2002/13/2023 LIPID PANEL HDL cholesterol 50 mg/dL 40- Not Available [facility] (Lab) [address] [place], [address], 02/13/2023 20:16:17 02/14/2002/13/2023 LIPID PANEL LDL cholesterol, [...] WILL NOT BE REPOR SMITH. Not Available [facility] (Lab) [address] [place], [address], 02/13/2023 20:16:17 02/14/2002/13/2023 COMPR EHENS YAZMIN METAB OLIC PANEL sodium 141 mmol/ L 137-14 5 Not Available [facility] (Lab) [address] [place], [address], 02/13/2023 20:03:23 02/14/2002/13/2023 COMPR EHENS YAZMIN METAB OLIC PANEL potassium 4.4 mmol/ L 3.5-5. 1 Not Available [facility] (Lab) [address] [place], [address], 02/13/2023 20:03:23 02/14/20 23 02/13/2023 COMPR EHENS YAZMIN METAB OLIC PANEL chloride 104 mmol/ L 98-107 Not Available [facility] (Lab) [address] [place], [address], 02/13/2023 20:03:23 02/14/20 23 02/13/2023 COMPR EHENS YAZMIN METAB OLIC PANEL carbon dioxide 30 mmol/ L 22-30 Not Available [facility] (Lab) [address] [place], [address], 02/13/2023 20:03:23 02/14/20 23 02/13/2023 COMPR EHENS YAZMIN METAB OLIC PANEL anion gap 11.4 mmol/ L 14-22 low Not Available [facility] (Lab) [address] [place], [address], 02/13/2023 20:03:23 02/14/20 23 02/13/2023 COMPR EHENS YAZMIN METAB OLIC PANEL glucose 78 mg/dL 70-99 Not Available [facility] (Lab) [address] [place], [address], 02/13/2023 20:03:23 02/14/20 23 02/13/2023 COMPR EHENS YAZMIN METAB OLIC PANEL BUN 22 mg/dL 8-19 high Not Available [facility] (Lab) [address] [place], [address], 02/13/2023 20:03:23 02/14/20 23 02/13/2023 COMPR EHENS YAZMIN METAB OLIC PANEL creatinine 0.96 mg/dL 0.66-1 .25 Not Available [facility] (Lab) [address] [place], [address], 02/13/2023 20:03:23 02/14/20 23 02/13/2023 COMPR EHENS YAZMIN METAB OLIC PANEL GFR 56 Refer ence Range : [place] [facility] GFR Healt hy Adult : >60 mL/mi n/1.7 3 m2 Chron ic Kidne y Disea se: 15-60 mL/mi n/1.7 3 m2 Kidne y Failu re: <15/m L/min /1.73 m2 www.n iddk. nih.g ov The MDRD study equat ion has not been valid ated in child brijesh <18 years of age; pregn ant women ; the elder ly >85 years of age; or in some racia l or ethni c subgr oups, such as Hispa nics. Outsi de the valid ated joe [...] calcu lator is avail able on the [facility] websi te: https ://alice horton.tamie saab.o rg/pr ofess ional s/kdo qi/gf r_cal culat or Not Available [facility] (Lab) [address] [place], [address], 02/13/2023 20:03:23 02/14/20 23 02/13/2023 COMPR EHENS YAZMIN METAB OLIC PANEL alkaline phosphatase 41 U/L 38-126 Not Available [facility] (Lab) [address] [place], [address], 02/13/2023 20:03:23 02/14/20 23 02/13/2023 COMPR EHENS YAZMIN METAB OLIC PANEL alanine aminotransfe rase 33 U/L 0-35 Not Available [facility] (Lab) [address] [place], [address], 02/13/2023 20:03:23 02/14/20 23 02/13/2023 COMPR EHENS YAZMIN METAB OLIC PANEL aspartate aminotransfe rase 38 U/L 15-37 high Not Available [facility] (Lab) [address] [place], [address], 02/13/2023 20:03:23 02/14/20 23 02/13/2023 COMPR EHENS YAZMIN METAB OLIC PANEL bilirubin, total 0.50 mg/dL 0.20-1 .30 Not Available [facility] (Lab) [address] [place], [address], 02/13/2023 20:03:23 02/14/20 23 02/13/2023 COMPR EHENS YAZMIN METAB OLIC PANEL calcium 10.3 mg/dL 8.4-10 .2 high Not Available [facility] (Lab) [address] [place], [address], 02/13/2023 20:03:23 02/14/20 23 02/13/2023 COMPR EHENS YAZMIN METAB OLIC PANEL total protein 7.4 g/dL 6.3-8. 2 Not Available [facility] (Lab) [address] [place], [address], 02/13/2023 20:03:23 02/14/20 23 02/13/2023 COMPR EHENS YAZMIN METAB OLIC PANEL albumin 4.2 g/dL 3.0-4. 4 Not Available [facility] (Lab) [address] [place], [address], 02/13/2023 20:03:23 02/14/20 23 02/13/2023 COMPR EHENS YAZMIN METAB OLIC PANEL globulin 3.2 g/dL 2.6-4. 2 Not Available [facility] (Lab) [address] [place], [address], 02/13/2023 20:03:23 02/14/20 23 02/13/2023 COMPR EHENS YAZMIN METAB OLIC PANEL A/G ratio 1.3 ratio 1.0-2. 0 Not Available [facility] (Lab) [address] [place], [address], 02/13/2023 20:03:23 02/14/20 23 02/13/2023 T4 FREE free T4 1.08 NG/dL 0.78-2 .19 Not Available [facility] (Lab) [address] [place], [address], 02/13/2023 20:29:09 02/14/20 23 02/13/2023 T3 FREE free T3 3.1 pg/mL 2.77-5 .27 Not Available [facility] (Lab) [address] [place], [address], 02/13/2023 20:29:12 02/14/20 23 02/13/2023 TSH thyroid-stim ulating hormone 3.770 uIU/m L 0.465- 4.680 Not Available [facility] (Lab) [address] [place], [address], 02/13/2023 20:41:52 02/14/20 23 elect rocar diogr am No observ ation record ed. [email or web address] [facility] [address] [facility], [place], [address], 02/13/2023 12:37:29 02/14/20 23 XR, chest [facility] [address] [place] [address] Patien t Name: MACO ACOSTA Access ion #: [id number] Sex: F : 1939 7 Locati [...] fully imaged here. Page 1 of 2 [facility] t Name: MACO ACOSTA Access ion #: [id number] Sex: F : 1939 7 Exam Date: 12:51 PM Exam Name: XR CHEST 2V Admitt ing Diagno sis(es ): IMPRES GABRIEL: No acute intrat horaci c proces s. Create d and electr onical ly signed by: Pérez hernandez MD Signed Date: 1:00 PM (CT) Dictat ed by: Pérez hernandez MD DD: 1:00 PM (CT) DT: 1:00 PM (CT) Page 2 of 2 [facility] (Imaging) [address] [place], [address], 08/12/2023 09:07:55 02/17/20 23 02/13/2023 elect rocar diogr am No observ ation record ed. BARCODE [facility] [address], [place], [address], 02/16/2023 10:25:11 02/26/2002/25/2023 , echo ardio gram No observ ation record ed. [email or web address] [facility] [address] [place], [address], 03/16/2023 12:35:47 03/09/20 23 02/25/2023 cardi ac telem etry No observ ation record ed. [email or web address] [facility] [address] , [place], [address], 07/03/2023 09:21:10 04/16/2002/13/2023 elect joanna cobian am No observ ation record ed. BARCODE [facility] [address] [facility], [address], [place], [address], 04/16/2023 13:15:16 04/17/20 23 magaly maneu abhilash (PROC ) No observ ation record ed. [email or web address] [facility] [address], [place], [address], 04/17/2023 14:51:36 08/06/20 23 XR, shoul carolyn No observ ation record ed. [email or web address] [facility] [address] [facility], [address], [place], [address], 08/30/2023 15:23:38 Result Notes Documentation Provider Name and Address Organization Details Recorded Time Xr, Chest : [facility] [address] [place] [address] Patient Name: MACO ACOSTA Sparkle Sex: F : 1940 Location: [facility] Attending Physician: LUIS ANGEL DELGADO Ordering Physician: [...] fully imaged here. Page 1 of 2 [facility] Patient Name: MACO ACOSTA Sex: F : 1940 Exam Date: 02/13/2023 12:51 PM Exam Name: XR CHEST 2V Admitting Diagnosis(es): IMPRESSION: No acute intrathoracic process. Created and electronically signed by: Pérez Shields MD Signed Date: 02/13/2023 1:00 PM (CT) Dictated by: Pérez Shields MD (CT) (CT) Page 2 of 2 EMRE Se[place] [facility] [employer] 08/12/2023 09:07:55 Problems Name Problem SNOMED Code Status Onset Date Resolution Date Notes Provider Name and Address Organization Details Recorded Time Hyperchole sterolemia 84124459 Active Not Available [facility] 3 00:11:43 Acquired trigger finger 9368615 Active Not Available [facility] 3 00:11:43 Backache 164389448 Active Not Available [facility] 3 00:11:43 Radiothera py follow-up 585572081 Active Not Available [facility] 3 00:11:43 Localized, primary osteoarthr itis of the hand 045976115 Active Not Available [facility] 3 00:11:43 Localized, primary osteoarthr itis of the pelvic region and thigh 570546490 Active Not Available [facility] 3 00:11:43 Abdominal pain 16871764 Active Not Available [facility] 3 00:11:43 Radial styloid tenosynovi tis 95536045 Active Not Available [facility] 3 00:11:43 Pure hyperchole sterolemia 141956286 Active Not Available [facility] 3 00:11:43 Vaginal discharge 962476740 Active Not Available [facility] 3 00:11:43 Low back pain 596785019 Active Not Available [facility] 3 00:11:43 Enthesopat hy of hip region 72870589 Active Not Available [facility] 3 00:11:43 Osteopenia 656545597 Active Not Available [facility] 3 00:11:43 Migraine 92197266 Active Not Available [facility] 3 00:11:43 Osteoarthr itis 903961222 Active Not Available [facility] 3 00:11:43 Dizziness 815821705 Active Not Available [facility] 3 00:11:43 Pain of hip region 50114197 Active Not Available [facility] 3 00:11:43 Carpal tunnel syndrome 86437164 Active Not Available [facility] 3 00:11:43 Derangemen t of knee 03034642 Active Not Available [facility] 3 00:11:43 Rhinitis 80535090 Active Not Available [facility] 3 00:11:43 Degenerati on of interverte bral disc 15877930 Active Not Available [facility] 3 00:11:43 Fatigue 87889768 Active Not Available [facility] 3 00:11:43 Anxiety 39704437 Active 2017 Not Available [facility] 3 00:11:43 Neuropathy 037381110 Active 2019 Not Available [facility] 3 00:11:43 Foot pain 16073695 Active 2019 Not Available [facility] 3 00:11:43 Adult health examinatio n Active 2021 Not Available [facility] 3 00:11:43 Screening for malignant neoplasm of colon Active 2021 Not Available [facility] 3 00:11:43 Screening for disorder Active 2021 Not Available [facility] 3 00:11:43 Postmenopa usal state 94544363 Active 2021 Not Available [facility] 3 00:11:43 Pain of shoulder region 64336651 Active 2021 Not Available [facility] 3 00:11:43 Pain of left shoulder joint 1519844824341 9109 Active 2021 Not Available [facility] 3 00:11:43 Gastroesop hageal reflux disease without esophagiti s 483993890 Active 2021 Not Available [facility] 3 00:11:43 Pain of right shoulder joint 6360521866268 9100 Active 2021 Not Available [facility] 3 00:11:43 Finding of fluid behind tympanic membrane 863235118 Active 2022 Not Available [facility] 3 00:11:43 Allergic rhinitis 46488787 Active 2022 Not Available [facility] 3 00:11:43 Dysfunctio n of bilateral eustachian tubes 6705821777378 100 Active 2022 Not Available [facility] 3 00:11:43 Dyspnea 111418372 Active 2022 Not Available [facility] 3 00:11:43 Palpitatio ns 30682322 Active 2022 Not Available [facility] 3 00:11:43 Vertigo 973314218 Active 2022 Not Available [facility] 3 00:11:43 Benign paroxysmal positional vertigo 521380316 Active 2022 Not Available [facility] 3 00:11:43 Benign paroxysmal positional vertigo 049951711 Active 2022 Not Available [facility] 3 00:11:43 Dyspnea on exertion 62567507 Active 2022 Luis Angel Delgado MD [address], [address], [place], [address] , [facility] [facility] 3 21:06:12 Acute urinary tract infection 081773273 Active 2022 Sheela womack, [facility] [employer] [facility] 3 14:48:53 Neck pain 48231534 Active 2023 Luis Angel Delgado MD [address], [address], [place], [address] , [facility] [employer] [facility] 4 12:30:43 Notes:02-12-2018--last eye ex am Jun 2017 Some problems listed in Document: #[id number] could not be added to this patient's chart. Please review this document and add these problems to the patient's chart manually as needed. Problem Notes None recorded. Procedures Surgical History Date Name Laterality Status Provider Name and Address Organization Details Recorded Time 02/14/20 23 Medicare Wellness CPT Code, subsequent completed Suki Cole RN [facility] [employer] [facility] 02/13/2023 11:58:59 10/16/19 21 osteotomy and discectomy of cervical spine by anterior approach completed Not Available [facility] 12/03/2022 02:43:11 05/25/20 18 Total hip arthroplasty completed Not Available [facility] 12/03/2022 02:43:11 02/24/20 18 Most Recent Bone Density completed Not Available [facility] 12/03/2022 02:43:02 02/23/20 18 Date of Last Colonoscopy completed Not Available [facility] 12/03/2022 02:43:02 10/31/19 17 Orthopedic Surgery completed Not Available [facility] 12/03/2022 02:43:11 11/01/19 16 Carpal tunnel surgery completed Not Available [facility] 12/03/2022 02:43:11 Orthopedic Surgery completed Not Available [facility] 12/03/2022 02:43:11 Thyroid Surgery completed Not Available [facility] 12/03/2022 02:43:11 Cataract Surgery completed Not Available [facility] 12/03/2022 02:43:11 Breast Biopsy completed Not Available [facility] 12/03/2022 02:43:11 Hysterectomy completed Not Available [facility] 12/03/2022 02:43:11 Imaging Results None recorded. Procedure Notes None recorded. Medical Equipment None Reported. Allergies Allergen ID Allergen Name Allergen Category Reaction Reaction Severity Criticality Documentation Date Start Date Code Code System Note Provider Name and Address Organization Details Recorded Time 5035 Levaquin medicatio n vomiting Not available Not available 12/03/2022 03328 2 RxNorm n/v Not Available [facility] 3 03:06:18 5036 doxycycli ne Not available nausea mild Not available 12/03/2022 3640 RxNorm Not Available [facility] 3 03:06:18 5037 adhesive tape environme nt,medica tion Not available Not available Not available 12/03/2022 Not Available [facility] 3 03:06:18 5038 adhesive environme nt,medica tion rash Not available Not available 12/03/2022 Not Available [facility] 3 03:06:18 Medications Name Sig Start Date [...] administ ered by the provider 07/02 completed [facility]: [id number] -20 Not Available Not Available Not Available meclizine [...] administ ered by the provider 04/27 completed [facility]: 0409-427 6-17 Not Available Not Available Not Available lidocaine [...] Available Not Available Not Avai lable Fluvirin 9852-8099 45 mcg (15 mcg x 3)/0.5 mL intramusc ular suspensio n active Not Available Not Available Not Available Fluvirin 4927-8486 45 mcg (15 mcg x 3)/0.5 mL [...] Not Available Not Avai lable Fluzone High-Dose 2991-4231 (PF) 180 mcg/0.5 mL intramusc ular syringe [...] Updated DateTime 4 157.48 cm 26.5 kg/m2 23040.8 9 g 97.4 [degF] 65 /min 95 % 95 % 128/72 mm[Hg] Raina barajas CMA [facility] [employer] 4 12:17:51 Date Recorded Pain severity - 0-10 verbal numeric rating [Score] - Reported Provider Name and Address Organization Details Last Updated DateTime 02/13/2023 7 Suki Cole RN [facility] 02/13/2023 11:59:12 Date Recorded Body height Body mass index (BMI) Body weight Body temperature Heart rate Systolic And Diastolic Provider Name and Address Organization Details Last Updated DateTime 3 162.56 cm 25.4 kg/m2 57665.6 7 g 99.1 [degF] 64 /min 140/72 mm[Hg] Amrita Wang Kari [facility] 11:45:16 Date Recorded Body height Body mass index (BMI) Body weight Body temperature Provider Name and Address Organization Details Last Updated DateTime 03/26/2023 162.56 cm 25.6 kg/m2 11221.7 g 97.8 [degF] Cassandra Lechuga RN [facility] [employer] [facility] 03/26/2023 12:34:19 Date Recorded Body height Body mass index (BMI) Body weight Body temperature Heart rate Systolic And Diastolic Provider Name and Address Organization Details Last Updated DateTime 3 162.56 cm 25.1 kg/m2 72472.4 9 g 97.4 [degF] 69 /min 140/80 mm[Hg] Amrita Wang Kari [facility] 3 12:01:52 Date Recorded Body height Body mass index (BMI) Body weight Provider Name and Address Organization Details Last Updated DateTime 08/06/2023 157.48 cm 26.5 kg/m2 51444.89 g Cheyanne Peralta Kari [facility] 08/06/2023 15:01:11 Social History Question Answer Notes LastModified by Organization Details LastModified Time Tobacco Smoking Status Former Smoker quit age 45 Not Available [employer] 12/03/2022 02:29:04 Do You Have An Advance Directive? No MIGRATION.300 [id number] Information not available 12/03/2022 Are You Blind Or Do You Have Difficulty Seeing? No MIGRATION.030 134702 Information not available 12/03/2022 What Is Your Level Of Caffeine Consumption? Moderate MIGRATION.030 929897 Information not available 12/03/2022 How Much Tobacco Do You Chew? None MIGRATION.030 576191 Information not available 12/03/2022 In The 14 Days Before Symptom Onset, Have You Had Close Contact With A Laboratory-conf irmed COVID-19 While That Case Was Ill? No MIGRATION.030 576898 Information not available 12/03/2022 In The 14 Days Before Symptom Onset, Have You Had Close Contact With A Person Who Is Under Investigation For COVID-19 While That Person Was Ill? No MIGRATION.030 449424 Information not available 12/03/2022 Are You Deaf Or Do You Have Serious Difficulty Hearing? Yes Hearing Aid Bi Laterial MIGRATION.030 979650 Information not available 12/03/2022 What Type Of Diet Are You Following? REGULAR MIGRATION.030 586976 Information not available 12/03/2022 Which Illicit Or Recreational Drugs Have You Used? None MIGRATION.030 403180 Information not available 12/03/2022 What Is The Highest Grade Or Level Of School You Have Completed Or The Highest Degree You Have Received? CX29970-6 MIGRATION.300 826458 Information not available 12/03/2022 Have There Been Any Changes To Your Family Or Social Situation? No MIGRATION.030 488440 Information not available 12/03/2022 What Is The Fluoride Status Of Your Home? Unknown MIGRATION.030 626351 Information not available 12/03/2022 When Did You Quit Smoking? 18+yearssincelastc igarette MIGRATION.030 156513 Information not available 12/03/2022 Are There Any Guns Present In Your Home? No MIGRATION.030 187063 Information not available 12/03/2022 Do You Use Insect Repellent Routinely? No MIGRATION.030 087509 Information not available 12/03/2022 Where Do You [...] Do You Have A Medical Power Of Bulk Driver? No MIGRATION.0301 416235 Information not available 12/03/2022 What Was The Date Of Your Most Recent Tobacco Screening? 07/02/2023 [email or web address] Information not available 07/02/2023 Do You Have Any Pets? No MIGRATION.0301 435074 Information not available 12/03/2022 What Is Your Relationship Status? MIGRATION.0301 723600 Information not available 12/03/2022 Do You Use Your Seat Belt Or Car Seat Routinely? Yes MIGRATION.0301 618326 Information not available 12/03/2022 Do You Have Smoke And Carbon Monoxide Detectors In Your Home? Yes MIGRATION.0301 286072 Information not available 12/03/2022 Are You Passively Exposed To Smoke? No MIGRATION.0301 572452 Information not available 12/03/2022 Are There Any Smokers In Your House? No MIGRATION.0301 715710 Information not available 12/03/2022 How Much Tobacco Do You Smoke? No MIGRATION.0301 483402 Information not available 12/03/2022 Do You Use Sunscreen Routinely? No MIGRATION.0301 995024 Information not available 12/03/2022 Has Tobacco Cessation Counseling Been Provided? No MIGRATION.0301 723959 Information not available 12/03/2022 How Many Years Have You Smoked Tobacco? 20 MIGRATION.0301 138347 Information not available 12/03/2022 Have You Recently Traveled Abroad? No MIGRATION.0301 229326 Information not available 12/03/2022 Do You Have Difficulty Walking Or Climbing Stairs? Yes MIGRATION.0301 886718 Information not available 12/03/2022 Do You Have Any Dietary Restrictions? No Information not available 02/13/2023 Sex: Female Functional Status Question Answer Note LastModified by Organizat ion Details LastModified Time Do you use any illicit or recreational drugs? No MIGRATION.300382 7319 Information not available 12/03/2022 Do you or have you ever used any other forms of tobacco or nicotine? No MIGRATION.555993 1730 Information not available 12/03/2022 What is your level of alcohol consumption? None MIGRATION.613241 9080 Information not available 12/03/2022 Do you or have you ever used smokeless tobacco? Never used smokeless tobacco MIGRATION.074694 8476 Information not available 12/03/2022 Do you have transportation difficulties? No MIGRATION.207424 0666 Information not available 12/03/2022 Are you able to walk independently without assistance or assistive devices? YESWOREST Information not available 02/13/2023 Do you have difficulty doing errands alone? No Information not available 02/13/2023 Are you able to care for yourself independently? Yes MIGRATION.599634 9634 Information not available 12/03/2022 What is your occupation? retired MIGRATION.507662 9009 Information not available 12/03/2022 Do you have difficulty dressing, bathing, grooming, or toileting? No MIGRATION.509356 3030 Information not available 12/03/2022 Do you or have you ever used e-cigarettes or vape? Never used electronic cigarettes MIGRATION.568344 8483 Information not available 12/03/2022 What is your exercise level? Occasional Information not available 02/13/2023 Mental Status Question Answer Note LastModified by Organizat ion Details LastModified Time Do you feel stressed (tense, restless, nervous, or anxious, or unable to sleep at night)? [id number] MIGRATION.[id number] 26 Information not available 12/03/2022 Do you have difficulty concentrating, remembering or making decisions? No MIGRATION.56354447 26 Information not available 12/03/2022 Family History Relationship Description Onset Age of this Age Resolved Age Notes LastModified by Organization Details LastModified Time Mother Hypertensive disorder MIGRATION.559 [id number] Not available 12/03/2022 02:43:13 Mother Family history of stroke MIGRATION.468 [id number] Not available 12/03/2022 02:43:13 Father Amyotrophic lateral sclerosis MIGRATION.226 [id number] Not available 12/03/2022 02:43:13 Sister Malignant lymphoma 78 MIGRATION.754 [id number] Not available 12/03/2022 02:43:14 Notes:NO ENT Medical History Condition Response NERVE DISEASE Y BLINDNESS N RHEUMATIC FEVER N KIDNEY STONES N BLADDER PROBLEMS N MRSA N CARPAL TUNNEL SYNDROME N OTHER # 1 Y POLIO N LUNG DISEASE/DISORDER N HISTORY OF DRUG ABUSE N RADIATION / CHEMOTHERAPY N COPD N Other # 2 N SPORTS INJURY [...] HAVE YOU BEEN HOSPITALIZED OR SEEN IN [facility] IN THE PAST YEAR ? Y [...] influenza, unspecified formulation 2 completed Not Available [facility] 06/16/2023 04:21:25 COVID-19, mRNA, LNP-S, PF, 30 mcg/0.3 mL dose 2 completed Not Available [facility] 06/16/2023 04:21:25 COVID-19, mRNA, LNP-S, PF, 30 mcg/0.3 mL dose 2 completed Not Available [facility] 06/16/2023 04:21:25 COVID-19 vaccine, vector-nr, rS-Ad26, PF, 0.5 mL 1 completed Not Available [facility] 06/16/2023 04:21:25 Influenza, split virus, trivalent, preservative 9 completed Not Available [facility] 06/16/2023 04:21:26 Influenza, high-dose, trivalent, PF 8 completed Not Available [facility] 06/16/2023 04:21:25 Influenza, high-dose, trivalent, PF 7 completed Not Available [facility] 06/16/2023 04:21:25 Influenza, high-dose, trivalent, PF 6 completed Not Available [facility] 06/16/2023 04:21:26 COVID-19 vaccine, vector-nr, rS-ChAdOx1, PF, 0.5 mL 1 completed Not Available [facility] 06/16/2023 04:21:25 pneumococcal polysaccharide PPV23 2 completed Not Available [facility] 06/16/2023 04:21:25 zoster live 4 completed Not Available [facility] 06/16/2023 04:21:25 Influenza, high-dose, quadrivalent, PF 1 completed Not Available [facility] 06/16/2023 04:21:25 Influenza, high-dose, quadrivalent, PF 0 completed Not Available [facility] 06/16/2023 04:21:25 Pneumococcal conjugate PCV 13 6 completed Not Available [facility] 06/16/2023 04:21:25 Past Encounters Encounter ID Performer Location Encounter Start Date Encounter Closed Date Diagnosis/Indication Diagnosis SNOMED-CT Code Diagnosis ICD10 Code Diagnosis IMO Codes Diagnosis Note [id number] Luis Angel Delgado MD [facility] [address] [place] [address] 12/14/2020 00:00:00 12/14/2020 21:49:10 [id number] Luis Angel Deglado MD [facility] [place] [facility] [address] [place] [address] 04/12/2021 00:00:00 04/13/2021 21:25:52 [id number] Daniel Mo MD [facility] [address] [place] [address] 07/19/2021 00:00:00 07/19/2021 13:00:41 [id number] Luis Angel Delgado MD [facility] Med [facility] [address] [place] [address] 1 08/09/2021 00:00:00 08/18/2021 22:20:38 [id number] Luis Angel Delgado MD [facility] Internal Med [facility] [address] [place] [address] 1 12/06/2021 00:00:00 12/29/2021 16:56:16 [id number] Luis Angel Delgado MD [facility] Med [address] [address] 03/11/2022 00:00:00 03/11/2022 18:36:46 [id number] Daniel Mo MD [facility] [place] [address] [place] [address] 03/26/2022 00:00:00 03/26/2022 15:28:00 [id number] Luis Angel Delgado MD [facility] Internal Med [facility] [address] [facility], [address] [address] 04/11/2022 00:00:00 05/05/2022 22:41:13 [id number] Daniel Mo MD [facility] [place] [address] [place] [address] 07/09/2022 00:00:00 07/10/2022 09:45:36 [id number] Luis Angel Delgado MD [facility] Internal Med [facility] [address] [address] 08/15/2022 00:00:00 08/16/2022 17:54:56 [id number] Daniel Mo MD [facility] [place] [address] [place] [address] 08/20/2022 00:00:00 08/20/2022 11:52:25 [id number] Jose Gary MD [facility] [place] [address] [place], [place] [address] [place] [address] 11/18/2022 00:00:00 11/18/2022 12:42:03 [id number] Luis Angel Delgado MD [facility] Internal Med [facility] [address] [facility], [address] [address] 02/13/2023 11:14:36 02/13/2023 12:32:05 Anxiety 69844582 F41.9 Adult [facility] th examination 118233802 Z00.00 Screening for disorder 039800062 Z13.9 Dyspnea 599391059 R06.00 Hypercholesterolemia 136 98808 E78.00 Palpitations 78660253 R0 0.2 Vertigo 977093016 R42 [id number] Jose Gary MD [facility] [place] [address] [place] [address] 03/26/2023 12:25:43 03/26/2023 12:46:16 Benign paroxysmal positional vertigo 581095832 H81.10 [id number] Luis Angel Delgado MD [facility] Internal Med [address] [facility], [facility] 15 [place] [address] 07/02/2023 11:29:29 07/02/2023 12:55:10 Gastroesophageal reflux disease without esophagitis 178981192 K21.9 Anxiety 13255024 F41.9 Benign par oxysmal positional vertigo 998220043 H81.10 Hypercholesterolemia 136 68922 E78.00 Migraine 79581421 G43.90 9 Dyspnea on exertion 6084 5006 R06.09 [id number] Daniel Mo MD [facility] [address] [facility], [address] [place] [address] 08/06/2023 14:15:56 08/31/2023 10:47:01 Pain of right shoulder joint 1539770381 6860805 M25.833 [id number] Luis Angel Delgado MD [facility] Internal Med [facility] 15 [address] [facility], [facility] 15 [place] [address] 10/28/2023 10:57:22 10/28/2023 12:23:41 Gastroesophageal reflux disease without esophagitis 021071371 K21.9 Anxiety 10777760 F41.9 Pure hypercholesterolemia 623468623 E78.00 Neuropathy 637081604 G62 .9 Migraine 33417581 G43.90 9 Neck pain 28354521 M54.2 Health Concerns Section Related Observation LastModified by Organization Detai ls LastModified Time None Recorded Concern Status LastModified by Organization Details LastModified Time None Recorded Advance Directives Directive N: Payers Insurance Date Sequence Insurance Name Policy Number Policy Lee Covered Member ID Lee Member ID Guarantor Name 03/07/2025 1 [place] Maco Acosta [id number] Maco Acosta 03/07/2025 2 CIG[employer] SUPPLEMENTAL - [employer]URANCE (MEDICARE SUPPLEMENT) Maco Acosta [id number] Maco Acosta Notes Date Note Type Note Provider Name and Address Organization Details Recorded Time 02/13/2023 text/html Some persistent vertigoOccasional dyspnea some arrest some notDyslipidemia trying to follow low-fat dietOccasional palpitation but no syncope or presyncopeAnxiety stableMigraine stable Luis Angel Delgado MD [address], [place], [address], [employer] [facility] 03/01/2023 14:26:52 03/26/2023 text/html this patient has had positional vertigo for 8 years. She reports having had an MRI which was normal and a carotid Doppler which was also normal. She has not had any balance test Jose Gary MD [address], [place], [address], [employer] [facility] 03/26/2023 12:45:07 07/02/2023 text/html Some persistent vertigoOccasional dyspnea no chest pain saw cardiology who she said ordered a bunch of tests test none of which she wants to pursueDyslipidemia trying to follow low-fat dietOccasional palpitation but no syncope or presyncopeAnxiety stableMigraine stable Luis Angel Delgado MD [address], [place], [address], [employer] [facility] 07/12/2023 21:06:41 08/06/2023 text/html Patient returns. She [...] shoulder with use. Daniel Mo MD [address], [place], [address], [employer] [facility] 08/30/2023 15:25:25 10/28/2023 text/html Some persistent vertigoOccasional dyspnea no chest pain saw cardiology who she said ordered a bunch of tests test none of which she wants to pursueDyslipidemia trying to follow low-fat dietOccasional palpitation but no syncope or presyncopeAnxiety stableMiyareli Campbell has some back spasm from time to time with her neck Luis Angel Delgado MD [address] [facility], [facility] [address], [place], [address], [facility] 11/03/2023 22:01:15 OBGyn Episode No OBEpisode recorded.
--- OUTSIDE RECORDS SUMMARY | 2025-07-21 08:57 | XMS_ITS | Clinical Summary ---
Author Organization [facility] Address [address] [place] [address] Care Team Providers Care Financial Aid Counselor Name Role Phone Jose Maria Delgado MD Primary Care Provider [phone]- [phone] Ashley Day NP Unavailable Allergies Active Allergy [...] (10/16/2020): Added automatically from request for surgery [id number] Immunizations Immunization Administration Dates Next Due Influenza, Quadrivalent, Hig h Dose, Preservative Free, Intrr 07/10/2020 Influenza, Trivalent, High D ose, Split, Preservative Free, Intramuscular 07/01/2018,06/23/2017,07/22/2016 Influenza, Trivalent, IM (MDV) 07/19/2019 Influenza, Unspecified 07/10/2020 Habbits (J&J) SARS-CoV-2 Vaccination 12/13/2020 Pneumococcal Conjugate PCV [...] on file Legal Sex Female 7:54 AM TAILER IN Gender Identity Not on file Sexual Orientation Not on file Obstetrics History Last Filed Vital Signs Vital Sign Reading Time Taken Comments Blood Pressure 111/85 10/18/2020 9:47 AM TAILER IN Pulse 73 10/18/2020 9:47 AM TAILER IN Temperature 36.6 C (97.9 F) 10/18/2020 3:27 AM TAILER IN Respiratory Rate 18 10/18/2020 3:27 AM TAILER IN Oxygen Saturation 92% 10/18/2020 9:47 AM TAILER IN Inhaled Oxygen Concentration - - Weight 67.6 [...] Assessment 10/18/2021 10/18/2020 Covid-19 Vaccine (2 - 2024-2 6 season) 2025 12/13/2020 Influenza Vaccine (#1) 2025 , 07/10/2020, 07/19/2019, Additional history exists Pneumococcal vaccine 65+ Completed 09/25/2016, 10/2011 Medical Devices Implanted Type Area Director Television News Device Identifier Shelf Expiration Date Model / Serial / Lot Spinal Graft Tech [id number] [place] 1.5x1.5cm Flex Graft Bone Demineralized Bone Matrix - [id number] - [id number] Implanted:Qty: 1 on 10/17/2020 by Jose Maria Vines MD at [facility] N/A: Spine Cervical [employer] 04/30/2023 [id number] / [id number] / Musculoskeletal Transplant [id number] Frozen Spine 7d Lordotic Trapezoid Spacer Allograft - [id number] - [id number] Implanted:Qty: 1 on 10/17/2020 by Jose Maria Vines MD at [facility] N/A: Spine Cervical Musculoskeletal Transplant 04/05/2025 [id number] / [id number] / [employer] [id number] Maxan 9mm Cervical Spine Plate Bone - [id number] Implanted:Qty: 1 on 10/17/2020 by Jose Maria Vines MD at [facility] N/A: Spine Cervical [employer] [id number] / / [employer] [id number] 4mm 16mm Fix Screw Bone - [id number] Implanted:Qty: 2 on 10/17/2020 by Jose Maria Vines MD at [facility] N/A: Spine Cervical [employer] [id number] / / [employer] [id number] Maxan 4.5mm 14mm Fix Angle Spine Screw Bone - [id number] Implanted:Qty: 2 on 10/17/2020 by Jose Maria Vines MD at [facility] N/A: Spine Cervical [employer] [id number] / / Insurance MEDICARE [facility] MEDICARE [place] [address] [place] [address] MEDICARE CIG MEDICARE SUPPLEMENT INSURANCE MEDICARE MEDICARE Advance Directives For more information, please contact: [phone] * Full Code (Latest Code Status on File) Date Activated Date Inactivated Comments 10/17/2020 10:46 AM 10/18/2020 6:15 PM * Full Code Date Activated Date Inactivated Comments 10/16/2020 1:21 PM 10/17/2020 10:46 AM Care Teams Financial Aid Counselor Relationship Specialty Start Date End Date Jose Maria Delgado MD PCP - General Internal Medicine 10/11/20 Ashley Day NP Nurse Practitioner Orthopedic Surgery 10/18/20
--- OUTSIDE RECORDS SUMMARY | 2025-07-21 08:58 | XMS_ITS | Data Portability ---
Author Organization 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 Name Role Phone LUIS ANGEL DELGADO Primary Care Provider Unavailabl e Assessment Encounter Date Assessment Date Assessment LastModified by Organization Details LastModified Time 01/06/2024 01/06/2024 EKG machine nonfunction cardiology referral for palpitations blood work for hyperlipidemia continue medications for medical problems all questions have been answered management of her problems lipid discussed as well follow-up with me in 4 months obtain old records [email or web address] Not available 02/04/2024 08:41:06 05/03/2024 05/03/2024 discussed problems and assessment and plan they have been stable we will continue current medical management all questions answered she will see me back in 4 months [email or web address] Not available 05/05/2024 22:55:04 08/30/2024 08/30/2024 We will continue current therapy high healthy lifestyle care instructions blood work order diagnosis discussed all questions answered follow up 4 months Not available 09/03/2024 21:10:22 01/18/2025 01/18/2025 Continue [...] to the ER. Records from hospital reviewed [email or web address] Not available 02/03/2025 22:05:32 Plan of Treatment Reminders Order Date Submit Date Provider Last Modified By Organization Details Last Modified Time Details Appointments None recorded. Lab CBC w/ auto diff 2024 025 [facility], [address], [place], [address], 5 09:10:16 CMP, serum or plasma 2024 025 [facility], [address], [place], [address], 5 09:10:14 lipid panel, serum 2024 025 [facility], [address], [place], [address], 5 09:10:13 lipid panel, serum 2023 024 [facility], [address], [place], [address], 4 08:31:10 CBC w/ auto diff 2023 024 [facility], [address], [place], [address], 4 08:31:13 CMP, serum or plasma 2023 024 [facility], [address], [place], [address], 4 08:31:11 CBC w/ auto diff 2023 024 [facility], [address], [place], [address], 4 08:29:40 TSH, ultra-sensi tive, serum 2023 024 [facility], [address], [place], [address], 4 08:29:39 unlisted lab - T4, free 2023 024 [facility], [address], [place], [address], 4 08:29:38 T3, free, serum or plasma 2023 024 [facility], [address], [place], [address], 4 08:29:41 lipid panel, serum 2023 [facility], [address], [place], [address], 4 08:29:37 CMP, serum or plasma 2023 024 [facility], [address], [place], [address], 4 08:29:39 Referral vestibular therapy referral 2024 025 [facility], [address], [place], [address], 5 22:10:17 cardiologis t referral 2023 024 arabella Colvin, [address], [address], [place], [address], 5 14:03:53 Procedures None recorded. Surgeries None recorded. Imaging None recorded. Medication Orders cephalexin 500 mg tablet 2024 025 [id number], [address], [place], [place], [id number], 5 11:30:16 halobetasol propionate 0.05 % topical cream 2024 025 [email or web address] [facility] #[id number], [address], [place], [place], [id number], 16:10:41 Patient TargetsNo targets recorded. 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 Pattern Layout Technician Referral for Pa lpitations Referring Physician: Luis Angel Delgado, Internal Medicine, Encounter Date: 01/06/2024 Vestibular Therapy Referral for Vertigo Referring Physician: Luis Angel Delgado, Internal Medicine, Encounter Date: 01/18/2025 Results Created Date Observation Date Name Description Value Unit Range Abnormal Flag Note LastModifiedBy Organization Detail LastModifiedTime 01/27/2001/28/2024 LIPID PANEL cholesterol, total 156 mg/dL 100-19 9 Not Available [facility] ([facility]) [address] [facility], [place], [address], 01/28/2024 08:29:37 01/27/2001/28/2024 LIPID PANEL triglyceride s 380 mg/dL 0-149 above high normal Not Available [facility] ([facility]) [address] [facility], [place], [address], 01/28/2024 08:29:37 01/27/20 24 01/28/2024 LIPID PANEL HDL cholesterol 43 mg/dL >39 Not Available [facility]) [address] [place], [address], 01/28/2024 08:29:37 01/27/20 24 01/28/2024 LIPID PANEL VLDL cholesterol lo 58 mg/dL 5-40 above high normal Not Available [facility] ([facility]) [address] [place], [address], 01/28/2024 08:29:37 01/27/20 24 01/28/2024 LIPID PANEL LDL chol calc (rust) 55 mg/dL 0-99 Not Available [facility]) [address] [facility] [place], [address], 01/28/2024 08:29:37 01/27/20 24 01/28/2024 T4, FREE T4,free(dire ct) 0.98 NG/dL 0.82-1 .77 Not Available [facility] ([facility]) [address] [place], [address], 01/28/2024 08:29:38 01/27/20 24 01/28/2024 COMP. METAB OLIC PANEL (14) glucose 74 mg/dL 70-99 Not Available [facility] ([facility]) [address] [place], [address], 01/28/2024 08:29:39 01/27/20 24 01/28/2024 COMP. METAB OLIC PANEL (14) BUN 16 mg/dL 8-27 Not Available [facility] ([facility]) [address] [place], [address], 01/28/2024 08:29:39 01/27/20 24 01/28/2024 COMP. METAB OLIC PANEL (14) creatinine 0.68 mg/dL 0.57-1 .00 Not Available [facility] ([facility]) [address] [place], [address], 01/28/2024 08:29:39 01/27/20 24 01/28/2024 COMP. METAB OLIC PANEL (14) eGFR 87 mL/mi n/1.7 3 >59 Not Available [facility] ([facility]) [address] [facility], [place], [address], 01/28/2024 08:29:39 01/27/20 24 01/28/2024 COMP. METAB OLIC PANEL (14) BUN/creatini ne ratio 24 - Not Available [facility]) [address] [facility], [place], [address], 01/28/2024 08:29:39 01/27/20 24 01/28/2024 COMP. METAB OLIC PANEL (14) sodium 140 mmol/ L 134-14 4 Not Available [facility] ([facility]) [address] [facility], [place], [address], 01/28/2024 08:29:39 01/27/20 24 01/28/2024 COMP. METAB OLIC PANEL (14) potassium 4.4 mmol/ L 3.5-5. 2 Not Available [facility] ([facility]) [address] [facility], [place], [address], 01/28/2024 08:29:39 01/27/20 24 01/28/2024 COMP. METAB OLIC PANEL (14) chloride 104 mmol/ L 96-106 Not Available [facility] ([facility]) [address] [facility], [place], [address], 01/28/2024 08:29:39 01/27/20 24 01/28/2024 COMP. METAB OLIC PANEL (14) carbon dioxide, total 23 mmol/ L 20-29 Not Available [facility] ([facility]) [address] [facility], [place], [address], 01/28/2024 08:29:39 01/27/20 24 01/28/2024 COMP. METAB OLIC PANEL (14) calcium 9.1 mg/dL 8.7-10 .3 Not Available [facility] ([facility]) [address], [place], [address], 01/28/2024 08:29:39 01/27/20 24 01/28/2024 COMP. METAB OLIC PANEL (14) protein, total 6.6 g/dL 6.0-8. 5 Not Available [facility] ([facility]) [address] [place], [address], 01/28/2024 08:29:39 01/27/20 24 01/28/2024 COMP. METAB OLIC PANEL (14) albumin 4.1 g/dL 3.7-4. 7 Not Available [facility] ([facility]) [address] [place], [address], 01/28/2024 08:29:39 01/27/20 24 01/28/2024 COMP. METAB OLIC PANEL (14) globulin, total 2.5 g/dL 1.5-4. 5 Not Available [facility] ([facility]) [address] [place], [address], 01/28/2024 08:29:39 01/27/20 24 01/28/2024 COMP. METAB OLIC PANEL (14) A/G ratio 1.6 1.2-2. 2 Not Available [facility] ([facility]) [address] [facility] [place], [address], 01/28/2024 08:29:39 01/27/20 24 01/28/2024 COMP. METAB OLIC PANEL (14) bilirubin, total 0.3 mg/dL 0.0-1. 2 Not Available [facility] ([facility]) [address] [facility] [place], [address], 01/28/2024 08:29:39 01/27/20 24 01/28/2024 COMP. METAB OLIC PANEL (14) alkaline phosphatase 49 IU/L 44-121 Not Available [facility]) [address] [facility], [place], [address], 01/28/2024 08:29:39 01/27/20 24 01/28/2024 COMP. METAB OLIC PANEL (14) AST (SGOT) 29 IU/L 0-40 Not Available [facility] ([facility]) [address] [facility] [place], [address], 01/28/2024 08:29:39 01/27/20 24 01/28/2024 COMP. METAB OLIC PANEL (14) ALT (SGPT) 31 IU/L 0-32 Not Available [facility] ([facility]) [address] [facility] [place], [address], 01/28/2024 08:29:39 01/27/20 24 01/28/2024 TSH TSH 3.310 uIU/m L 0.450- 4.500 Not Available [facility] ([facility]) [address] [facility], [place], [address], 01/28/2024 08:29:39 01/27/20 24 01/28/2024 CBC WITH DIFFE RENTI AL/PL ATELE T WBC 7.8 x10e3 /uL 3.4-10 .8 Not Available [facility] ([facility]) [address] [place], [address], 01/28/2024 08:29:40 01/27/20 24 01/28/2024 CBC WITH DIFFE RENTI AL/PL ATELE T RBC 4.41 x10e6 /uL 3.77-5 .28 Not Available [facility] ([facility]) [address] [place], [address], 01/28/2024 08:29:40 01/27/20 24 01/28/2024 CBC WITH DIFFE RENTI AL/PL ATELE T hemoglobin 13.9 g/dL 11.1-1 5.9 Not Available [facility] ([facility]) [address] [place], [address], 01/28/2024 08:29:40 01/27/20 24 01/28/2024 CBC WITH DIFFE RENTI AL/PL ATELE T hematocrit 41.9 % 34.0-4 6.6 Not Available [facility] ([facility]) [address] [facility], [place], [address], 01/28/2024 08:29:40 01/27/2001/28/2024 CBC WITH DIFFE RENTI AL/PL ATELE T MCV 95 fL 79-97 Not Available [facility] ([facility]) [address] [facility], [place], [address], 01/28/2024 08:29:40 01/27/2001/28/2024 CBC WITH DIFFE RENTI AL/PL ATELE T MCH 31.5 pg 26.6-3 3.0 Not Available [facility] ([facility]) [address] [facility], [place], [address], 01/28/2024 08:29:40 01/27/2001/28/2024 CBC WITH DIFFE RENTI AL/PL ATELE T MCHC 33.2 g/dL 31.5-3 5.7 Not Available [facility] ([facility]) [address] [facility], [place], [address], 01/28/2024 08:29:40 01/27/2001/28/2024 CBC WITH DIFFE RENTI AL/PL ATELE T RDW 13.0 % 11.7-1 5.4 Not Available [facility] ([facility]) [address] [facility], [place], [address], 01/28/2024 08:29:40 01/27/2001/28/2024 CBC WITH DIFFE RENTI AL/PL ATELE T platelets 244 x10e3 /uL 150-45 0 Not Available [facility] ([facility]) [address] [facility], [place], [address], 01/28/2024 08:29:40 01/27/20 24 01/28/2024 CBC WITH DIFFE RENTI AL/PL ATELE T neutrophils 47 % notest ab. Not Available [facility] ([facility]) [address] [facility], [place], [address], 01/28/2024 08:29:40 01/27/20 24 01/28/2024 CBC WITH DIFFE RENTI AL/PL ATELE T lymphs 34 % notest ab. Not Available [facility] ([facility]) [address] [facility], [place], [address], 01/28/2024 08:29:40 01/27/20 24 01/28/2024 CBC WITH DIFFE RENTI AL/PL ATELE T monocytes 13 % notest ab. Not Available [facility] ([facility]) [address] [facility], [place], [address], 01/28/2024 08:29:40 01/27/20 24 01/28/2024 CBC WITH DIFFE RENTI AL/PL ATELE T eos 5 % notest ab. Not Available [facility] ([facility]) [address] [facility], [place], [address], 01/28/2024 08:29:40 01/27/20 24 01/28/2024 CBC WITH DIFFE RENTI AL/PL ATELE T basos 1 % notest ab. Not Available [facility] ([facility]) [address] [facility], [place], [address], 01/28/2024 08:29:40 01/27/20 24 01/28/2024 CBC WITH DIFFE RENTI AL/PL ATELE T neutrophils (absolute) 3.7 x10e3 /uL 1.4-7. 0 Not Available [facility] ([facility]) [address] [facility], [place], [address], 01/28/2024 08:29:40 01/27/20 24 01/28/2024 CBC WITH DIFFE RENTI AL/PL ATELE T lymphs (absolute) 2.7 x10e3 /uL 0.7-3. 1 Not Available [facility] ([facility]) [address] [facility], [place], [address], 01/28/2024 08:29:40 01/27/2001/28/2024 CBC WITH DIFFE RENTI AL/PL ATELE T monocytes(ab solute) 1.0 x10e3 /uL 0.1-0. 9 above high normal Not Available [facility] ([facility]) [address] [facility], [place], [address], 01/28/2024 08:29:40 01/27/2001/28/2024 CBC WITH DIFFE RENTI AL/PL ATELE T eos (absolute) 0.4 x10e3 /uL 0.0-0. 4 Not Available [facility] ([facility]) [address] [facility], [place], [address], 01/28/2024 08:29:40 01/27/2001/28/2024 CBC WITH DIFFE RENTI AL/PL ATELE T baso (absolute) 0.1 x10e3 /uL 0.0-0. 2 Not Available [facility] ([facility]) [address] [facility], [place], [address], 01/28/2024 08:29:40 01/27/2001/28/2024 CBC WITH DIFFE RENTI AL/PL ATELE T immature granulocytes 0 % notest ab. Not Available [facility] ([facility]) [address] [place], [address], 01/28/2024 08:29:40 01/27/2001/28/2024 CBC WITH DIFFE RENTI AL/PL ATELE T immature grans (abs) 0.0 x10e3 /uL 0.0-0. 1 Not Available [facility] ([facility]) [address] [place], [address], 01/28/2024 08:29:40 01/27/2001/28/2024 TRIIO DOTHY CHENG E (T3), FREE triiodothyro nine (T3), free 2.6 pg/mL 2.0-4. 4 Not Available [facility] ([facility]) [address] [place], [address], 01/28/2024 08:29:41 08/30/20 24 08/31/2024 LIPID PANEL cholesterol, total 169 mg/dL 100-19 9 Not Available [facility] ([facility]) [address] [place], [address], 08/31/2024 08:31:10 08/30/2008/31/2024 LIPID PANEL triglyceride s 317 mg/dL 0-149 above high normal Not Available [facility] ([facility]) [address] [place], [address], 08/31/2024 08:31:10 08/30/20 24 08/31/2024 LIPID PANEL HDL cholesterol 47 mg/dL >39 Not Available [facility]) [address] [place], [address], 08/31/2024 08:31:10 08/30/20 24 08/31/2024 LIPID PANEL VLDL cholesterol lo 50 mg/dL 5-40 above high normal Not Available [facility] ([facility]) [address] [place], [address], 08/31/2024 08:31:10 08/30/2008/31/2024 LIPID PANEL LDL chol calc (rust) 72 mg/dL 0-99 Not Available [facility]) [address] [place], [address], 08/31/2024 08:31:10 08/30/20 24 08/31/2024 COMP. METAB OLIC PANEL (14) glucose 94 mg/dL 70-99 Not Available [facility] ([facility]) [address] [facility] [place], [address], 08/31/2024 08:31:11 08/30/20 24 08/31/2024 COMP. METAB OLIC PANEL (14) BUN 17 mg/dL 8-27 Not Available [facility] ([facility]) [address] [facility] [place], [address], 08/31/2024 08:31:11 08/30/20 24 08/31/2024 COMP. METAB OLIC PANEL (14) creatinine 0.65 mg/dL 0.57-1 .00 Not Available [facility] ([facility]) [address] [facility] [place], [address], 08/31/2024 08:31:11 08/30/20 24 08/31/2024 COMP. METAB OLIC PANEL (14) eGFR 88 mL/mi n/1.7 3 >59 Not Available [facility] ([facility]) [address] [facility] [place], [address], 08/31/2024 08:31:11 08/30/20 24 08/31/2024 COMP. METAB OLIC PANEL (14) BUN/creatini ne ratio 26 12-28 Not Available [facility]) [address] [facility] [place], [address], 08/31/2024 08:31:11 08/30/20 24 08/31/2024 COMP. METAB OLIC PANEL (14) sodium 138 mmol/ L 134-14 4 Not Available [facility] ([facility]) [address] [facility] [place], [address], 08/31/2024 08:31:11 08/30/20 24 08/31/2024 COMP. METAB OLIC PANEL (14) potassium 4.7 mmol/ L 3.5-5. 2 Not Available [facility] ([facility]) [address] [facility] [place], [address], 08/31/2024 08:31:11 08/30/20 24 08/31/2024 COMP. METAB OLIC PANEL (14) chloride 102 mmol/ L 96-106 Not Available [facility] ([facility]) [address] [facility], [place], [address], 08/31/2024 08:31:11 08/30/20 24 08/31/2024 COMP. METAB OLIC PANEL (14) carbon dioxide, total 24 mmol/ L 20-29 Not Available [facility] ([facility]) [address] [facility], [place], [address], 08/31/2024 08:31:11 08/30/20 24 08/31/2024 COMP. METAB OLIC PANEL (14) calcium 9.5 mg/dL 8.7-10 .3 Not Available [facility] ([facility]) [address] [facility], [place], [address], 08/31/2024 08:31:11 08/30/20 24 08/31/2024 COMP. METAB OLIC PANEL (14) protein, total 7.1 g/dL 6.0-8. 5 Not Available [facility] ([facility]) [address] [facility], [place], [address], 08/31/2024 08:31:11 08/30/20 24 08/31/2024 COMP. METAB OLIC PANEL (14) albumin 4.1 g/dL 3.7-4. 7 Not Available [facility] ([facility]) [address] [facility] [place], [address], 08/31/2024 08:31:11 08/30/20 24 08/31/2024 COMP. METAB OLIC PANEL (14) globulin, total 3.0 g/dL 1.5-4. 5 Not Available [facility] ([facility]) [address] [facility] [place], [address], 08/31/2024 08:31:11 08/30/20 24 08/31/2024 COMP. METAB OLIC PANEL (14) bilirubin, total <0.2 mg/dL 0.0-1. 2 Not Available [facility] ([facility]) [address] [facility], [place], [address], 08/31/2024 08:31:11 08/30/20 24 08/31/2024 COMP. METAB OLIC PANEL (14) alkaline phosphatase 54 IU/L 44-121 Not Available [facility]) [address] [facility], [place], [address], 08/31/2024 08:31:11 08/30/20 24 08/31/2024 COMP. METAB OLIC PANEL (14) AST (SGOT) 25 IU/L 0-40 Not Available [facility] ([facility]) [address] [facility], [place], [address], 08/31/2024 08:31:11 08/30/20 24 08/31/2024 COMP. METAB OLIC PANEL (14) ALT (SGPT) 28 IU/L 0-32 Not Available [facility] ([facility]) [address] [facility], [place], [address], 08/31/2024 08:31:11 08/30/20 24 08/31/2024 CBC WITH DIFFE RENTI AL/PL ATELE T WBC 8.4 x10e3 /uL 3.4-10 .8 Eff ectiv e Decem kirby 2023 profi jimmy [id number] 5 WBC will be made* * non-o rdera ble as a stand -ronni e order code. Not Available [facility] ([facility]) [address] [facility], [place], [address], 08/31/2024 08:31:12 08/30/20 24 08/31/2024 CBC WITH DIFFE RENTI AL/PL ATELE T RBC 4.52 x10e6 /uL 3.77-5 .28 Not Available [facility] ([facility]) [address] [facility], [place], [address], 08/31/2024 08:31:12 08/30/20 24 08/31/2024 CBC WITH DIFFE RENTI AL/PL ATELE T hemoglobin 14.7 g/dL 11.1-1 5.9 Not Available [facility] ([facility]) [address] [place], [address], 08/31/2024 08:31:12 08/30/20 24 08/31/2024 CBC WITH DIFFE RENTI AL/PL ATELE T hematocrit 43.4 % 34.0-4 6.6 Not Available [facility] ([facility]) [address] [place], [address], 08/31/2024 08:31:12 08/30/20 24 08/31/2024 CBC WITH DIFFE RENTI AL/PL ATELE T MCV 96 fL 79-97 Not Available [facility] ([facility]) [address] [facility], [place], [address], 08/31/2024 08:31:12 08/30/20 24 08/31/2024 CBC WITH DIFFE RENTI AL/PL ATELE T MCH 32.5 pg 26.6-3 3.0 Not Available [facility] ([facility]) [address] [place], [address], 08/31/2024 08:31:12 08/30/20 24 08/31/2024 CBC WITH DIFFE RENTI AL/PL ATELE T MCHC 33.9 g/dL 31.5-3 5.7 Not Available [facility] ([facility]) [address] [place], [address], 08/31/2024 08:31:12 08/30/20 24 08/31/2024 CBC WITH DIFFE RENTI AL/PL ATELE T RDW 12.7 % 11.7-1 5.4 Not Available [facility] ([facility]) [address] [facility], [place], [address], 08/31/2024 08:31:12 08/30/20 24 08/31/2024 CBC WITH DIFFE RENTI AL/PL ATELE T platelets 274 x10e3 /uL 150-45 0 Not Available [facility] ([facility]) [address] [facility], [place], [address], 08/31/2024 08:31:12 08/30/20 24 08/31/2024 CBC WITH DIFFE RENTI AL/PL ATELE T neutrophils 48 % notest ab. Not Available [facility] ([facility]) [address] [facility], [place], [address], 08/31/2024 08:31:12 08/30/20 24 08/31/2024 CBC WITH DIFFE RENTI AL/PL ATELE T lymphs 33 % notest ab. Not Available [facility] ([facility]) [address] [facility], [place], [address], 08/31/2024 08:31:12 08/30/20 24 08/31/2024 CBC WITH DIFFE RENTI AL/PL ATELE T monocytes 13 % notest ab. Not Available [facility] ([facility]) [address] [facility], [place], [address], 08/31/2024 08:31:12 08/30/20 24 08/31/2024 CBC WITH DIFFE RENTI AL/PL ATELE T eos 5 % notest ab. Not Available [facility] ([facility]) [address] [facility], [place], [address], 08/31/2024 08:31:12 08/30/20 24 08/31/2024 CBC WITH DIFFE RENTI AL/PL ATELE T basos 1 % notest ab. Not Available [facility] ([facility]) [address] [facility], [place], [address], 08/31/2024 08:31:12 08/30/20 24 08/31/2024 CBC WITH DIFFE RENTI AL/PL ATELE T neutrophils (absolute) 4.1 x10e3 /uL 1.4-7. 0 Not Available [facility] ([facility]) [address] [place], [address], 08/31/2024 08:31:12 08/30/20 24 08/31/2024 CBC WITH DIFFE RENTI AL/PL ATELE T lymphs (absolute) 2.7 x10e3 /uL 0.7-3. 1 Not Available [facility] ([facility]) [address] [place], [address], 08/31/2024 08:31:12 08/30/20 24 08/31/2024 CBC WITH DIFFE RENTI AL/PL ATELE T monocytes(ab solute) 1.1 x10e3 /uL 0.1-0. 9 above high normal Not Available [facility] ([facility]) [address] [place], [address], 08/31/2024 08:31:12 08/30/20 24 08/31/2024 CBC WITH DIFFE RENTI AL/PL ATELE T eos (absolute) 0.4 x10e3 /uL 0.0-0. 4 Not Available [facility] ([facility]) [address] [place], [address], 08/31/2024 08:31:12 08/30/20 24 08/31/2024 CBC WITH DIFFE RENTI AL/PL ATELE T baso (absolute) 0.1 x10e3 /uL 0.0-0. 2 Not Available [facility] ([facility]) [address] [place], [address], 08/31/2024 08:31:12 08/30/20 24 08/31/2024 CBC WITH DIFFE RENTI AL/PL ATELE T immature granulocytes 0 % notest ab. Not Available [facility] ([facility]) [address] [place], [address], 08/31/2024 08:31:12 08/30/20 24 08/31/2024 CBC WITH DIFFE RENTI AL/PL ATELE T immature grans (abs) 0.0 x10e3 /uL 0.0-0. 1 Not Available [facility] ([facility]) [address] [facility], [place], [address], 08/31/2024 08:31:12 01/19/20 25 01/19/2025 LIPID PANEL cholesterol, total 157 mg/dL 100-19 9 Not Available [facility] ([facility]) [address] [place], [address], 01/19/2025 09:10:13 01/19/20 25 01/19/2025 LIPID PANEL triglyceride s 295 mg/dL 0-149 above high normal Not Available [facility] ([facility]) [address] [place], [address], 01/19/2025 09:10:13 01/19/20 25 01/19/2025 LIPID PANEL HDL cholesterol 45 mg/dL >39 Not Available [facility] ([facility]) [address] [facility], [place], [address], 01/19/2025 09:10:13 01/19/20 25 01/19/2025 LIPID PANEL VLDL cholesterol lo 47 mg/dL 5-40 above high normal Not Available [facility] ([facility]) [address] [place], [address], 01/19/2025 09:10:13 01/19/20 25 01/19/2025 LIPID PANEL LDL chol calc (rust) 65 mg/dL 0-99 Not Available [facility] ([facility]) [address] [place], [address], 01/19/2025 09:10:13 01/19/20 25 01/19/2025 COMP. METAB OLIC PANEL (14) glucose 79 mg/dL 70-99 Not Available [facility] ([facility]) [address] [place], [address], 01/19/2025 09:10:14 01/19/20 25 01/19/2025 COMP. METAB OLIC PANEL (14) BUN 17 mg/dL 8-27 Not Available [facility] ([facility]) [address] [place], [address], 01/19/2025 09:10:14 01/19/20 25 01/19/2025 COMP. METAB OLIC PANEL (14) creatinine 0.70 mg/dL 0.57-1 .00 Not Available [facility] ([facility]) [address] [place], [address], 01/19/2025 09:10:14 01/19/20 25 01/19/2025 COMP. METAB OLIC PANEL (14) eGFR 86 mL/mi n/1.7 3 >59 Not Available [facility] [facility] [address] [place], [address], 01/19/2025 09:10:14 01/19/20 25 01/19/2025 COMP. METAB OLIC PANEL (14) BUN/creatini ne ratio 24 12-28 Not Available [facility] ([facility]) [address] [place], [address], 01/19/2025 09:10:14 01/19/20 25 01/19/2025 COMP. METAB OLIC PANEL (14) sodium 139 mmol/ L 134-14 4 Not Available [facility] ([facility]) [address] [place], [address], 01/19/2025 09:10:14 01/19/20 25 01/19/2025 COMP. METAB OLIC PANEL (14) potassium 4.8 mmol/ L 3.5-5. 2 Not Available [facility] ([facility]) [address] [place], [address], 01/19/2025 09:10:14 01/19/20 25 01/19/2025 COMP. METAB OLIC PANEL (14) chloride 102 mmol/ L 96-106 Not Available [facility] ([facility]) [address], [place], [address], 01/19/2025 09:10:14 01/19/20 25 01/19/2025 COMP. METAB OLIC PANEL (14) carbon dioxide, total 23 mmol/ L 20-29 Not Available [facility] ([facility]) [address], [place], [address], 01/19/2025 09:10:14 01/19/20 25 01/19/2025 COMP. METAB OLIC PANEL (14) calcium 9.8 mg/dL 8.7-10 .3 Not Available [facility] ([facility]) [address], [place], [address], 01/19/2025 09:10:14 01/19/20 25 01/19/2025 COMP. METAB OLIC PANEL (14) protein, total 7.1 g/dL 6.0-8. 5 Not Available [facility] ([facility]) [address], [place], [address], 01/19/2025 09:10:14 01/19/20 25 01/19/2025 COMP. METAB OLIC PANEL (14) albumin 4.3 g/dL 3.7-4. 7 Not Available [facility] ([facility]) [address], [place], [address], 01/19/2025 09:10:14 01/19/20 25 01/19/2025 COMP. METAB OLIC PANEL (14) globulin, total 2.8 g/dL 1.5-4. 5 Not Available [facility] ([facility]) [address], [place], [address], 01/19/2025 09:10:14 01/19/20 25 01/19/2025 COMP. METAB OLIC PANEL (14) bilirubin, total 0.3 mg/dL 0.0-1. 2 Not Available [facility] ([facility]) [address] [place], [address], 01/19/2025 09:10:14 01/19/20 25 01/19/2025 COMP. METAB OLIC PANEL (14) alkaline phosphatase 46 IU/L 44-121 Not Available [facility] ([facility]) [address], [place], [address], 01/19/2025 09:10:14 01/19/2001/19/2025 COMP. METAB OLIC PANEL (14) AST (SGOT) 31 IU/L 0-40 Not Available [facility] ([facility]) [address] [place], [address], 01/19/2025 09:10:14 01/19/20 25 01/19/2025 COMP. METAB OLIC PANEL (14) ALT (SGPT) 35 IU/L 0-32 above high normal Not Available [facility] ([facility]) [address] [facility] [place], [address], 01/19/2025 09:10:14 01/19/20 25 01/19/2025 CBC WITH DIFFE RENTI AL/PL ATELE T WBC 8.0 x10e3 /uL 3.4-10 .8 Not Available [facility] ([facility]) [address] [facility] [place] [place], [address], 01/19/2025 09:10:16 01/19/20 25 01/19/2025 CBC WITH DIFFE RENTI AL/PL ATELE T RBC 4.45 x10e6 /uL 3.77-5 .28 Not Available [facility] ([facility]) [address] [facility] [place] [place], [address], 01/19/2025 09:10:16 01/19/20 25 01/19/2025 CBC WITH DIFFE RENTI AL/PL ATELE T hemoglobin 14.3 g/dL 11.1-1 5.9 Not Available [facility] ([facility]) [address] [facility], [place], [address], 01/19/2025 09:10:16 01/19/2001/19/2025 CBC WITH DIFFE RENTI AL/PL ATELE T hematocrit 43.7 % 34.0-4 6.6 Not Available [facility] ([facility]) [address] [facility], [place], [address], 01/19/2025 09:10:16 01/19/2001/19/2025 CBC WITH DIFFE RENTI AL/PL ATELE T MCV 98 fL 79-97 above high normal Not Available [facility] ([facility]) [address] [place], [address], 01/19/2025 09:10:16 01/19/2001/19/2025 CBC WITH DIFFE RENTI AL/PL ATELE T MCH 32.1 pg 26.6-3 3.0 Not Available [facility] ([facility]) [address] [place], [address], 01/19/2025 09:10:16 01/19/2001/19/2025 CBC WITH DIFFE RENTI AL/PL ATELE T MCHC 32.7 g/dL 31.5-3 5.7 Not Available [facility] ([facility]) [address] [place], [address], 01/19/2025 09:10:16 01/19/2001/19/2025 CBC WITH DIFFE RENTI AL/PL ATELE T RDW 13.0 % 11.7-1 5.4 Not Available [facility] ([facility]) [address] [place], [address], 01/19/2025 09:10:16 01/19/20 25 01/19/2025 CBC WITH DIFFE RENTI AL/PL ATELE T platelets 265 x10e3 /uL 150-45 0 Not Available [facility] ([facility]) [address] [facility], [place], [address], 01/19/2025 09:10:16 01/19/20 25 01/19/2025 CBC WITH DIFFE RENTI AL/PL ATELE T neutrophils 46 % notest ab. Not Available [facility] ([facility]) [address] [facility], [place], [address], 01/19/2025 09:10:16 01/19/20 25 01/19/2025 CBC WITH DIFFE RENTI AL/PL ATELE T lymphs 33 % notest ab. Not Available [facility] ([facility]) [address] [facility], [place], [address], 01/19/2025 09:10:16 01/19/20 25 01/19/2025 CBC WITH DIFFE RENTI AL/PL ATELE T monocytes 15 % notest ab. Not Available [facility] ([facility]) [address] [facility], [place], [address], 01/19/2025 09:10:16 01/19/20 25 01/19/2025 CBC WITH DIFFE RENTI AL/PL ATELE T eos 5 % notest ab. Not Available [facility] ([facility]) [address] [facility], [place], [address], 01/19/2025 09:10:16 01/19/20 25 01/19/2025 CBC WITH DIFFE RENTI AL/PL ATELE T basos 1 % notest ab. Not Available [facility] ([facility]) [address] [facility], [place], [address], 01/19/2025 09:10:16 01/19/20 25 01/19/2025 CBC WITH DIFFE RENTI AL/PL ATELE T neutrophils (absolute) 3.7 x10e3 /uL 1.4-7. 0 Not Available [facility] ([facility]) [address] [facility], [place], [address], 01/19/2025 09:10:16 01/19/20 25 01/19/2025 CBC WITH DIFFE RENTI AL/PL ATELE T lymphs (absolute) 2.6 x10e3 /uL 0.7-3. 1 Not Available [facility] ([facility]) [address] [facility], [place], [address], 01/19/2025 09:10:16 01/19/2001/19/2025 CBC WITH DIFFE RENTI AL/PL ATELE T monocytes(ab solute) 1.2 x10e3 /uL 0.1-0. 9 above high normal Not Available [facility] ([facility]) [address] [facility], [place], [address], 01/19/2025 09:10:16 01/19/20 25 01/19/2025 CBC WITH DIFFE RENTI AL/PL ATELE T eos (absolute) 0.4 x10e3 /uL 0.0-0. 4 Not Available [facility] ([facility]) [address] [facility], [place], [address], 01/19/2025 09:10:16 01/19/2001/19/2025 CBC WITH DIFFE RENTI AL/PL ATELE T baso (absolute) 0.1 x10e3 /uL 0.0-0. 2 Not Available [facility] ([facility]) [address] [facility], [place], [address], 01/19/2025 09:10:16 01/19/2001/19/2025 CBC WITH DIFFE RENTI AL/PL ATELE T immature granulocytes 0 % notest ab. Not Available [facility] ([facility]) [address] [facility], [place], [address], 01/19/2025 09:10:16 01/19/20 25 01/19/2025 CBC WITH DIFFE RENTI AL/PL ATELE T immature grans (abs) 0.0 x10e3 /uL 0.0-0. 1 Not Available [facility] ([facility]) [address] [facility], [place], [address], 01/19/2025 09:10:16 01/29/20 25 01/28/2025 CT, head, w/o contr ast No observ ation record ed. [address] [place], [address], 02/01/2025 23:37:10 01/29/20 25 01/28/2025 XR, hand No observ ation record ed. [address] [place], [address], 02/01/2025 23:37:10 01/29/20 25 01/28/2025 XR, wrist , 2 view No observ ation record ed. [address] [place], [address], 02/01/2025 23:37:10 02/15/20 25 01/28/2025 emerg ency dept. visit * No observ ation record ed. [address] [place], [address], 02/16/2025 23:11:49 Result Notes None recorded. Problems Name Problem SNOMED Code Status Onset Date Resolution Date Notes Provider Name and Address Organization Details Recorded Time Hyperlipidemi a 19756971 Active 2023 Luis Angel Delgado MD Attn: Accounting ,[address] [facility], [place], [address] , [facility] 22:54:14 Chronic headache disorder 928845336 Active 2023 Luis Angel Delgado MD Attn: Accounting ,[address] [facility], [place], [address] , [facility] 08/01/202 4 22:54:16 Chronic low back pain 744282335 Active 2023 Luis Angel Delgado MD Attn: Accounting ,[address] , [place], [address] , [facility] 4 22:54:17 Essential hypertension 42092839 Active 2024 Julia Charles RN null, [facility] 5 11:12:29 Problem Notes None recorded. Procedures Surgical History Date Name Laterality Status Provider Name and Address Organization Details Recorded Time Back Surgery completed Kenneth Abreu MA [facility] 01/06/2024 15:58:59 Eye Surgery completed Kenneth Abreu MA [facility] 01/06/2024 15:59:07 Joint Replacement completed Kenneth Abreu MA [facility] 01/06/2024 15:59:14 [facility] 01/06/2024 15:59:28 Imaging Results None recorded. Procedure [...] MOUTH TWICE DAILY NEEDED FOR BACK SPASM active Not Available Not Available No t [...] . MAY REPEAT IN 2 HOURS NEEDED active Not Available Not Available No t Available amlodipine 5 mg tablet TAKE 1 TABLET BY MOUTH EVERY DAY active Not Available Not Available No t Available amitriptylin e 25 mg tablet TAKE 1 TABLET BY MOUTH EVERY DAY active Not Available Not Available No t Available cephalexin 500 mg tablet TAKE 1 TABLET BY MOUTH THREE TIMES DAILY FOR 5 DAYS 05/31 completed Not Available Not Available Not Available halobetasol propionate 0.05 % topical cream Apply to area daily 2024 active Not Available Not Available Not Avai lable rosuvastatin 20 mg tablet TAKE 1 TABLET BY MOUTH EVERY DAY active Not Available Not Available No t Available nitrofuranto in monohydrate/ macrocrystal s 100 mg [...] Address Organization Details Last Updated DateTime 4 66752.4 9 g 25.9 kg/m2 160.02 cm 96 % 96 % 60 /min 154/92 mm[Hg] Kenneth Abreu MA [facility] 4 16:04:46 Date Recorded Body height Body mass index (BMI) Body weight Heart rate Oxygen saturation Oxygen saturation in Arterial blood by Pulse oximetry Systolic And Diastolic Provider Name and Address Organization Details Last Updated DateTime 5 160.02 cm 27.4 kg/m2 19514.6 6 g 61 /min 97 % 97 % 120/64 mm[Hg] Lynsey Burgess MA [facility] 5 12:16:48 Date Recorded Body height Body mass index (BMI) Body weight Heart rate Oxygen saturation Oxygen saturation in Arterial blood by Pulse oximetry Systolic And Diastolic Provider Name and Address Organization Details Last Updated DateTime 5 160.02 cm 26 kg/m2 66344 g 84 /min 98 % 98 % 138/70 mm[Hg] Lynsey Burgess MA [facility] 5 11:31:44 Date Recorded Body height Body mass index (BMI) Body weight Heart rate Oxygen saturation Oxygen saturation in Arterial blood by Pulse oximetry Systolic And Diastolic Provider Name and Address Organization Details Last Updated DateTime 4 160.02 cm 26 kg/m2 96642.0 8 g 62 /min 97 % 97 % 138/70 mm[Hg] Lynsey Burgess MA [place] - [facility] 4 15:35:02 Date Recorded Body height Body mass index (BMI) Body weight Heart rate Oxygen saturation Oxygen saturation in Arterial blood by Pulse oximetry Systolic And Diastolic Provider Name and Address Organization Details Last Updated DateTime 4 160.02 cm 26.5 kg/m2 67544.1 4 g 87 /min 96 % 96 % 128/64 mm[Hg] Lynsey Burgess MA [place] - [facility] 4 12:05:19 Social History Question Answer Notes LastModified by [address] Details LastModified Time Tobacco Smoking Status Never Smoker Kenneth Abreu MA [facility] 01/06/2024 15:58:04 Do You Have [...] Functional Status Question Answer Note LastModified by [address] Details LastModified Time Do you use any illicit or recreational drugs? No Information not available 01/06/2024 Do you or have you ever used any other forms of tobacco or nicotine? No Information not available 01/06/2024 What is your level of alcohol consumption? None Information not available 01/06/2024 Are you able to care for yourself independently? Yes Information not available 01/06/2024 What is your exercise level? [...] Influenza, high-dose, quadrivalent, PF 2 completed Lynsey Jenifer, [place] null, [place] [facility] 01/18/2025 12:17:10 Influenza, high-dose, quadrivalent, PF 3 completed Lynsey Jenifer, [place], [place] [facility] 01/18/2025 12:17:10 Influenza, high-dose, quadrivalent, PF 1 completed Lynsey Jenifer, [place], [place] [facility] 01/18/2025 12:17:10 Influenza, high-dose, quadrivalent, PF 0 completed Lynsey Jenifer, [place], [place] [facility] 01/18/2025 12:17:10 COVID-19, mRNA, LNP-S, PF, 30 mcg/0.3 mL dose 1 completed Lynsey Jenifer, [place], [place] [facility] 01/18/2025 12:17:10 COVID-19 vaccine, vector-nr, rS-Ad26, PF, 0.5 mL 1 completed Lynsey Jenifer, [place] null, [place] [...] Jenifer, [place], [place] [facility] 01/18/2025 12:17:23 Influenza, high-dose, trivalent, PF 4 completed Lynsey Burgess [place], [place] [facility] 01/18/2025 12:17:23 Tdap 5 completed Luis Angel Delgado MD Attn: Accounting,[address] [facility], [place], [address], [facility] 01/22/2025 13:26:17 Past Encounters Encounter ID Performer Location Encounter Start Date Encounter Closed Date Diagnosis/Indication Diagnosis SNOMED-CT Code Diagnosis ICD10 Code Diagnosis IMO Codes Diagnosis Note [id number] Luis Angel Delgado MD [facility] (Adult Med) [address] [place] [address] 0 01/06/2024 15:23:15 01/06/2024 16:48:01 Hyperlipidemia 09630975 E78.5 Long-term drug therapy 504114199 Z79.899 Palpitations 15152103 R0 0.2 Chronic he adache disorder 422163734 G44.89 Chronic back pain 129925 002 G89.29 [id number] Luis Angel Delgado MD [facility] (Adult Med) [address] [place] [phone] 0 05/03/2024 15:00:52 05/03/2024 16:20:38 Overweight 208289293 E66.3 Hyperlipidemia 98476843 E78.5 Chronic he adache disorder 447906441 G44.89 Chronic low back pain 27 9614699 M54.50 [id number] Luis Angel Delgado MD [facility] (Adult Med) [address] [place] [address] 0 08/30/2024 11:47:31 08/30/2024 12:51:48 Overweight 496462810 E66.3 Essential hypertension 93807814 I10 Hyperlipidemia 83417927 E78.5 Chronic low back pain 27 0397762 M54.50 Chronic he adache disorder 966547011 G44.89 [id number] MD [facility] (Adult Med) [address] [place] [address] [phone] 0 01/18/2025 11:50:45 01/18/2025 12:45:42 Body mass index 25-29 - overweight 657175846 Z68.27 Overweight 934996063 E66 .3 Administra tion of diphtheria, pertussis, and tetanus vaccine 391325677 Z23 Chronic dermatitis [address]140 007 L30.9 Hyperlipidemia 53274027 E78.5 Long-term drug therapy 540362512 Z79.899 Vertigo 587306961 R42 Chronic he adache disorder 251412952 G44.89 Chronic low back pain 27 1014809 M54.50 [id number] Luis Angel Delgado MD [facility] [address] [place] [address] 02/02/2025 11:16:22 02/02/2025 12:33:53 Overweight in adulthood with body mass index of 25 or more but less than 30 634371479 E66.3 Z68.26 5799367419 Overweight 718218854 E66 .3 Cellulitis of hand 28720 005 L03.119 216 Right johnnie ocular contusion 5898012612 9577557 S05.11XA 9915985 Abrasion o f skin of left hand 8228177455 2425902 S60.512A 512783 Health Concerns Section Related Observation LastModified by Organization Detai ls LastModified Time None Recorded Concern Status LastModified by Organization Details LastModified Time None Recorded Advance Directives Directive N: Payers Insurance Date Sequence Insurance Name Policy Number Policy Lee Covered Member ID Lee Member ID Guarantor Name 05/19/2025 [place] - [place] Juanis Acosta [id number] Juanis Acosta 05/19/2025 1 [place] Juanis Montalvot [id number] Juanis Acosta 05/19/2025 2 [employer] SUPPLEMENTAL - [employer] LIFE INSURANCE (MEDICARE SUPPLEMENT) Juanis Acosta [id number] Juains Acosta Notes Date Note Type Note Provider [...] other symptoms Luis Angel Delgado MD Attn: Accounting, [address] [facility], [place], [address], [place] [facility] 02/04/2024 08:48:34 05/03/2024 text/html 84-year-old with history [...] Angel Delgado MD Attn: Accounting, [address] [facility], [place], [address], [facility] 05/05/2024 22:55:21 08/30/2024 text/html blood pressure 128/64 asymptomatic. Headaches have been somewhat stable dyslipidemia taking her rosuvastatin try to watch her diet. Back pain maybe a little bit worse lots of stress lost her in the interval history. Luis Angel Delgado MD Attn: Accounting, [address] [facility], [place], [address], [facility] 09/03/2024 21:10:48 01/18/2025 text/html 84-year-old with history [...] for years does not want to see home health care respiratory therapist would like for me to refill the Luis Angel Delgado MD Attn: Accounting, [address] [facility] [facility], [place], [address], [place] [facility] 01/22/2025 13:27:41 02/02/2025 text/html Mechanical fall went to the ER discharged periorbital contusion on the right contusion left hand sore but she is doing okay did not miss her back up not having any headache no blurred vision no loss of function anywhere Luis Angel Delgado MD Attn: Accounting, [address] [place], [address], [place] [facility] 02/03/2025 22:05:52 OBGyn Episode No OBEpisode recorded.
== END 2025-07-21 08:47 | disposition home or self-care (01) ==
PROVIDERS: PCP Family Medicine; Visit Provider Family Medicine
DX: K76.0 Fatty (change of) liver, not elsewhere classified (principal); R16.0 Hepatomegaly, not elsewhere classified; R74.8 Abnormal levels of other serum enzymes
CPT/HCPCS: 76705

== ENCOUNTER 2025-07-31 13:29 | Outpatient (CLI) | payer MEDICARE, SELFPAY ==
--- OUTSIDE RECORDS SUMMARY | 2010-05-13 09:15 | XMS_ITS | Continuity of Care Document ---
Author Organization [facility] Address [address] [facility] [address] [place] [address] Phone Care Team Providers Care Loan Clerk Name Role Phone Pete Bridges Unavailable Unavailable [...] Providers Copied on Encounter Office/outpat ient Visit, [facility], [address] [place] [address] [address], [place], [place], [address], [place] tel:[phone] SEC [facility] No Information 9-201 0 Yuliana Pete. [address] [facility] [address], [place], [address], [place]. tel:[phone] Office/outpat ient Visit, [facility], [address], [place], [place], [address], [place] tel:[phone] [facility] No Information Brayden-2 0-200 9 Krishnasamy Pete. [address] [facility] [address], [place], [address], [place]. tel:[phone] Office/outpat ient Visit, Est [facility], [address], [place], [place], [address], [place] tel:[phone] SEC [facility] No Information Dec-1 6-200 8 Krishnasamy Pete. [address], [place], [address], [place]. tel:[phone] [facility], [address], [place], [place], [address], [place] tel:[phone] [facility] [place] No Information Sep-2 3-200 8 Krishnasamy Pete. [address] [facility] [address], [place], [place], [facility], [place]. tel:[phone] [facility], [address], [place], [place], [address], [place] tel:[phone] [facility] No Information Sep-0 2-200 8 Krishnasamy Pete. [address] [facility] [address], [place], [address], [place]. tel:[phone] [facility], [address], [place], [place], [address], [place] tel:[phone] SEC [facility] No Information Aug-1 1-200 8 Krishnasamy Pete. [address] [facility] [address], [place], [address], [place]. tel:[phone] [facility], [address], [place], [place], [address], [place] tel:[phone] SEC [facility] No Information Aug-0 1-200 8 Krishnasamy Pete. [address], [place], [address], [place]. tel:[phone] [facility], [address], [place], [place], [address], [place] tel:[phone] [facility] No Information 1200 8 Krishnasamy Pete. [address] [place] [address], [place], [facility], [place]. tel:[phone] [facility] Eye [facility], [address], [place], [place], [address], [place] tel:[phone] SEC [facility] No Information 200 8 Krishnasamy Pete. [address] [place] [address], [facility], [place]. tel:[phone] Referring Provider: Pete gooden, [address] [place] [address], [facility]. tel:[phone] [facility] Eye [facility], [address] [facility] [address], [place], [place], [address], [place] tel:[phone] SEC [facility] No Information 7 Chaymandie Moncada. [address] [facility], [address], [place], [place], [address], [place]. tel:[phone] Family History Family Member Type Diagnosis Age At Onset No Information Payers Payer name Insurance type Covered republican ID Authoriza tion(s) [place] [id number] [place] [id number] Social History Type Description Quantity Date Captured [...]
--- NOTE | ~2025-07-31 | DEXA_ITS ---
Bone Density Report Name: MACO CUEVAS Age: 85 Sex: Female Ethnicity: White Date of : 1940 Indication: postmenopausal; screening for osteoporosis; hysterectomy; Referring Provider: LAURA ROSALES Study: Bone densitometry was performed. Exam Date: July 31, 2025 Accession number: [id number] Bone Density: Region BMD T-score Z-score Classification AP Spine(L1, L2, L3) 1.395 3.4 6.2 Normal Femoral Neck (Left) 0.671 -1.6 0.9 Osteopenia Total Hip (Left) 1.044 0.8 3.1 Normal World Health Organization criteria for BMD impression classify patients as: Normal (T-score at or above -1.0), Osteopenia (T-score between -1.0 and -2.5), or Osteoporosis (T-score at or below -2.5). 10-year Fracture Risk(1): Major Osteoporotic Fracture 14% Hip Fracture 3.9% Reported Risk Factors: [place] (), Neck BMD=0.671, BMI=26.3 (1) FRAX(R) Version 3.08. Fracture probability calculated for an untreated patient. Fracture probability may be lower if the patient has received treatment. Clinical Information Provided by Patient: Has used the following medications: Vitamin D Has the following medical conditions: Hysterectomy Patient maximum height was 63.75 Menopause Age: 42 Drinks caffeinated beverages Onset of menses at age 14 Number of children 2 Impression: The patient has low bone mass, based on the Left Femoral Neck T-score. The patient has an estimated ten-year risk of hip fracture of 3.9% and an estimated ten-year risk of major fracture of 14%, based on the WHO FRAX algorithm. Discussion: BONE DENSITY IS LOW AT ONE OR MORE SKELETAL SITES. THE PATIENT'S BMD AND CLINICAL RISK FACTORS CONTRIBUTE TO THIS PATIENT'S INCREASED RISK OF FRACTURE. This patient's lowest T-score is low at one or more skeletal sites. It meets the World Health Organization's (WHO) criteria for ?low bone mass? (T-score between -1.0 and -2.5). The patient's 10-year risk of hip fracture as calculated by FRAX exceeds the threshold where pharmacological therapy is recommended by the National Osteoporosis Foundation (NOF). However, all treatment decisions require clinical judgment and consideration of individual patient factors, including patient preferences, comorbidities, previous drug use, risk factors not captured in the FRAX model (e.g., frailty, falls, vitamin D deficiency, increased bone turnover, interval significant decline in bone density) and possible under or overestimation of fracture risk by FRAX. The patient should follow a healthful lifestyle (good nutrition with adequate calcium and vitamin D, and appropriate weight-bearing exercise). Follow-Up: Consider a repeat BMD and Vertebral Fracture Assessment (VFA) exam in 2 years or sooner if medically necessary, to reassess this patient's status. Reported by: ANTOINETTE on 07/31/2025 2:12:00 PM. Reviewed, dictated and finalized at location A.
--- OUTSIDE RECORDS SUMMARY | 2025-07-31 15:07 | XMS_ITS | Clinical Summary ---
Author Organization [facility] Address [address] [place] [address] Care Team Providers Care Media Director Name Role Phone Jose Maria Delgado MD Primary Care Provider [phone] Ashley Day NP Unavailable [phone] Allergies Active Allergy Reactions Criticality Noted Date [...] (10/16/2020): Added automatically from request for surgery [id number] Immunizations Immunization Administration Dates Next Due Influenza, Quadrivalent, Hig h Dose, Preservative Free, Intrr 07/10/2020 Influenza, Trivalent, High D ose, Split, Preservative Free, Intramuscular 07/01/2018,06/23/2017,07/22/2016 Influenza, Trivalent, IM (MDV) 07/19/2019 Influenza, Unspecified 07/10/2020 [employer] SARS-CoV-2 Vaccination 12/13/2020 Pneumococcal Conjugate PCV [...] on file Legal Sex Female 7:54 AM TRIMMER HELPER Gender Identity Not on file Sexual Orientation Not on file Obstetrics History Last Filed Vital Signs Vital Sign Reading Time Taken Comments Blood Pressure 111/85 10/18/2020 9:47 AM TRIMMER HELPER Pulse 73 10/18/2020 9:47 AM TRIMMER HELPER Temperature 36.6 C (97.9 F) 10/18/2020 3:27 AM TRIMMER HELPER Respiratory Rate 18 10/18/2020 3:27 AM TRIMMER HELPER Oxygen Saturation 92% 10/18/2020 9:47 AM TRIMMER HELPER Inhaled Oxygen Concentration - - Weight 67.6 [...] 09/25/2016, 10/2011 Medical Devices Implanted Type Area Sewing Machine Operator Plastic Zipper Device Identifier Shelf Expiration Date Model / Serial / Lot Spinal Graft Tech [id number] [place] 1.5x1.5cm Flex Graft Bone Demineralized Bone Matrix - [id number] - [id number] Implanted:Qty: 1 on 10/17/2020 by Jose Maria Vines MD at [facility] N/A: Spine Cervical [employer] 04/30/2023 [id number] / [id number] / Musculoskeletal Transplant [id number] Frozen Spine 7d Lordotic Trapezoid Spacer Allograft - [id number] - [id number] Implanted:Qty: 1 on 10/17/2020 by Jose Maria Vines MD at [facility] N/A: Spine Cervical Musculoskeletal Transplant 04/05/2025 [id number] / [id number] / [employer] [id number] Maxan 9mm Cervical Spine Plate Bone - [id number] Implanted:Qty: 1 on 10/17/2020 by Jose Maria Vines MD at [facility] N/A: Spine Cervical [employer] [id number] / / [employer] [id number] 4mm 16mm Fix Screw Bone - [id number] Implanted:Qty: 2 on 10/17/2020 by Jose Maria Vines MD at [facility] N/A: Spine Cervical [employer] [id number] / / [employer] [id number] Maxan 4.5mm 14mm Fix Angle Spine Screw Bone - [id number] Implanted:Qty: 2 on 10/17/2020 by Jose Maria Vines MD at [facility] N/A: Spine Cervical [employer] [id number] / / Insurance MEDICARE [facility] MEDICARE SUPPLE[place] [address] MEDICARE CIG MEDICARE SUPPLEMENT INSURANCE MEDICARE MEDICARE Advance Directives For more information, please contact: [phone] * Full Code (Latest Code Status on File) Date Activated Date Inactivated Comments 10/17/2020 10:46 AM 10/18/2020 6:15 PM * Full Code Date Activated Date Inactivated Comments 10/16/2020 1:21 PM 10/17/2020 10:46 AM Care Teams Media Director Relationship Specialty Start Date End Date Jose Maria Delgado MD PCP - General Internal Medicine 10/11/20 Ashley Day NP Nurse Practitioner Orthopedic Surgery 10/18/20
--- OUTSIDE RECORDS SUMMARY | 2025-07-31 15:07 | XMS_ITS | Clinical Summary ---
Author Organization [facility] Address [address] [facility] [place] [address] Care Team Providers Care Instructor Substitute Cosmetology Name Role Phone Jose Maria Delgado MD Primary Care Provider [phone] Source Comments [facility],non-owned Affiliates and Associated Physician Practices is amultiple site organization consisting of ambulatory clinics and hospital sitesin [place], [place], [place] and [place]. This disclosure is being madepursuant to the Care Everywhere program and may not contain all information available regarding this patient. Last updated 18.[facility] Allergies Active Allergy Reactions [...] on file Legal Sex Female 9:14 AM PRACTICE LEAD Gender Identity Not on file Sexual Orientation [...] 68 kg (150 lb) 10/17/2015 9:57 AM PRACTICE LEAD Height 162.6 cm (5' 4) 10/17/2015 9:57 AM PRACTICE LEAD Body Mass Index 25.75 10/17/2015 9:57 AM PRACTICE LEAD Plan of Treatment Health Maintenance Due Date [...] age to complete this topic Insurance MEDICARE [facility] Advance Directives * Full Code (Latest Code Status on File) Date Activated Date Inactivated Comments 06/20/2010 5:55 PM 06/22/2010 12:41 AM Care Teams Instructor Substitute Cosmetology Relationship Specialty Start Date End Date Jose Maria Delgado MD PCP - General Internal Medicine 08/15/15
--- OUTSIDE RECORDS SUMMARY | 2025-07-31 15:07 | XMS_ITS | Data Portability ---
Author Organization [facility] [employer] [employer], Main Office Address [address] [place] [address] Care Team Providers Care Impregnator Name Role Phone LUIS ANGEL DELGADO Primary Care Provider LUIS ANGEL DELGADO Referring Provider Assessment Encounter Date Assessment Date Assessment LastModified by Organization Details LastModified Time 02/13/2023 02/13/2023 EKG shows sinus arrhythmia nonspecific ST changes ENT Complete echo 2 week culture blood work Chest x-ray Wellness completed [email or web address] Not available 03/01/2023 14:26:31 07/02/2023 07/02/2023 Will continue current therapy follow-up with me in 4 months her breathing has been stable for at least 6 months she says if he gets worse she will let us know [email or web address] Not available 07/12/2023 21:06:25 08/06/2023 08/06/2023 Impression: [...] will follow-up with me in 4 months [email or web address] Not available 11/03/2023 21:35:54 Plan of Treatment Reminders Order Date Submit Date Provider Last Modified By Organization Details Last Modified Time Details Appointments None recorded. Lab CBC w/ auto diff 2022 023 [facility] (Lab), [address] [place], [address], 3 19:41:47 CMP, serum or plasma 2022 023 [facility] (Lab), [address] [place], [address], 3 20:03:23 TSH, serum or plasma 2022 023 [facility] (Lab), [address] [place], [address], 3 20:41:52 T4, free, serum 2022 023 [facility] (Lab), [address] [place], [address], 3 20:29:09 T3, free, serum or plasma 2022 023 [facility] (Lab), [address] [place], [address], 3 20:29:12 lipid panel, serum 2022 023 [facility] (Lab), [address] [place], [address], 3 20:03:17 Referral ENT surgery referral 2022 023 jose Gary MD, [address], [place], [address], 3 15:55:52 Procedures magaly maneuver (PROC) 2022 023 [facility], [address], [place], [address], 3 10:30:50 Surgeries None recorded. Imaging XR, shoulder 2022 023 [email or web address] [facility], [address] [facility], [address], [place], [address], 3 10:47:02 US, echocardiog [email or web address] 2022 023 [facility] ([facility]), [address] [facility] [address], [place], [address], 3 14:58:26 cardiac telemetry - 2wk telemetry 2022 023 [facility], [address] [facility], [address], [place], [address], 3 10:33:51 electrocard iogram 2022 023 [email or web address] [facility] [address], [address] [address], [place], [address], 3 16:11:12 XR, chest 2022 023 [email or web address] Not available 3 09:07:55 Medication Orders None recorded. Patient TargetsNo targets recorded. Patient Instructions Encounter Date Encounter Id Patient Instructions Last Modified By Organization Details Last Modified Time 02/13/2023 [id number] dementia rating scale-2* [email or web address] Not available 02/13/2023 16:11:12 depression screening* [email or web address] Not available 02/13/2023 16:11:12 alcohol misuse* [email or web address] Not available 02/13/2023 16:11:12 multi-dimensiona l health assessment questionnaire* [email or web address] Not available 02/13/2023 16:11:12 Personalized [facility] Plan and Screening Recommendations Advance Directives - [...] 7.4 x10'3 /uL 4.2-10 .8 Not Available [facility] (Lab) [address] [place], [address], 02/13/2023 19:41:47 02/14/20 23 02/13/2023 CBC/C OMPLE TE BLD COUNT W/DIF F red blood cells 4.52 x10'6 /uL 3.80-5 .20 Not Available [facility] (Lab) [address] [place], [address], 02/13/2023 19:41:47 02/14/20 23 02/13/2023 CBC/C OMPLE TE BLD COUNT W/DIF F hemoglobin 14.4 g/dL 12.0-1 5.6 Not Available [facility] (Lab) [address] [place], [address], 02/13/2023 19:41:47 02/14/20 23 02/13/2023 CBC/C OMPLE TE BLD COUNT W/DIF F hematocrit 43.1 % 35.7-4 5.7 Not Available [facility] (Lab) [address] [place], [address], 02/13/2023 19:41:47 02/14/20 23 02/13/2023 CBC/C OMPLE TE BLD COUNT W/DIF F mean red cell volume 95.4 fL 82.0-9 9.0 Not Available [facility] (Lab) [address] [place], [address], 02/13/2023 19:41:47 02/14/20 23 02/13/2023 CBC/C OMPLE TE BLD COUNT W/DIF F mean red cell hemoglobin 31.9 pg 27.0-3 3.0 Not Available [facility] (Lab) [address] [place], [address], 02/13/2023 19:41:47 02/14/20 23 02/13/2023 CBC/C OMPLE TE BLD COUNT W/DIF F mean RBC HGB concentratio n 33.4 g/dL 31.0-3 6.0 Not Available [facility] (Lab) [address] [place], [address], 02/13/2023 19:41:47 02/14/20 23 02/13/2023 CBC/C OMPLE TE BLD COUNT W/DIF F red cell distribution width 13.0 % 11.8-1 5.5 Not Available [facility] (Lab) [address] [place], [address], 02/13/2023 19:41:47 02/14/20 23 02/13/2023 CBC/C OMPLE TE BLD COUNT W/DIF F platelets 261 x10'3 /uL 150-40 0 Not Available [facility] (Lab) [address] [place], [address], 02/13/2023 19:41:47 02/14/2002/13/2023 CBC/C OMPLE TE BLD COUNT W/DIF F mean platelet volume 10.3 fL 9.0-12 .4 Not Available [facility] (Lab) [address] [place], [address], 02/13/2023 19:41:47 02/14/20 23 02/13/2023 CBC/C OMPLE TE BLD COUNT W/DIF F neutrophils 46.0 % 39.0-7 2.0 Not Available [facility] (Lab) [address] [place], [address], 02/13/2023 19:41:47 02/14/20 23 02/13/2023 CBC/C OMPLE TE BLD COUNT W/DIF F lymphocytes 36.2 % 16.0-4 7.0 Not Available [facility] (Lab) [address] [place], [address], 02/13/2023 19:41:47 02/14/2002/13/2023 CBC/C OMPLE TE BLD COUNT W/DIF F monocytes 12.8 % 5.0-12 .0 high Not Available [facility] (Lab) [address] [place], [address], 02/13/2023 19:41:47 02/14/20 23 02/13/2023 CBC/C OMPLE TE BLD COUNT W/DIF F eosinophils 4.0 % 1.0-7. 0 Not Available [facility] (Lab) [address] [place], [address], 02/13/2023 19:41:47 02/14/20 23 02/13/2023 CBC/C OMPLE TE BLD COUNT W/DIF F basophils 0.7 % 0.0-2. 0 Not Available [facility] (Lab) [address] [place], [address], 02/13/2023 19:41:47 02/14/20 23 02/13/2023 CBC/C OMPLE TE BLD COUNT W/DIF F immature granulocytes 0.3 % 0.00-0 .50 Not Available [facility] (Lab) [address] [place], [address], 02/13/2023 19:41:47 02/14/20 23 02/13/2023 CBC/C OMPLE TE BLD COUNT W/DIF F neutrophils, absolute count 3.43 x10'3 /uL 1.5-8. 0 Not Available [facility] (Lab) [address] [place], [address], 02/13/2023 19:41:47 02/14/20 23 02/13/2023 CBC/C OMPLE TE BLD COUNT W/DIF F lymphocytes, absolute count 2.69 x10'3 /uL 1.07-3 .43 Not Available [facility] (Lab) [address] [place], [address], 02/13/2023 19:41:47 02/14/20 23 02/13/2023 CBC/C OMPLE TE BLD COUNT W/DIF F monocytes, absolute count 0.95 x10'3 /uL 0.29-0 .99 Not Available [facility] (Lab) [address] [place], [address], 02/13/2023 19:41:47 02/14/20 23 02/13/2023 CBC/C OMPLE TE BLD COUNT W/DIF F eosinophils, absolute count 0.30 x10'3 /uL 0.02-0 .53 Not Available [facility] (Lab) [address] [place], [address], 02/13/2023 19:41:47 02/14/20 23 02/13/2023 CBC/C OMPLE TE BLD COUNT W/DIF F basophils, absolute count 0.05 x10'3 /uL 0.01-0 .08 Not Available [facility] (Lab) [address] [place], [address], 02/13/2023 19:41:47 02/14/20 23 02/13/2023 CBC/C OMPLE TE BLD COUNT W/DIF F immature granulocytes ,absolute 0.02 x10'3 /uL 0.00-0 .05 Not Available [facility] (Lab) [address] [place], [address], 02/13/2023 19:41:47 02/14/20 23 02/13/2023 CBC/C OMPLE TE BLD COUNT W/DIF F nucleated red blood cells 0.0 % -0 Not Available [facility] (Lab) [address] [place], [address], 02/13/2023 19:41:47 02/14/20 23 02/13/2023 CBC/C OMPLE TE BLD COUNT W/DIF F NRBC# 0.00 x10'3 /uL Not Available [facility] (Lab) [address] [place], [address], 02/13/2023 19:41:47 02/14/20 23 02/13/2023 LIPID PANEL cholesterol 165 mg/dL 140-19 9 NIH JUAN CARLOS NSUS RECOM MENDA TION FOR YENI STERO L: ADULT CHILD LOW RISK: <200 <170 BORDE LING : <200- 239 ----- HIGH RISK: >240 >200 Not Available [facility] (Lab) [address] [place], [address], 02/13/2023 20:16:17 02/14/2002/13/2023 LIPID PANEL triglyceride s 292 mg/dL 0-150 high NIH JUAN CARLOS NSUS REPOR T RECOM MENDA TION FOR TRIGL YCERI ELISA: ADULT CHILD LOW RISK: <150 ----- BODER LINE: 150-1 99 ----- HIGH RISK: >200 ----- Not Available [facility] (Lab) [address] [place], [address], 02/13/2023 20:16:17 02/14/2002/13/2023 LIPID PANEL HDL cholesterol 50 mg/dL 40- Not Available [facility] (Lab) [address] [place], [address], 02/13/2023 20:16:17 02/14/2002/13/2023 LIPID PANEL LDL cholesterol, [...] WILL NOT BE REPOR SMITH. Not Available [facility] (Lab) [address] [place], [address], 02/13/2023 20:16:17 02/14/2002/13/2023 COMPR EHENS YAZMIN METAB OLIC PANEL sodium 141 mmol/ L 137-14 5 Not Available [facility] (Lab) [address] [place], [address], 02/13/2023 20:03:23 02/14/2002/13/2023 COMPR EHENS YAZMIN METAB OLIC PANEL potassium 4.4 mmol/ L 3.5-5. 1 Not Available [facility] (Lab) [address] [place], [address], 02/13/2023 20:03:23 02/14/20 23 02/13/2023 COMPR EHENS YAZMIN METAB OLIC PANEL chloride 104 mmol/ L 98-107 Not Available [facility] (Lab) [address] [place], [address], 02/13/2023 20:03:23 02/14/20 23 02/13/2023 COMPR EHENS YAZMIN METAB OLIC PANEL carbon dioxide 30 mmol/ L 22-30 Not Available [facility] (Lab) [address] [place], [address], 02/13/2023 20:03:23 02/14/20 23 02/13/2023 COMPR EHENS YAZMIN METAB OLIC PANEL anion gap 11.4 mmol/ L 14-22 low Not Available [facility] (Lab) [address] [place], [address], 02/13/2023 20:03:23 02/14/20 23 02/13/2023 COMPR EHENS YAZMIN METAB OLIC PANEL glucose 78 mg/dL 70-99 Not Available [facility] (Lab) [address] [place], [address], 02/13/2023 20:03:23 02/14/20 23 02/13/2023 COMPR EHENS YAZMIN METAB OLIC PANEL BUN 22 mg/dL 8-19 high Not Available [facility] (Lab) [address] [place], [address], 02/13/2023 20:03:23 02/14/20 23 02/13/2023 COMPR EHENS YAZMIN METAB OLIC PANEL creatinine 0.96 mg/dL 0.66-1 .25 Not Available [facility] (Lab) [address] [place], [address], 02/13/2023 20:03:23 02/14/20 23 02/13/2023 COMPR EHENS YAZMIN METAB OLIC PANEL GFR 56 Refer ence Range : [place] ge GFR Healt hy Adult : >60 [...] calcu lator is avail able on the [facility] websi te: https :[email or web address] horton.tamie saab.o rg/pr ofess ional s/kdo qi/gf r_cal culat or Not Available [facility] (Lab) [address] [place], [address], 02/13/2023 20:03:23 02/14/20 23 02/13/2023 COMPR EHENS YAZMIN METAB OLIC PANEL alkaline phosphatase 41 U/L 38-126 Not Available [facility] (Lab) [address] [place], [address], 02/13/2023 20:03:23 02/14/20 23 02/13/2023 COMPR EHENS YAZMIN METAB OLIC PANEL alanine aminotransfe rase 33 U/L 0-35 Not Available [facility] (Lab) [address] [place], [address], 02/13/2023 20:03:23 02/14/20 23 02/13/2023 COMPR EHENS YAZMIN METAB OLIC PANEL aspartate aminotransfe rase 38 U/L 15-37 high Not Available [facility] (Lab) [address] [place], [address], 02/13/2023 20:03:23 02/14/20 23 02/13/2023 COMPR EHENS YAZMIN METAB OLIC PANEL bilirubin, total 0.50 mg/dL 0.20-1 .30 Not Available [facility] (Lab) [address] [place], [address], 02/13/2023 20:03:23 02/14/20 23 02/13/2023 COMPR EHENS YAZMIN METAB OLIC PANEL calcium 10.3 mg/dL 8.4-10 .2 high Not Available [facility] (Lab) [address] [place], [address], 02/13/2023 20:03:23 02/14/20 23 02/13/2023 COMPR EHENS YAZMIN METAB OLIC PANEL total protein 7.4 g/dL 6.3-8. 2 Not Available [facility] (Lab) [address] [place], [address], 02/13/2023 20:03:23 02/14/20 23 02/13/2023 COMPR EHENS YAZMIN METAB OLIC PANEL albumin 4.2 g/dL 3.0-4. 4 Not Available [facility] (Lab) [address] [place], [address], 02/13/2023 20:03:23 02/14/20 23 02/13/2023 COMPR EHENS YAZMIN METAB OLIC PANEL globulin 3.2 g/dL 2.6-4. 2 Not Available [facility] (Lab) [address] [place], [address], 02/13/2023 20:03:23 02/14/20 23 02/13/2023 COMPR EHENS YAZMIN METAB OLIC PANEL A/G ratio 1.3 ratio 1.0-2. 0 Not Available [facility] (Lab) [address] [place], [address], 02/13/2023 20:03:23 02/14/20 23 02/13/2023 T4 FREE free T4 1.08 NG/dL 0.78-2 .19 Not Available [facility] (Lab) [address] [place], [address], 02/13/2023 20:29:09 02/14/20 23 02/13/2023 T3 FREE free T3 3.1 pg/mL 2.77-5 .27 Not Available [facility] (Lab) [address] [place], [address], 02/13/2023 20:29:12 02/14/20 23 02/13/2023 TSH thyroid-stim ulating hormone 3.770 uIU/m L 0.465- 4.680 Not Available [facility] (Lab) [address] [place], [address], 02/13/2023 20:41:52 02/14/20 23 elect rocar diogr am No observ ation record ed. [email or web address] [facility] [address] [facility], [address], [place], [address], 02/13/2023 12:37:29 02/14/20 23 XR, chest [facility] [address] [place] [address] [phone] Patien t Name: MACO ACOSTA Access ion #: [id number] Sex: F : 1939 7 Locati [...] fully imaged here. Page 1 of 2 [facility] t Name: MACO ACOSTA Access ion #: [id number] Sex: F : 1939 7 Exam Date: 12:51 PM Exam Name: XR CHEST 2V Admitt ing Diagno sis(es ): IMPRES GABRIEL: No acute intrat horaci c proces s. Create d and electr onical ly signed by: Pérez hernandez MD Signed Date: 1:00 PM (CT) Dictat ed by: Pérez hernandez MD DD: 1:00 PM (CT) DT: 1:00 PM (CT) Page 2 of 2 [facility] (Imaging) [address] [place], [address], 08/12/2023 09:07:55 02/17/20 23 02/13/2023 elect rocar diogr am No observ ation record ed. BARCODE [facility] [address] [facility], [place], [address], 02/16/2023 10:25:11 02/26/2002/25/2023 , echo ardio gram No observ ation record ed. [email or web address] [facility] [address] [place], [address], 03/16/2023 12:35:47 03/09/20 23 02/25/2023 cardi ac telem etry No observ ation record ed. [email or web address] [facility] [address] , [place], [address], 07/03/2023 09:21:10 04/16/2002/13/2023 elect joanna cobian am No observ ation record ed. BARCODE [facility] [address] [facility], [address], [place], [address], 04/16/2023 13:15:16 04/17/20 23 magaly maneu abhilash (PROC ) No observ ation record ed. [email or web address] [facility] [address], [place], [address], 04/17/2023 14:51:36 08/06/20 23 XR, shoul carolyn No observ ation record ed. [email or web address] [facility] [address] [facility], [address], [place], [address], 08/30/2023 15:23:38 Result Notes Documentation Provider Name and Address Organization Details Recorded Time Xr, Chest : [facility] [address] [place] [address] Patient Name: MACO ACOSTA Sparkle Sex: F : 1940 Location: [facility] Attending Physician: LUIS ANGEL DELGADO Ordering Physician: [...] fully imaged here. Page [address] [facility] Patient Name: MACO ACOSTA Sex: F : 1940 Exam Date: 02/13/2023 12:51 PM Exam Name: XR CHEST 2V Admitting Diagnosis(es): IMPRESSION: No acute intrathoracic process. Created and electronically signed by: Pérez Shields MD Signed Date: 02/13/2023 1:00 PM (CT) Dictated by: Pérez Shields MD (CT) (CT) Page 2 of 2 EMRE [facility] [place] [facility] [place] [email or web address] 08/12/2023 09:07:55 Problems Name Problem SNOMED Code Status Onset Date Resolution Date Notes Provider Name and Address Organization Details Recorded Time Hyperchole sterolemia 09484794 Active Not Available [facility] 3 00:11:43 Acquired trigger finger 4214752 Active Not Available [facility] 3 00:11:43 Backache 821648041 Active Not Available [facility] 3 00:11:43 Radiothera py follow-up 089358479 Active Not Available [facility] 3 00:11:43 Localized, primary osteoarthr itis of the hand 710930533 Active Not Available [facility] 3 00:11:43 Localized, primary osteoarthr itis of the pelvic region and thigh 039532992 Active Not Available [facility] 3 00:11:43 Abdominal pain 72405828 Active Not Available [facility] 3 00:11:43 Radial styloid tenosynovi tis 06330147 Active Not Available [facility] 3 00:11:43 Pure hyperchole sterolemia 011578132 Active Not Available [facility] 3 00:11:43 Vaginal discharge 716943651 Active Not Available [facility] 3 00:11:43 Low back pain 244266497 Active Not Available [facility] 3 00:11:43 Enthesopat hy of hip region 04124109 Active Not Available [facility] 3 00:11:43 Osteopenia 648886844 Active Not Available [facility] 3 00:11:43 Migraine 24320422 Active Not Available [facility] 3 00:11:43 Osteoarthr itis 488613838 Active Not Available [facility] 3 00:11:43 Dizziness 990435102 Active Not Available [facility] 3 00:11:43 Pain of hip region 90897998 Active Not Available [facility] 3 00:11:43 Carpal tunnel syndrome 51739905 Active Not Available [facility] 3 00:11:43 Derangemen t of knee 39429247 Active Not Available [facility] 3 00:11:43 Rhinitis 90266083 Active Not Available [facility] 3 00:11:43 Degenerati on of interverte bral disc 81078559 Active Not Available [facility] 3 00:11:43 Fatigue 46914796 Active Not Available [facility] 3 00:11:43 Anxiety 65031388 Active 2017 Not Available [facility] 3 00:11:43 Neuropathy 637280800 Active 2019 Not Available [facility] 3 00:11:43 Foot pain 93875507 Active 2019 Not Available [facility] 3 00:11:43 Adult health examinatio n Active 2021 Not Available [facility] 3 00:11:43 Screening for malignant neoplasm of colon Active 2021 Not Available [facility] 3 00:11:43 Screening for disorder Active 2021 Not Available [facility] 3 00:11:43 Postmenopa usal state 22380129 Active 2021 Not Available [facility] 3 00:11:43 Pain of shoulder region 94419007 Active 2021 Not Available [facility] 3 00:11:43 Pain of left shoulder joint 8228976969729 9109 Active 2021 Not Available [facility] 3 00:11:43 Gastroesop hageal reflux disease without esophagiti s 824998995 Active 2021 Not Available [facility] 3 00:11:43 Pain of right shoulder joint 8161720611740 9100 Active 2021 Not Available [facility] 3 00:11:43 Finding of fluid behind tympanic membrane 417862643 Active 2022 Not Available [facility] 3 00:11:43 Allergic rhinitis 73874733 Active 2022 Not Available [facility] 3 00:11:43 Dysfunctio n of bilateral eustachian tubes 2301260652814 100 Active 2022 Not Available [facility] 3 00:11:43 Dyspnea 631851202 Active 2022 Not Available [facility] 3 00:11:43 Palpitatio ns 90587396 Active 2022 Not Available [facility] 3 00:11:43 Vertigo 896244742 Active 2022 Not Available [facility] 3 00:11:43 Benign paroxysmal positional vertigo 500519847 Active 2022 Not Available [facility] 3 00:11:43 Benign paroxysmal positional vertigo 458760932 Active 2022 Not Available [facility] 3 00:11:43 Dyspnea on exertion 46164073 Active 2022 Luis Angel Delgado MD [address], [address], [place], [address] , [email or web address] 3 21:06:12 Acute urinary tract infection 053238296 Active 2022 Sheela womack, [facility] 3 14:48:53 Neck pain 67656062 Active 2023 Luis Angel Delgado MD [address], [address], [place], [address] , [email or web address] 4 12:30:43 Notes:02-12-2018--last eye ex am Jun 2017 Some problems listed in Document: #[id number] could not be added to this patient's chart. Please review this document and add these problems to the patient's chart manually as needed. Problem Notes None recorded. Procedures Surgical History Date Name Laterality Status Provider Name and Address Organization Details Recorded Time 02/14/20 23 Medicare Wellness CPT Code, subsequent completed Suki Cole RN [email or web address] 02/13/2023 11:58:59 10/16/19 21 osteotomy and discectomy of cervical spine by anterior approach completed Not Available [facility] 12/03/2022 02:43:11 05/25/20 18 Total hip arthroplasty completed Not Available [facility] 12/03/2022 02:43:11 02/24/20 18 Most Recent Bone Density completed Not Available [facility] 12/03/2022 02:43:02 02/23/20 18 Date of Last Colonoscopy completed Not Available [facility] 12/03/2022 02:43:02 10/31/19 17 Orthopedic Surgery completed Not Available [facility] 12/03/2022 02:43:11 11/01/19 16 Carpal tunnel surgery completed Not Available [facility] 12/03/2022 02:43:11 Orthopedic Surgery completed Not Available [facility] 12/03/2022 02:43:11 Thyroid Surgery completed Not Available [facility] 12/03/2022 02:43:11 Cataract [facility] 12/03/2022 02:43:11 Breast Biopsy completed [facility] 12/03/2022 02:43:11 Hysterectomy completed Not Available [facility] 12/03/2022 02:43:11 Imaging Results None recorded. Procedure Notes None recorded. Medical Equipment None Reported. Allergies Allergen ID Allergen Name Allergen Category Reaction Reaction Severity Criticality Documentation Date Start Date Code Code System Note Provider Name and Address Organization Details Recorded Time 5035 Levaquin medicatio n vomiting Not available Not available 12/03/2022 11403 2 RxNorm n/v Not Available [facility] 3 03:06:18 5036 doxycycli ne Not available nausea mild Not available 12/03/2022 3640 RxNorm Not Available [facility] 3 03:06:18 5037 adhesive tape environme nt,medica tion Not available Not available Not available 12/03/2022 Not Available [facility] 3 03:06:18 5038 adhesive environme nt,medica tion rash Not available Not available 12/03/2022 Not Available [facility] 3 03:06:18 Medications Name Sig Start Date [...] administ ered by the provider 07/[address] [facility]: [id number] -[id number] Not Available Not Available Not [...] administ ered by the provider 04/[address] [facility]: 0409-427 6-17 Not Available Not Available Not [...] Available Not Available Not Avai lable Fluvirin 1341-7412 45 mcg (15 mcg x 3)/0.5 mL intramusc ular suspensio n active Not Available Not Available Not Available Fluvirin 9766-6186 45 mcg (15 mcg x 3)/0.5 mL [...] Not Available Not Avai lable Fluzone High-Dose 5780-6225 (PF) 180 mcg/0.5 mL intramusc ular syringe [...] Updated DateTime 4 157.48 cm 26.5 kg/m2 82808.8 9 g 97.4 [degF] 65 /min 95 % 95 % 128/72 mm[Hg] Raina barajas CMA [email or web address] 4 12:17:51 Date Recorded Pain severity - 0-10 verbal numeric rating [Score] - Reported Provider Name and Address Organization Details Last Updated DateTime 02/13/2023 7 Suki Cole RN [facility] [email or web address] [facility] 02/13/2023 11:59:12 Date Recorded Body height Body mass index (BMI) Body weight Body temperature Heart rate Systolic And Diastolic Provider Name and Address Organization Details Last Updated DateTime 3 162.56 cm 25.4 kg/m2 17902.6 7 g 99.1 [degF] 64 /min 140/72 mm[Hg] Amrita Wang Kari [facility] 11:45:16 Date Recorded Body height Body mass index (BMI) Body weight Body temperature Provider Name and Address Organization Details Last Updated DateTime 03/26/2023 162.56 cm 25.6 kg/m2 57275.7 g 97.8 [degF] Cassandra Lechuga RN [facility] [email or web address] [facility] 03/26/2023 12:34:19 Date Recorded Body height Body mass index (BMI) Body weight Body temperature Heart rate Systolic And Diastolic Provider Name and Address Organization Details Last Updated DateTime 3 162.56 cm 25.1 kg/m2 82344.4 9 g 97.4 [degF] 69 /min 140/80 mm[Hg] Amrita Wang Kari [facility] 3 12:01:52 Date Recorded Body height Body mass index (BMI) Body weight Provider Name and Address Organization Details Last Updated DateTime 08/06/2023 157.48 cm 26.5 kg/m2 41830.89 g Cheyanne Peralta Kari [facility] 08/06/2023 15:01:11 Social History Question Answer Notes LastModified by Organization Details LastModified Time Tobacco Smoking Status Former Smoker quit age 45 Not Available [employer] 12/03/2022 02:29:04 Do You Have An Advance Directive? No MIGRATION.300 [id number] Information not available 12/03/2022 Are You Blind Or Do You Have Difficulty Seeing? No MIGRATION.030 532215 Information not available 12/03/2022 What Is Your Level Of Caffeine Consumption? Moderate MIGRATION.030 876899 Information not available 12/03/2022 How Much Tobacco Do You Chew? None MIGRATION.030 [id number] Information not available 12/03/2022 In The 14 Days Before Symptom Onset, Have You Had Close Contact With A Laboratory-conf irmed COVID-19 While That Case Was Ill? No MIGRATION.030 [id number] Information not available 12/03/2022 In The 14 Days Before Symptom Onset, Have You Had Close Contact With A Person Who Is Under Investigation For COVID-19 While That Person Was Ill? No MIGRATION.030 942407 Information not available 12/03/2022 Are You Deaf Or Do You Have Serious Difficulty Hearing? Yes Hearing Aid Bi Laterial MIGRATION.030 400868 Information not available 12/03/2022 What Type Of Diet Are You Following? REGULAR MIGRATION.030 922909 Information not available 12/03/2022 Which Illicit Or Recreational Drugs Have You Used? None MIGRATION.030 891360 Information not available 12/03/2022 What Is The Highest Grade Or Level Of School You Have Completed Or The Highest Degree You Have Received? CX07694-0 MIGRATION.300 445445 Information not available 12/03/2022 Have There Been Any Changes To Your Family Or Social Situation? No MIGRATION.030 041776 Information not available 12/03/2022 What Is The Fluoride Status Of Your Home? Unknown MIGRATION.030 852507 Information not available 12/03/2022 When Did You Quit Smoking? 18+yearssincelastc igarette MIGRATION.030 334674 Information not available 12/03/2022 Are There Any Guns Present In Your Home? No MIGRATION.030 341284 Information not available 12/03/2022 Do You Use Insect Repellent Routinely? No MIGRATION.030 229943 Information not available 12/03/2022 Where Do You [...] Do You Have A Medical Power Of Cable Splicer? No MIGRATION.0301 610483 Information not available 12/03/2022 What Was The Date Of Your Most Recent Tobacco Screening? 07/02/2023 [email or web address] Information not available 07/02/2023 Do You Have Any Pets? No MIGRATION.0301 519097 Information not available 12/03/2022 What Is Your Relationship Status? MIGRATION.0301 075702 Information not available 12/03/2022 Do You Use Your Seat Belt Or Car Seat Routinely? Yes MIGRATION.0301 355540 Information not available 12/03/2022 Do You Have Smoke And Carbon Monoxide Detectors In Your Home? Yes MIGRATION.0301 [id number] Information not available 12/03/2022 Are You Passively Exposed To Smoke? No MIGRATION.0301 394953 Information not available 12/03/2022 Are There Any Smokers In Your House? No MIGRATION.0301 145379 Information not available 12/03/2022 How Much Tobacco Do You Smoke? No MIGRATION.0301 [id number] Information not available 12/03/2022 Do You Use Sunscreen Routinely? No MIGRATION.0301 169493 Information not available 12/03/2022 Has Tobacco Cessation Counseling Been Provided? No MIGRATION.0301 967149 Information not available 12/03/2022 How Many Years Have You Smoked Tobacco? 20 MIGRATION.0301 537278 Information not available 12/03/2022 Have You Recently Traveled Abroad? No MIGRATION.0301 832950 Information not available 12/03/2022 Do You Have Difficulty Walking Or Climbing Stairs? Yes MIGRATION.0301 351606 Information not available 12/03/2022 Do You Have Any Dietary Restrictions? No Information not available 02/13/2023 Sex: Female Functional Status Question Answer Note LastModified by Organizat ion Details LastModified Time Do you use any illicit or recreational drugs? No MIGRATION.[id number] 8173 Information not available 12/03/2022 Do you or have you ever used any other forms of tobacco or nicotine? No MIGRATION.075757 3592 Information not available 12/03/2022 What is your level of alcohol consumption? None MIGRATION.727688 1521 Information not available 12/03/2022 Do you or have you ever used smokeless tobacco? Never used smokeless tobacco MIGRATION.129447 7422 Information not available 12/03/2022 Do you have transportation difficulties? No MIGRATION.344866 1552 Information not available 12/03/2022 Are you able to walk independently without assistance or assistive devices? YESWOREST Information not available 02/13/2023 Do you have difficulty doing errands alone? No Information not available 02/13/2023 Are you able to care for yourself independently? Yes MIGRATION.076299 0034 Information not available 12/03/2022 What is your occupation? retired MIGRATION.800366 8307 Information not available 12/03/2022 Do you have difficulty dressing, bathing, grooming, or toileting? No MIGRATION.016424 0945 Information not available 12/03/2022 Do you or have you ever used e-cigarettes or vape? Never used electronic cigarettes MIGRATION.230375 6497 Information not available 12/03/2022 What is your exercise level? Occasional Information not available 02/13/2023 Mental Status Question Answer Note LastModified by Organizat ion Details LastModified Time Do you feel stressed (tense, restless, nervous, or anxious, or unable to sleep at night)? [id number] MIGRATION.18193598 26 Information not available 12/03/2022 Do you have difficulty concentrating, remembering or making decisions? No MIGRATION.30502049 26 Information not available 12/03/2022 Family History Relationship Description Onset Age of this Age Resolved Age Notes LastModified by Organization Details LastModified Time Mother Hypertensive disorder MIGRATION.892 [id number] Not available 12/03/2022 02:43:13 Mother Family history of stroke MIGRATION.687 [id number] Not available 12/03/2022 02:43:13 Father Amyotrophic lateral sclerosis MIGRATION.285 [id number] Not available 12/03/2022 02:43:13 Sister Malignant lymphoma 78 MIGRATION.641 [id number] Not available 12/03/2022 02:43:14 Notes:NO ENT Medical [...] N MUMPS N SCHIZOPHRENIA N SHINGLES N BOWEL PROBLEMS N SHOULDER PAIN N DEPRESSION (INCLUDING POST ) N STROKE/TIA N ULCERS N KNEE PAIN N BENIGN PROSTATIC HYPERPLASIA N MEASLES N [...] N HEART VALVE DISORDERS N DIVERTICULITIS N SLEEP APNEA N CHICKENPOX N ALLERGIES/HAYFEVER N SOFT TISSUE INJURY N INFECTIOUS DISEASE N PROSTATE N HEART ARRHYTHMIA N INSOMNIA N RHEUMATOID ARTHRITIS N HIGH CHOLESTEROL / HYPERLIPIDEMIA N EYE PROBLEMS N HYPERTHYROIDISM N EDEMA N CHRONIC PAIN SYNDROME N HYPOTHYROIDISM N CAROTID BLOCKAGE N CONSTIPATION N BACK / NECK PROBLEMS Y HAVE YOU BEEN HOSPITALIZED OR SEEN IN [facility] IN THE PAST YEAR ? [...] influenza, unspecified formulation 2 completed Not Available [facility]16[facility]23 04:21:25 COVID-19, mRNA, LNP-S, PF, 30 mcg/0.3 mL dose 2 completed Not Available [facility] 06/16/2023 04:21:25 COVID-19, mRNA, LNP-S, PF, 30 mcg/0.3 mL dose 2 completed Not Available [facility] 06/16/2023 04:21:25 COVID-19 vaccine, vector-nr, rS-Ad26, PF, 0.5 mL 1 completed Not Available [facility] 06/16/2023 04:21:25 Influenza, split virus, trivalent, preservative 9 completed Not Available [facility] 06/16/2023 04:21:26 Influenza, high-dose, trivalent, PF 8 completed Not Available [facility] 06/16/2023 04:21:25 Influenza, high-dose, trivalent, PF 7 completed Not Available [facility] 06/16/2023 04:21:25 Influenza, high-dose, trivalent, PF 6 completed Not Available [facility] 06/16/2023 04:21:26 COVID-19 vaccine, vector-nr, rS-ChAdOx1, PF, 0.5 mL 1 completed Not Available [facility] 06/16/2023 04:21:25 pneumococcal polysaccharide PPV23 2 completed Not Available [facility] hospital 06/16/2023 04:21:25 zoster live 4 completed Not Available [facility] 06/16/2023 04:21:25 Influenza, high-dose, quadrivalent, PF 1 completed Not [facility] 04:21:25 Influenza, high-dose, quadrivalent, PF 0 completed Not Available [facility] hospital 06/16/2023 04:21:25 Pneumococcal conjugate PCV 13 6 completed Not Available [facility] hospital 06/16/2023 04:21:25 Past Encounters Encounter ID Performer Location Encounter Start Date Encounter Closed Date Diagnosis/Indication Diagnosis SNOMED-CT Code Diagnosis ICD10 Code Diagnosis IMO Codes Diagnosis Note [id number] Luis Angel Delgado MD [facility] Med [facility] [address] [place] [address] 12/14/2020 00:00:00 12/14/2020 21:49:10 [id number] Luis Angel Delgado MD [facility] [place] Med [facility] [address] [place] [address] 1 04/12/2021 00:00:00 04/13/2021 21:25:52 [id number] Daniel Mo MD [facility] [place] [address] [place] [address] 07/19/2021 00:00:00 07/19/2021 13:00:41 [id number] Luis Angel Delgado MD [facility] Internal Med [facility] [address] [place] [address] 1 08/09/2021 00:00:00 08/18/2021 22:20:38 [id number] Luis Angel Delgado MD [facility] Internal Med [facility] [address] [place] [address] 1 12/06/2021 00:00:00 12/29/2021 16:56:16 [id number] Luis Angel Delgado MD [facility] Internal Med [address] [address] 03/11/2022 00:00:00 03/11/2022 18:36:46 [id number] Daniel Mo MD [facility] [place] [address] [place] [address] 03/26/2022 00:00:00 03/26/2022 15:28:00 [id number] Luis Angel Delgado MD [facility] Internal Med [facility] [address] [facility], [address] [address] 04/11/2022 00:00:00 05/05/2022 22:41:13 [id number] Daniel Mo MD [facility] [place] [address] [place] [address] 07/09/2022 00:00:00 07/10/2022 09:45:36 [id number] Luis Angel Delgado MD [facility] Internal Med [facility] [address] [address] 08/15/2022 00:00:00 08/16/2022 17:54:56 [id number] Daniel Mo MD [facility] [place] [address] [place] [address] 08/20/2022 00:00:00 08/20/2022 11:52:25 [id number] Jose Gary MD [facility] [place] [address] [place], [place] [address] [address] 11/18/2022 00:00:00 11/18/2022 12:42:03 [id number] Luis Angel Delgado MD [facility] Internal Med [facility] [address] [facility], [address] [address] 02/13/2023 11:14:36 02/13/2023 12:32:05 Anxiety 51899366 F41.9 Adult [facility] th examination 648518883 Z00.00 Screening for disorder 218630602 Z13.9 Dyspnea 399742155 R06.00 Hypercholesterolemia 136 73739 E78.00 Palpitations 67324121 R0 0.2 Vertigo 389224249 R42 [id number] Jose Gary MD [facility] [place] [address] [place] [address] 03/26/2023 12:25:43 03/26/2023 12:46:16 Benign paroxysmal positional vertigo 184563566 H81.10 [id number] Luis Angel Delgado MD [facility] Internal Med [place] [address] [facility], [facility] [address] [place] [address] 07/02/2023 11:29:29 07/02/2023 12:55:10 Gastroesophageal reflux disease without esophagitis 984386400 K21.9 Anxiety 46746724 F41.9 Benign par oxysmal positional vertigo 570984744 H81.10 Hypercholesterolemia 136 89931 E78.00 Migraine 42855628 G43.90 9 Dyspnea on exertion 6084 5006 R06.09 [id number] Daniel Mo MD [facility] [address] [facility], [address] [place] [address] 08/06/2023 14:15:56 08/31/2023 10:47:01 Pain of right shoulder joint 4850894990 4440683 M25.354 [id number] Luis Angel Delgado MD [facility] Internal Med [facility] [address] [facility], [facility] [address] [place] [address] 10/28/2023 10:57:22 10/28/2023 12:23:41 Gastroesophageal reflux disease without esophagitis 314456297 K21.9 Anxiety 97321511 F41.9 Pure hypercholesterolemia 965696263 E78.00 Neuropathy 557649727 G62 .9 Migraine 48644335 G43.90 9 Neck pain 09308974 M54.2 Health Concerns Section Related Observation LastModified by Organization Detai ls LastModified Time None Recorded Concern Status LastModified by Organization Details LastModified Time None Recorded Advance Directives Directive N: Payers Insurance Date Sequence Insurance Name Policy Number Policy Lee Covered Member ID Lee Member ID Guarantor Name 03/07/2025 1 [place] Maco Acosta [id number] Maco Acosta 03/07/2025 2 [employer] SU[employer]LEMENTAL - [employer] (MEDICARE SUPPLEMENT) Maco Acosta [id number] Maco Acosta Notes Date Note Type Note Provider Name and Address Organization Details Recorded Time 02/13/2023 text/html Some persistent vertigoOccasional dyspnea some arrest some notDyslipidemia trying to follow low-fat dietOccasional palpitation but no syncope or presyncopeAnxiety stableMigraine stable Luis Angel Delgado MD [address], [place], [address], [employer] [facility] [employer] 03/01/2023 14:26:52 03/26/2023 text/html this patient has had positional vertigo for 8 years. She reports having had an MRI which was normal and a carotid Doppler which was also normal. She has not had any balance test Jose Gary MD [address], [place], [address], [employer] [facility] [employer] 03/26/2023 12:45:07 07/02/2023 text/html Some persistent vertigoOccasional dyspnea no chest pain saw cardiology who she said ordered a bunch of tests test none of which she wants to pursueDyslipidemia trying to follow low-fat dietOccasional palpitation but no syncope or presyncopeAnxiety stableMigraine stable Luis Angel Delgado MD [address], [place], [address], [employer] [facility] [employer] 07/12/2023 21:06:41 08/06/2023 text/html Patient returns. She [...] Mo MD [address], [place], [address], [employer] [facility] [employer] 08/30/2023 15:25:25 10/28/2023 text/html Some persistent vertigoOccasional dyspnea no chest pain saw cardiology who she said ordered a bunch of tests test none of which she wants to pursueDyslipidemia trying to follow low-fat dietOccasional palpitation but no syncope or presyncopeAnxiety stableMiyareli Campbell has some back spasm from time to time with her neck Luis Angel Delgado MD [address] [facility], [facility] [address], [place], [address], [facility] 11/03/2023 22:01:15 OBGyn Episode No OBEpisode recorded.
== END 2025-07-31 13:30 | disposition home or self-care (01) ==
LOC: ANHFOHIMG 13:31
PROVIDERS: PCP Family Medicine; Visit Provider Family Medicine
DX: M85.89 Other specified disorders of bone density and structure, multiple sites (principal); Z78.0 Asymptomatic menopausal state; Z13.820 Encounter for screening for osteoporosis
CPT/HCPCS: 77080